=== PATIENT | female | born 1960 | race Caucasian/White ===

== ENCOUNTER 2017-09-16 08:28 | Emergency (ER) | payer SELFPAY ==
[2017-09-16 09:13] LABS: ABSOLUTE BASOPHILS # (AUTO) 0.1 10^3/uL (0.0-0.2); ABSOLUTE LYMPHOCYTES (AUTO) 1.3 10^3/uL (0.5-4.7); ABSOLUTE MONOCYTES (AUTO) 0.2 10^3/uL (0.1-1.4); ABSOLUTE NEUT (AUTO) 9.9 10^3/uL (1.7-8.2); BASOPHILS % (AUTO) 0.6 % (0-2); EOSINOPHILS % (AUTO) 0.1 % (0-6); HEMATOCRIT 42.8 % (36.0-47.0); HEMOGLOBIN 14.7 g/dL (12.0-15.5); LYMPHOCYTES % (AUTO) 11.3 % (13-45); MEAN CORPUSCULAR HEMOGLOBIN 31.7 pg (27.0-33.4); MEAN CORPUSCULAR HGB CONC 34.5 g/dL (32.0-36.0); MEAN CORPUSCULAR VOLUME 92 fl (80-97); MONOCYTES % (AUTO) 1.8 % (3-13); PLATELET COUNT 324 10^3/uL (150-450); RED BLOOD COUNT 4.65 10^6/uL (3.72-5.28); RED CELL DISTRIBUTION WIDTH 13.2 % (11.5-14.0); SEGMENTED NEUTROPHILS % (AUTO) 86.2 % (42-78); TOTAL CELLS COUNTED % (AUTO) 100 %; WHITE BLOOD COUNT 11.5 10^3/uL (4.0-10.5)
--- NOTE | 2017-09-16 09:16 | ER Document Report ---
ED GI/ - General Chief Complaint: Vomiting Stated Complaint: LOWER BACK PAIN/VOMITING Time Seen by Provider: 09/16/17 09:15 Mode of Arrival: Ambulatory Information source: Patient Notes: Patient is a 56-year-old female with a history of chronic low back pain who presents to the ER today for low back pain that seems to be worsening normal without any injury with nausea, vomiting and diarrhea that all began last night. Patient states that she "has not been able to sleep at all because of the pain. She states that the pain is worse on the right lower side. Patient denies any history of kidney stones, she does state that it does radiate around into the right upper abdomen. She denies any history of gallbladder disease or stones, does still have her gallbladder. She denies any fevers but admits to chills today. She denies any burning with urination or hematuria. TRAVEL OUTSIDE OF THE [place] IN LAST 30 DAYS: No - Related Data Allergies/Adverse Reactions: No Known Allergies Allergy (Verified 09/16/17 08:30) Past Medical History - General Information source: Patient - Social History Smoking Status: Current Every Day Smoker Family History: Malignancy - Breast cancer mother - Past Medical History Cardiac Medical History: Denies: Hx Coronary Artery Disease, Hx Heart Attack, Hx Hypertension Pulmonary Medical History: Reports: Hx Asthma Denies: Hx Bronchitis, Hx COPD, Hx Pneumonia Neurological Medical History: Denies: Hx Cerebrovascular Accident, Hx Seizures Musculoskeltal Medical History: Denies Hx Arthritis Past Surgical History: Reports: Hx Section. Denies: Hx Hysterectomy, Hx Pacemaker - Immunizations Hx Diphtheria, Pertussis, Tetanus Vaccination: Yes Review of Systems - Review of Systems Constitutional: No symptoms reported EENT: No symptoms reported Cardiovascular: No symptoms reported Respiratory: No symptoms reported Gastrointestinal: See HPI Genitourinary: See HPI Female Genitourinary: No symptoms reported Musculoskeletal: See HPI Skin: No symptoms reported Hematologic/Lymphatic: No symptoms reported Neurological/Psychological: No symptoms reported Physical Exam - Vital signs Vitals: Temp Pulse Resp BP Pulse Ox 97.8 F 67 20 152/93 H 99 09/16/17 08:35 09/16/17 08:35 09/16/17 08:35 09/16/17 08:35 09/16/17 08:35 - Notes Notes: PHYSICAL EXAMINATION: GENERAL: Obviously uncomfortable, but in no acute distress. HEAD: Atraumatic, normocephalic. EYES: Pupils equal round and reactive to light, extraocular movements intact, sclera anicteric, conjunctiva are normal. NECK: Normal range of motion, supple without lymphadenopathy LUNGS: CTAB and equal. No wheezes rales or rhonchi. HEART: Regular rate and rhythm without murmurs ABDOMEN: Soft, right upper quadrant, epigastric tenderness. No guarding, no rebound BACK: no vertebral tenderness, normal ROM GI/: Right CVA tenderness EXTREMITIES: Normal range of motion, no pitting edema. No cyanosis. NEUROLOGICAL: Cranial nerves grossly intact. Normal sensory/motor exams. PSYCH: Normal mood, normal affect. SKIN: Warm, Dry, normal turgor, no rashes or lesions noted Course - Re-evaluation Re-evalutation: 09/16/17 18:45 Patient's white blood cell count is mildly elevated at 11.5, other lab work today is unremarkable including a normal lipase and liver function, bilirubin, right upper quadrant ultrasound and CAT scan of the abdomen limited report no kidney stone or gallbladder disease. I believe this is likely viral in origin as patient started having nausea, vomiting, abdominal pain and diarrhea all at the same time today. Patient also has chronic back pain that may just be exacerbated by this. - Vital Signs Vital signs: Temp Pulse Resp BP Pulse Ox 98.5 F 81 18 116/66 95 09/16/17 12:55 09/16/17 12:55 09/16/17 12:55 09/16/17 12:55 09/16/17 12:55 - Laboratory Result Diagrams: 09/16/17 09:00 09/16/17 09:00 Laboratory results interpreted by me: 09/16/17 09/16/17 09/16/17 09:00 09:00 09:00 WBC 11.5 H Seg Neutrophils % 86.2 H Lymphocytes % 11.3 L Monocytes % 1.8 L Absolute Neutrophils 9.9 H Glucose 172 H Urine Protein 100 H Discharge - Discharge Clinical Impression: Abdominal pain Qualifiers: Abdominal location: lower abdomen, unspecified Qualified Code(s): R10.30 - Lower abdominal pain, unspecified Nausea & vomiting Qualifiers: Vomiting type: unspecified Vomiting Intractability: non-intractable Qualified Code(s): R11.2 - Nausea with vomiting, unspecified Diarrhea Qualifiers: Diarrhea type: unspecified type Qualified Code(s): R19.7 - Diarrhea, unspecified Back pain Qualifiers: Back pain location: low back pain Chronicity: acute Back pain laterality: right Sciatica presence: without sciatica Qualified Code(s): M54.5 - Low back pain Condition: Stable Disposition: HOME, SELF-CARE Instructions: Vomiting ([facility]) Additional Instructions: Drink plenty of fluids. Return immediately for any new or worsening symptoms. Follow up with primary care provider, call tomorrow to make followup appointment. Prescriptions: Ketorolac Tromethamine [Toradol 10 mg Tablet] 10 mg PO Q6HP PRN #15 tablet PRN Reason: Ondansetron [Zofran Odt 4 mg Tablet] 1 - 2 tab PO Q4H PRN #30 tab.rapdis PRN Reason: For Nausea/Vomiting
[2017-09-16] MEDS ORDERED: METOCLOPRAMIDE HCL INJ/PF 10 MG/2 ML SDV IV ONE (09:24)
[2017-09-16] MEDS ORDERED: NORMAL SALINE 1000 ML 1,000 ML IV ONE (09:24)
[2017-09-16] MEDS ORDERED: KETOROLAC TROMETHAMINE INJ/PF 30 MG/1 ML SDV IV ONE (09:24)
[2017-09-16 09:28] LABS: ALANINE AMINOTRANSFERASE 20 U/L (9-52); ALKALINE PHOSPHATASE 79 U/L (38-126); ANION GAP 12 (5-19); ASPARTATE AMINO TRANSFERASE 25 U/L (14-36); BILIRUBIN,DIRECT 0.3 mg/dL (0.0-0.4); BILIRUBIN,TOTAL 0.9 mg/dL (0.2-1.3); BLOOD UREA NITROGEN 9 mg/dL (7-20); CARBON DIOXIDE 30 mmol/L (22-30); CHLORIDE 102 mmol/L (98-107); GLUCOSE 172 mg/dL (75-110); POTASSIUM 4.6 mmol/L (3.6-5.0); SODIUM 143.6 mmol/L (137-145); TOTAL PROTEIN 8.2 g/dL (6.3-8.2)
[2017-09-16 09:52] LABS: APPEARANCE,URINE CLEAR; BILIRUBIN,URINE NEGATIVE (NEGATIVE); COLOR,URINE YELLOW; GLUCOSE, URINE NEGATIVE (NEGATIVE); KETONES,URINE NEGATIVE (NEGATIVE); LEUKOCYTE ESTERASE,URINE NEGATIVE (NEGATIVE); NITRITE,URINE NEGATIVE (NEGATIVE); PROTEIN,URINE 100 mg/dL (NEGATIVE); URINE SPECIFIC GRAVITY 1.021; UROBILINOGEN,URINE NEGATIVE mg/dL (<2.0)
--- NOTE | 2017-09-16 10:36 | RADIOLOGY REPORT (SQ) ---
EXAM DESCRIPTION: CT LTD RENAL STONE PROTOCOL ON COMPLETED DATE/TIME: 09/16/2017 9:59 am REASON FOR STUDY: right flank pain COMPARISON: 11/13/2010 TECHNIQUE: CT scan of the abdomen and pelvis performed without intravenous or oral contrast. Images reviewed with lung, soft tissue, and bone windows. Reconstructed coronal and sagittal MPR images revi ewed. All images stored on PACS. All CT scanners at this facility use dose modulation, iterative reconstruction, and/or weight based d osing when appropriate to reduce radiation dose to as low as reasonably achievable (ALARA). [facility]: Dose Right [facility]: CareDose [facility]: Dose Right [facility]: Teradose 4D [facility]: Smart [employer] RADIATION DOSE: CT Rad equipment meets quality standard of care and radiation dose reduction techniq ues were employed. CTDIvol: 4.8 mGy. DLP: 230 mGy-cm.mGy. LIMITATIONS: None. FINDINGS: LOWER CHEST: Mild emphysematous changes in the lungs. A 5-6 mm calcified granuloma at th e right lung base, stable finding. NON-CONTRASTED LIVER, SPLEEN, ADRENALS: Evaluation limited by lack of IV contrast. No identified sign ificant masses. PANCREAS: No masses. No peripancreatic inflammatory changes. GALLBLADDER: No identified stones by CT criteria. No inflammatory changes to suggest cholecystitis. RIGHT KIDNEY AND URETER: No suspicious masses. Assessment limited by lack of IV contrast. No signif icant calcifications. No hydronephrosis or hydroureter. LEFT KIDNEY AND URETER: No suspicious masses. Assessment limited by lack of IV contrast. No signifi cant calcifications. No hydronephrosis or hydroureter. AORTA AND RETROPERITONEUM: Atherosclerotic changes involving the abdominal aorta. No aneurysm. No r etroperitoneal masses or adenopathy. BOWEL AND PERITONEAL CAVITY: No obvious masses or inflammatory changes. No free fluid. APPENDIX: Normal. PELVIS, BLADDER, AND ABDOMINAL WALL:No abnormal masses. No free fluid. Bladder normal. BONES: The osseous structures are stable in appearance. Degenerative changes involving the lumbar s pine with disc disease at L1-2 and L5-S1. OTHER: No other significant finding. IMPRESSION: 1 NO SIGNIFICANT OR ACUTE PROCESS IN THE ABDOMEN OR PELVIS. 2. Additional stable findings as above. COMMENT: Quality ID # [id number]: Final reports with documentation of one or more dose reduction techniques (e.g., Automated exposure control, adjustment of the mA and/or kV according to patient size, use of iterative reconstruction technique) TECHNICAL DOCUMENTATION: JOB ID: [id number] [employer]- All Rights Reserved Reading location - IP/workstation name: [email or web address]
[2017-09-16] MEDS ORDERED: ONDANSETRON 4 MG TAB.RAPDIS PO ONE (10:56)
[2017-09-16] MEDS ORDERED: MORPHINE SULFATE 10 MG/ML INJ IV ONE ×2 (10:56→12:43)
--- NOTE | 2017-09-16 12:12 | RADIOLOGY REPORT (SQ) ---
EXAM DESCRIPTION: U/S ABDOMEN LIMITED W/O DOP COMPLETED DATE/TIME: 09/16/2017 11:45 am REASON FOR STUDY: ruq pain, rlq pain, right flank pain, n/v/d COMPARISON: None. TECHNIQUE: Dynamic and static grayscale images acquired of the abdomen and recorded on PACS. Additio nal selected color Doppler and spectral images recorded. LIMITATIONS: None. FINDINGS: PANCREAS: No masses. Visualized pancreatic duct normal caliber. LIVER: The liver measures 13.3 cm. No masses. Echotexture normal. LIVER VASCULATURE: Normal directional flow of the main portal vein and hepatic veins. GALLBLADDER: No stones. The gallbladder wall measures 1.4 mm, normal wall thickness. No pericholecys tic fluid. ULTRASOUND-DETECTED CENTENO'S SIGN: Negative. INTRAHEPATIC DUCTS AND COMMON DUCT: CBD measures 3.1 mm in diameter, normal. The intrahepatic ducts normal caliber. No filling defects. INFERIOR VENA CAVA: Normal flow. AORTA: No aneurysm. RIGHT KIDNEY: The right kidney measures 10.3 cm, normal size. Normal echogenicity. No solid or suspi cious masses. No hydronephrosis. No calcifications. PERITONEAL AND RIGHT PLEURAL SPACE: No ascites or effusions. OTHER: No other significant findings. IMPRESSION: NORMAL RIGHT UPPER QUADRANT ULTRASOUND. TECHNICAL DOCUMENTATION: JOB ID: [id number] [employer]- All Rights Reserved Reading location - IP/workstation name: [email or web address]
[2017-09-16 13:00] VITALS: BP 116/66
== END 2017-09-16 13:00 | disposition home or self-care (01) ==
LOC: ER 08:28
DX: M54.5 Low back pain (principal); R10.30 Lower abdominal pain, unspecified; R11.2 Nausea with vomiting, unspecified; R19.7 Diarrhea, unspecified; F17.200 Nicotine dependence, unspecified, uncomplicated; J45.909 Unspecified asthma, uncomplicated
CPT/HCPCS: 99284; 96361; 96374; 96375; 36415; 83690; 85025; 80053; 81001; 76705; 76380; S0119; J1885; J2765; J2270; J7030

== ENCOUNTER 2017-09-17 17:59 | Emergency (ER) | payer SELFPAY ==
[2017-09-17 18:14] VITALS: BP 151/76
[2017-09-17] MEDS ORDERED: PROMETHAZINE HCL INJ 25 MG/1 ML VIAL IM ONE (18:37)
--- NOTE | 2017-09-17 18:42 | ER Document Report ---
ED GI/ - General Chief Complaint: Vomiting Stated Complaint: VOMITING AND BACK PAIN Time Seen by Provider: 09/17/17 18:30 Notes: The patient is a 56-year-old female, past medical history chronic back pain, presents with 2 days of nausea, vomiting and diarrhea. She was seen in the ER yesterday and had a negative workup, including a normal CAT scan, right upper quadrant ultrasound and blood work. She was given Zofran, but does not feel this is helping her nausea. She is only able to drink small sips of fluids. Denies any change in pain, hematemesis, fevers TRAVEL OUTSIDE OF THE [place] IN LAST 30 DAYS: No - Related Data Allergies/Adverse Reactions: No Known Allergies Allergy (Verified 09/16/17 08:30) Past Medical History - General Information source: Patient - Social History Smoking Status: Current Every Day Smoker Chew tobacco use (# tins/day): No Frequency of alcohol use: Rare Drug Abuse: Marijuana Family History: Malignancy - Breast cancer mother Patient has suicidal ideation: No Patient has homicidal ideation: No - Past Medical History Cardiac Medical History: Denies: Hx Coronary Artery Disease, Hx Heart Attack, Hx Hypertension Pulmonary Medical History: Reports: Hx Asthma Denies: Hx Bronchitis, Hx COPD, Hx Pneumonia Neurological Medical History: Denies: Hx Cerebrovascular Accident, Hx Seizures Renal/ Medical History: Denies: Hx Peritoneal Dialysis Musculoskeltal Medical History: Denies Hx Arthritis Past Surgical History: Reports: Hx Section. Denies: Hx Hysterectomy, Hx Pacemaker - Immunizations Hx Diphtheria, Pertussis, Tetanus Vaccination: Yes Review of Systems - Review of Systems Notes: REVIEW OF SYSTEMS: CONSTITUTIONAL: -fevers, -chills EENT: -eye pain, -difficulty swallowing, -nasal congestion CARDIOVASCULAR: -chest pain, -syncope. RESPIRATORY: -cough, -SOB GASTROINTESTINAL: -abdominal pain, +nausea, +vomiting, +diarrhea GENITOURINARY: -dysuria, -hematuria MUSCULOSKELETAL: -back pain, -neck pain SKIN: -rash or skin lesions. HEMATOLOGIC: -easy bruising or bleeding. LYMPHATIC: -swollen, enlarged glands. NEUROLOGICAL: -altered mental status or loss of consciousness, -headache, - neurologic symptoms PSYCHIATRIC: -anxiety, -depression. ALL OTHER SYSTEMS REVIEWED AND NEGATIVE. Physical Exam - Vital signs Vitals: Temp Pulse Resp BP Pulse Ox 98.3 F 76 18 151/76 H 96 09/17/17 18:13 09/17/17 18:13 09/17/17 18:13 09/17/17 18:13 09/17/17 18:13 - Notes Notes: PHYSICAL EXAMINATION: GENERAL: Well-appearing, well-nourished and in no acute distress. HEAD: Atraumatic, normocephalic. EYES: Pupils equal round and reactive to light, extraocular movements intact, sclera anicteric, conjunctiva are normal. ENT: nares patent, oropharynx clear without exudates. Moist mucous membranes. NECK: Normal range of motion, supple without lymphadenopathy LUNGS: Breath sounds clear to auscultation bilaterally and equal. No wheezes rales or rhonchi. HEART: Regular rate and rhythm without murmurs ABDOMEN: Soft, nontender, normoactive bowel sounds. No guarding, no rebound. No masses appreciated. EXTREMITIES: Normal range of motion, no pitting or edema. No cyanosis. NEUROLOGICAL: Cranial nerves grossly intact. Normal speech, normal gait. Normal sensory and motor exams. PSYCH: Normal mood, normal affect. SKIN: Warm, Dry, normal turgor, no rashes or lesions noted. Course - Re-evaluation Re-evalutation: Patient does not appear to be severely dehydrated with normal vital signs and moist mucous membranes. After Phenergan, she is tolerating fluids well in the emergency room. She already had negative CAT scan and ultrasound of her right upper quadrant yesterday, as well as normal blood work. Will discharge home with Phenergan and instructions to stay hydrated, as the patient says Zofran does not work as well. - Vital Signs Vital signs: Temp Pulse Resp BP Pulse Ox 98.3 F 76 18 151/76 H 96 09/17/17 18:13 09/17/17 18:13 09/17/17 18:13 09/17/17 18:13 09/17/17 18:13 - Laboratory Laboratory results interpreted by me: 09/17/17 18:40 Urine Protein 30 H Urine Ketones 20 H Urine Blood MODERATE H Ur Leukocyte Esterase SMALL H Discharge - Discharge Clinical Impression: Nausea & vomiting Qualifiers: Vomiting type: unspecified Vomiting Intractability: unspecified Qualified Code( s): R11.2 - Nausea with vomiting, unspecified Diarrhea Qualifiers: Diarrhea type: unspecified type Qualified Code(s): R19.7 - Diarrhea, unspecified Condition: Stable Disposition: HOME, SELF-CARE Additional Instructions: VOMITING: Vomiting (or nausea without vomiting) can be caused by many other different problems. It can mean that something's wrong with the stomach, such as ulcers or inflammation or the intestinal tract, such as appendicitis. But it can also be a symptom of a problem that has nothing to do with the stomach or intestines. Vomiting is common with severe headaches, earaches, tonsillitis, and kidney infections, etc. We see it with pneumonia or heart attacks. Drugs can cause nausea and vomiting. Many abdominal problems cause vomiting; for example, gallstones, kidney stones, pancreatitis, and intestinal obstruction ( blocked bowels). In most cases, curing the vomiting depends on fixing the problem that caused it. For temporary relief, we may use an anti-nausea medicine. For home use, we can prescribe suppositories, chewable pills, pills that dissolve in the mouth, or liquid anti-nausea drugs. If the vomiting seems to be caused by a problem in the stomach, acid-suppressing drugs may be prescribed as well. It's important to avoid dehydration. Sip small amounts of clear liquids ( soft drinks, tea, broth, etc) . Try to take fluids frequently even if you are vomiting to prevent dehydration. Take increasing amounts of fluid and when liquids are being consumed successfully, advance to small amounts of bland food (toast, soups, mashed potatoes, etc.) until you are able to resume a regular diet. Avoid aspirin, tobacco, and alcohol. If the vomiting worsens, if the problem that's making you vomit worsens, or if there's evidence of bleeding in the stomach (such as black, tarry stool, or bloody or black vomit), you should return immediately. Also, return if abdominal pain worsens or becomes localized to one area or you develop high fever. Call your doctor if you aren't improved in 24 hours. DIARRHEA, NON-SPECIFIC: Diarrhea means frequent, watery stools. There are many causes. Any problem that keeps the intestinal tract from absorbing water from the stool can lead to diarrhea. A sudden new diarrhea problem is usually caused by a virus, food sensitivity, toxic bacteria, or drugs. In this case, we expect the problem to go away soon. Testing is done only if you seem seriously ill from the diarrhea. If you have chronic diarrhea, or diarrhea that keeps coming back, we need to find out why. Chronic diarrhea can be due to inflammation of the bowels such as Crohn's disease or ulcerative colitis, food sensitivity such as intolerance to lactose or wheat protein, irritable bowel syndrome, and other problems. If your diarrhea is a significant problem but it's not clear why you have it, we' ll refer you to a specialist for further testing. During an episode of diarrhea, drink small amounts (two to six ounces) of clear liquids (soft drinks, sport drinks, herb teas, broth, etc). Take fluids frequently to prevent dehydration. It's usually not a problem to take mild anti- diarrhea medication such as Kaopectate or Pepto-Bismol. As the diarrhea eases, advance to small amounts of bland food (mashed potato, toast) for 24 hours. Call the physician if blood appears in your vomit or stool, if vomiting lasts longer than 24 hours, if the abdominal pain worsens or becomes localized to one area, if you develop high fever, or if you become lightheaded and weak. VIRAL SYNDROME: The physician has diagnosed a viral infection. Viruses not only cause "colds," but can cause many different symptoms including generalized aching, fever, headache, cough, diarrhea, nausea, vomiting, and fatigue. The treatment, for the most part, is simply relief of symptoms. This means that antibiotics are usually not given. Rest, fluids, pain medications and, occasionally, medication for the specific symptoms that are most bothersome will be prescribed. Use good handwashing to avoid passing the virus to others. Shared toys should be cleaned with disinfectant. Clean the toilets, sinks, and counter surfaces in bathrooms. Launder clothing in hot water. Contact the physician if you develop any new or unusual symptoms such as severe headache, stiff neck, high fever, chest pain, productive cough, or shortness of breath. You should be rechecked if you don't see marked improvement within seven to 10 days. ANTINAUSEA MEDICATION: You have been given a medication to suppress nausea and vomiting. This type of medication can be given as a shot, pill, or suppository. It will usually last for many hours. Pills and shots usually last six to eight hours. For the typical illness, only one or two doses of the medication may be necessary. Mild lightheadedness may occur. This type of medicine can cause drowsiness. Do not drive or operate dangerous machinery while under its influence. Do not mix with alcohol. See your doctor at once if you have muscle spasms or tightness, or uncontrollable motions (particularly of the neck, mouth, or jaw). Persistent vomiting or severe lightheadedness should also be evaluated by the physician. FOLLOW-UP CARE: If you have been referred to a physician for follow-up care, call the physician s office for an appointment as you were instructed or within the next two days. If you experience worsening or a significant change in your symptoms, notify the physician immediately or return to the Emergency Department at any time for re-evaluation. Prescriptions: Promethazine HCl [Phenergan 25 mg Tablet] 1 - 2 tab PO Q6H PRN #15 tablet PRN Reason: Forms: Elevated Blood Pressure Referrals: BRITTNEY AGUAYO MD [ACTIVE STAFF] - Follow up as needed
[2017-09-17 19:02] LABS: APPEARANCE,URINE SLIGHTLY-CLOUDY; BILIRUBIN,URINE NEGATIVE (NEGATIVE); COLOR,URINE YELLOW; GLUCOSE, URINE NEGATIVE (NEGATIVE); KETONES,URINE 20 mg/dL (NEGATIVE); LEUKOCYTE ESTERASE,URINE SMALL (NEGATIVE); NITRITE,URINE NEGATIVE (NEGATIVE); PROTEIN,URINE 30 mg/dL (NEGATIVE); URINE SPECIFIC GRAVITY 1.024; UROBILINOGEN,URINE NEGATIVE mg/dL (<2.0)
== END 2017-09-17 19:34 | disposition home or self-care (01) ==
LOC: ER 17:59
DX: R11.2 Nausea with vomiting, unspecified (principal); R19.7 Diarrhea, unspecified; F17.200 Nicotine dependence, unspecified, uncomplicated; J45.909 Unspecified asthma, uncomplicated
CPT/HCPCS: 99284; 96372; 81001; J2550

== ENCOUNTER 2019-08-11 11:28 | Emergency (ER) | payer SELFPAY ==
--- NOTE | 2019-08-11 11:43 | ER Document Report ---
ED Medical Screen (RME) - General Chief Complaint: Breathing Difficulty Stated Complaint: BREATHING DIFFICULTY Time Seen by Provider: 08/11/19 11:36 Mode of Arrival: Wheelchair Information source: Patient Notes: HPI; 58-year-old female past medical history significant for COPD presented to the emergency room complaining of shortness of breath for the past 3 to 4 days. Has been using her inhaler with some relief ran out of her inhaler yesterday. Also complained of midsternal chest pain that has been intermittent over the past 3 days worse today. No other medications for symptoms. Initial EKG was not done as patient initial complaint was shortness of breath not chest pain. Denies any recent travel. No COVID-19 exposure. PE: Alert and oriented x3, moderate distress noted. Lungs: Clear to auscultation without rales rhonchi or wheezes. Heart: Regular rate rhythm without murmurs rubs or gallops. Cardiac work-up initiated. I have greeted and performed a rapid initial assessment of this patient. A comprehensive ED assessment and evaluation of the patient, analysis of test results and completion of the medical decision making process will be conducted by additional ED providers. I have specifically instructed the patient or family members with the patient to immediately return to any nursing staff should anything change in the patient's condition or with their chief complaint. TRAVEL OUTSIDE OF THE [place] IN LAST 30 DAYS: No - Related Data Allergies/Adverse Reactions: No Known Allergies Allergy (Verified 09/16/17 08:30) Past Medical History - Past Medical History Cardiac Medical History: Denies: Hx Coronary Artery Disease, Hx Heart Attack, Hx Hypertension Pulmonary Medical History: Reports: Hx Asthma Denies: Hx Bronchitis, Hx COPD, Hx Pneumonia Neurological Medical History: Denies: Hx Cerebrovascular Accident, Hx Seizures Renal/ Medical History: Denies: Hx Peritoneal Dialysis Musculoskeltal Medical History: Denies Hx Arthritis Past Surgical History: Reports: Hx Section. Denies: Hx Hysterectomy, Hx Pacemaker - Immunizations Hx Diphtheria, Pertussis, Tetanus Vaccination: Yes Physical Exam - Vital signs Vitals: Temp Pulse Resp BP Pulse Ox 98.7 F 92 24 H 158/66 H 98 08/11/19 11:33 08/11/19 11:33 08/11/19 11:33 08/11/19 11:33 08/11/19 11:33 Course - Vital Signs Vital signs: Temp Pulse Resp BP Pulse Ox 98.7 F 92 24 H 158/66 H 98 08/11/19 11:33 08/11/19 11:33 08/11/19 11:33 08/11/19 11:33 08/11/19 11:33
[2019-08-11 12:07] LABS: ABSOLUTE EOSINOPHILS # (AUTO) 0.2 10^3/uL (0.0-0.6); ABSOLUTE LYMPHOCYTES (AUTO) 1.7 10^3/uL (0.5-4.7); ABSOLUTE MONOCYTES (AUTO) 0.4 10^3/uL (0.1-1.4); ABSOLUTE NEUT (AUTO) 3.9 10^3/uL (1.7-8.2); BASOPHILS % (AUTO) 0.8 % (0-2); EOSINOPHILS % (AUTO) 2.7 % (0-6); HEMATOCRIT 42.5 % (36.0-47.0); HEMOGLOBIN 14.7 g/dL (12.0-15.5); LYMPHOCYTES % (AUTO) 27.3 % (13-45); MEAN CORPUSCULAR HEMOGLOBIN 31.9 pg (27.0-33.4); MEAN CORPUSCULAR HGB CONC 34.4 g/dL (32.0-36.0); MEAN CORPUSCULAR VOLUME 93 fl (80-97); MONOCYTES % (AUTO) 5.9 % (3-13); PLATELET COUNT 272 10^3/uL (150-450); RED BLOOD COUNT 4.59 10^6/uL (3.72-5.28); RED CELL DISTRIBUTION WIDTH 11.9 % (11.5-14.0); SEGMENTED NEUTROPHILS % (AUTO) 63.3 % (42-78); TOTAL CELLS COUNTED % (AUTO) 100 %; WHITE BLOOD COUNT 6.2 10^3/uL (4.0-10.5)
[2019-08-11 12:26] LABS: ALBUMIN 4.7 g/dL (3.5-5.0); ALKALINE PHOSPHATASE 63 U/L (38-126); ANION GAP 7 (5-19); ASPARTATE AMINO TRANSFERASE 25 U/L (14-36); CALCIUM 10.1 mg/dL (8.4-10.2); CARBON DIOXIDE 29 mmol/L (22-30); CHLORIDE 103 mmol/L (98-107); CREATINE KINASE 78 U/L (30-135); POTASSIUM 4.4 mmol/L (3.6-5.0); TOTAL PROTEIN 7.7 g/dL (6.3-8.2)
[2019-08-11 12:38] LABS: BLOOD UREA NITROGEN 12 mg/dL (7-20); CREATINE KINASE MB 1.41 ng/mL (<4.55); GLUCOSE 103 mg/dL (75-110)
[2019-08-11 12:41] LABS: TROPONIN I < 0.012 ng/mL
[2019-08-11 12:51] LABS: BILIRUBIN,TOTAL 0.7 mg/dL (0.2-1.3)
--- NOTE | 2019-08-11 13:07 | RADIOLOGY REPORT (SQ) ---
EXAM DESCRIPTION: CHEST SINGLE VIEW IMAGES COMPLETED DATE/TIME: 08/11/2019 12:53 pm REASON FOR STUDY: chest pain COMPARISON: 11/06/2015. EXAM PARAMETERS: NUMBER OF VIEWS: One view. TECHNIQUE: Single frontal radiographic view of the chest acquired. RADIATION DOSE: NA LIMITATIONS: None. FINDINGS: LUNGS AND PLEURA: 2.5 cm left perihilar mass. The lungs are otherwise clear. No lobar in filtrates. No pleural effusion or pneumothorax. MEDIASTINUM AND HILAR STRUCTURES: No masses. Contour normal. HEART AND VASCULAR STRUCTURES: Heart normal in size. Normal vasculature. BONES: No acute findings. HARDWARE: None in the chest. OTHER: No other significant finding. IMPRESSION: LEFT PERIHILAR LUNG MASS. NO OTHER SIGNIFICANT FINDINGS. TECHNICAL DOCUMENTATION: JOB ID: [id number] [employer]- All Rights Reserved Reading location - IP/workstation name: [email or web address]
[2019-08-11] MEDS ORDERED: IPRATROPIUM BROMIDE 0.02% NEB 0.5 MG/2.5 ML AMPUL NEB ONE (13:08)
[2019-08-11] MEDS ORDERED: PREDNISONE 20 MG TABLET PO ONE (13:08)
[2019-08-11] MEDS ORDERED: ALBUTEROL SULFATE 0.083% NEB 2.5 MG/3 ML AMPUL NEB ONE (13:08)
--- NOTE | 2019-08-11 13:16 | ER Document Report ---
ED General - General Chief Complaint: Shortness Of Breath Stated Complaint: BREATHING DIFFICULTY Time Seen by Provider: 08/11/19 11:36 Mode of Arrival: Wheelchair Information source: Patient TRAVEL OUTSIDE OF THE [place] IN LAST 30 DAYS: No - HPI Notes: Patient presents with shortness of breath. She states is been going on for approximately 2 days. She states she has had an increased cough and feels like this is an exacerbation of her COPD. She states recently she was being worked up for a possible lung mass and was having biopsies and CT scans. She states she is post to have a repeat biopsy but she has not proceeded with this procedure yet. She denies any pain. Her shortness of breath was worse with exertion and better with rest. There is obviously no radiation of the symptoms. The symptoms have been relatively constant. She denies any fevers chills sweats. No rashes. - Related Data Allergies/Adverse Reactions: No Known Allergies Allergy (Verified 09/16/17 08:30) Past Medical History - General Information source: Patient - Social History Smoking Status: Current Every Day Smoker Frequency of alcohol use: Occasional Drug Abuse: None Family History: Malignancy - Breast cancer mother Patient has homicidal ideation: No - Past Medical History Cardiac Medical History: Denies: Hx Coronary Artery Disease, Hx Heart Attack, Hx Hypertension Pulmonary Medical History: Reports: Hx Asthma, Hx COPD Denies: Hx Bronchitis, Hx Pneumonia Neurological Medical History: Denies: Hx Cerebrovascular Accident, Hx Seizures Renal/ Medical History: Denies: Hx Peritoneal Dialysis Musculoskeletal Medical History: Denies Hx Arthritis Past Surgical History: Reports: Hx Section. Denies: Hx Hysterectomy, Hx Pacemaker - Immunizations Hx Diphtheria, Pertussis, Tetanus Vaccination: Yes Review of Systems - Review of Systems Constitutional: Malaise. denies: Chills, Fever Cardiovascular: denies: Chest pain, Palpitations Respiratory: Cough, Short of breath -: Yes All other systems reviewed and negative Physical Exam - Vital signs Vitals: Temp Pulse Resp BP Pulse Ox 98.7 F 92 24 H 158/66 H 98 08/11/19 11:33 08/11/19 11:33 08/11/19 11:33 08/11/19 11:33 08/11/19 11:33 Interpretation: Normal - General General appearance: Appears well, Alert - HEENT Head: Normocephalic, Atraumatic Eyes: Normal Pupils: PERRL - Respiratory Respiratory status: No respiratory distress Chest status: Nontender Breath sounds: Decreased air movement, Rhonchi Chest palpation: Normal - Cardiovascular Rhythm: Regular Heart sounds: Normal auscultation Murmur: No - Abdominal Inspection: Normal Distension: No distension Bowel sounds: Normal Tenderness: Nontender Organomegaly: No organomegaly - Back Back: Normal, Nontender - Extremities General upper extremity: Normal inspection, Nontender, Normal color, Normal ROM, Normal temperature General lower extremity: Normal inspection, Nontender, Normal color, Normal ROM, Normal temperature, Normal weight bearing. No: Dana's sign - Neurological Neuro grossly intact: Yes Cognition: Normal Orientation: AAOx4 Dionicio Coma Scale Eye Opening: Spontaneous [place] Coma Scale Verbal: Oriented [place] Coma Scale Motor: Obeys Commands Dionicio Coma Scale Total: 15 Speech: Normal Motor strength normal: LUE, RUE, LLE, RLE Sensory: Normal - Psychological Associated symptoms: Normal affect, Normal mood - Skin Skin Temperature: Warm Skin Moisture: Dry Skin Color: Normal Course - Re-evaluation Re-evalutation: 08/11/19 13:11 Patient presents with shortness of breath. On exam she has unlabored respirations and appears to be relaxing comfortably in the bed. She has only minimal rhonchi. She is not tachycardic or tachypneic. Her vital signs are otherwise stable. She has no fever. Her oxygen saturation is stable. She has no elevated white blood cell count. Her chest x-ray shows no infectious process. It does show a left perihilar mass which she is currently under treatment for. She does state that she is out of her home medications for COPD which I will refill. - Vital Signs Vital signs: Temp Pulse Resp BP Pulse Ox 98.7 F 92 25 H 114/82 99 08/11/19 11:37 08/11/19 11:33 08/11/19 12:08 08/11/19 12:08 08/11/19 12:30 - Laboratory Result Diagrams: 08/11/19 11:48 08/11/19 11:48 - Diagnostic Test Radiology reviewed: Image reviewed, Reports reviewed - EKG Interpretation by Tn EKG shows normal: Sinus rhythm Rate: Normal - 78 Rhythm: NSR Rescue/QRS: No: Right axis deviation, Left axis deviation Discharge - Discharge Clinical Impression: Acute exacerbation of chronic obstructive pulmonary disease (COPD) Condition: Stable Disposition: HOME, SELF-CARE Instructions: Chronic Obstructive Lung Disease ([facility]) Additional Instructions: Please follow-up for your repeat biopsy as instructed. You still have the mass on your x-ray. Prescriptions: Ipratropium/Albuterol Sulfate [Combivent Respimat 4 gm Mdi] 1 puff IH Q4 #1 aer.[email or web address] Prednisone [Deltasone 20 mg Tablet] 60 mg PO DAILY 5 Days #15 tablet Ipratropium/Albuterol Sulfate [Duoneb 3 ml Ampul] 3 ml NEB BID PRN 30 Days #100 vial.neb PRN Reason: Forms: Return to Work Referrals: [facility] [place] [Provider Group] - Follow up in 1 week
[2019-08-11 14:13] VITALS: BP 105/92
--- NOTE | 2019-08-11 19:37 | EKG REPORT ---
SEVERITY:- OTHERWISE NORMAL ECG - SINUS RHYTHM MINIMAL ST DEPRESSION, DIFFUSE LEADS : Confirmed by: Azra Okeefe 11-Aug-2019 19:36:34
== END 2019-08-11 14:14 | disposition home or self-care (01) ==
LOC: ER 11:28
DX: J44.1 Chronic obstructive pulmonary disease with (acute) exacerbation (principal); R91.8 Other nonspecific abnormal finding of lung field; R06.02 Shortness of breath; R05 Cough; R53.81 Other malaise; F17.200 Nicotine dependence, unspecified, uncomplicated
CPT/HCPCS: 93005; 94640; 99285; 36415; 82553; 82550; 85025; 80053; 84484; 71045; 93010; J7512; J3490

== ENCOUNTER 2019-08-24 09:31 | Emergency (ER) | payer SELFPAY ==
[2019-08-24 09:36] VITALS: BP 144/93
[2019-08-24] MEDS ORDERED: KETOROLAC TROMETHAMINE 60 MG/2 ML SDV IM ONE (09:55)
--- NOTE | 2019-08-24 09:56 | ER Document Report ---
ED Extremity Problem, Upper - General Chief Complaint: Shoulder Pain Stated Complaint: ARM PAIN Time Seen by Provider: 08/24/19 09:49 Notes: CHIEF COMPLAINT: Right shoulder and arm pain with movement for 2 days HPI: 58-year-old female who is right-hand dominant presenting to the emergency department complaining of pain in the right shoulder and upper arm with movement over the last 2 days no specific trauma. Denies chest pain shortness of breath. Pain eases when she does not move the arm. States she could not pick the arm up at the shoulder secondary to severe pain across the anterior shoulder. No weakness in the arm or fingers. States she can move the hand wrist and elbow. ROS: See HPI - all other systems were reviewed and are otherwise negative Constitutional: no fever Eyes: no drainage, no blurred vision ENT: no runny nose, no sore throat Cardiovascular: no chest pain Resp: no SOB, no cough GI: no vomiting, no diarrhea, no abdominal pain : no dysuria Integumentary: no rash Allergy: no hives Musculoskeletal: + extremity pain or swelling Neurological: no numbness/tingling, no weakness MEDICATIONS: I agree with the patient medications as charted by the RN. ALLERGIES: I agree with the allergies as charted by the RN. PAST MEDICAL HISTORY/PAST SURGICAL HISTORY: Reviewed and agree as charted by RN. SOCIAL HISTORY: Reviewed and agree as charted by RN. FAMILY HISTORY: No significant familial comorbid conditions directly related to patient complaint EXAM: Reviewed vital signs as charted by RN. CONSTITUTIONAL: Alert and oriented and responds appropriately to questions. Well-appearing; well-nourished HEAD: Normocephalic; atraumatic EYES: PERRL; Conjunctivae clear, sclerae non-icteric ENT: normal nose; no rhinorrhea; moist mucous membranes; pharynx without lesions noted, no uvula edema or deviation, no tonsillar hypertrophy, phonation normal NECK: Supple without meningismus; non-tender; no cervical lymphadenopathy, no masses CARD: RRR; no murmurs, no clicks, no rubs, no gallops; symmetric distal pulses RESP: Normal chest excursion without splinting or tachypnea; breath sounds clear and equal bilaterally; trace expiratory wheezing noted wheezes, no rhonchi, no rales, pulse oximetry 96% on room air not hypoxic ABD/GI: Normal bowel sounds; non-distended; soft, non-tender, no rebound, no guarding; no palpable organomegaly or masses. BACK: The back appears normal and is non-tender to palpation, there is no CVA tenderness EXT: There is tenderness across the anterior shoulder girdle on the right to palpation. Patient is limiting abduction and abduction of the right arm at the shoulder secondary to complaints of pain. There is no discomfort on palpation of the right elbow right wrist. Patient is able to range the right arm at the elbow and wrist without difficulty. Necktie Maker are equal strength 5/5 upper extremities bilateral. SKIN: Normal color for age and race; warm; dry; good turgor; no acute lesions noted NEURO: Moves all extremities equally; Motor and sensory function intact PSYCH: The patient's mood and manner are appropriate. Grooming and personal hygiene are appropriate. MDM: 58-year-old female with pain across the anterior deltoid region of the shoulder to palpation and movement suspect a rotator cuff tendinitis. Her pain is specific to movement low suspicion for ACS. Will obtain x-ray to evaluate bone structure but likely place patient on anti-inflammatories ice and orthopedic follow-up TRAVEL OUTSIDE OF THE [place] IN LAST 30 DAYS: No - Related Data Allergies/Adverse Reactions: No Known Allergies Allergy (Verified 09/16/17 08:30) Past Medical History - Social History Smoking Status: Current Every Day Smoker Frequency of alcohol use: Occasional Drug Abuse: None Family History: Malignancy - Breast cancer mother Patient has homicidal ideation: No - Past Medical History Cardiac Medical History: Denies: Hx Coronary Artery Disease, Hx Heart Attack, Hx Hypertension Pulmonary Medical History: Reports: Hx Asthma, Hx COPD Denies: Hx Bronchitis, Hx Pneumonia Neurological Medical History: Denies: Hx Cerebrovascular Accident, Hx Seizures Renal/ Medical History: Denies: Hx Peritoneal Dialysis Musculoskeletal Medical History: Denies Hx Arthritis Past Surgical History: Reports: Hx Section. Denies: Hx Hysterectomy, Hx Pacemaker - Immunizations Hx Diphtheria, Pertussis, Tetanus Vaccination: Yes Physical Exam - Vital signs Vitals: Temp 98.3 F 08/24/19 09:31 Course - Re-evaluation Re-evalutation: 08/24/19 10:16 X-ray on my review does not reveal evidence of dislocation or fracture. Will discharge home to follow-up with orthopedics - Vital Signs Vital signs: Temp Pulse Resp BP Pulse Ox 98.3 F 94 21 H 144/93 H 97 08/24/19 09:34 08/24/19 09:34 08/24/19 09:34 08/24/19 09:34 08/24/19 09:34 Discharge - Discharge Clinical Impression: Tendinitis of right rotator cuff Condition: Stable Disposition: HOME, SELF-CARE Instructions: Rotator Cuff Injury ([facility]) Additional Instructions: Take the Voltaren consistently for pain. Ice to the shoulder for 5 to 10 minutes at a time 3 times daily for the next 3 to [address] ice directly on the skin. Follow-up closely with both your primary care provider and with orthopedics for further evaluation and management. Your x-ray does not show evidence of a bony injury today this is likely an inflammation of the tendons in your shoulder. If you have worsening pain or develop chest pain or shortness of breath return for reevaluation Prescriptions: Diclofenac Sodium [Voltaren 50 Mg Tablet.] 50 mg PO BID #20 tablet. Referrals: YAHAIRA RASMEY DO [ACTIVE STAFF] - Follow up as needed
--- NOTE | 2019-08-24 11:19 | RADIOLOGY REPORT (SQ) ---
EXAM DESCRIPTION: SHOULDER RIGHT 2 OR MORE VIEWS IMAGES COMPLETED DATE/TIME: 08/24/2019 10:19 am REASON FOR STUDY: pain COMPARISON: None. NUMBER OF VIEWS: Three views. TECHNIQUE: Internal rotation, external rotation, and Y view images acquired of the right shoulder. LIMITATIONS: None. FINDINGS: MINERALIZATION: Normal. BONES: No acute fracture. No worrisome bone lesions. JOINTS: Mild acromioclavicular arthrosis. No dislocation. VISUALIZED LUNGS AND RIBS: No pneumothorax. No rib fracture. SOFT TISSUES: No radiopaque foreign body. OTHER: No other significant finding. IMPRESSION: 1. No acute osseous findings. 2. Mild acromioclavicular arthrosis. TECHNICAL DOCUMENTATION: JOB ID: [id number] 2010 [employer]- All Rights Reserved Reading location - IP/workstation name: [email or web address]
== END 2019-08-24 10:25 | disposition home or self-care (01) ==
LOC: ER 09:31
DX: M75.101 Unspecified rotator cuff tear or rupture of right shoulder, not specified as traumatic (principal); M25.511 Pain in right shoulder; M79.601 Pain in right arm; M79.89 Other specified soft tissue disorders; J44.9 Chronic obstructive pulmonary disease, unspecified; F17.200 Nicotine dependence, unspecified, uncomplicated
CPT/HCPCS: 99283; 96372; 73030; J1885

== ENCOUNTER 2019-09-04 10:33 | Emergency (ER) | payer SELFPAY ==
[2019-09-04 10:55] VITALS: BP 106/61
== END 2019-09-04 14:01 | disposition left against medical advice (07) ==
LOC: ER 10:33
DX: Z53.21 Procedure and treatment not carried out due to patient leaving prior to being seen by health care provider (principal)

== ENCOUNTER 2019-09-16 10:12 | Inpatient (IN) | payer SELFPAY ==
--- NOTE | 2019-09-16 11:01 | RADIOLOGY REPORT (SQ) ---
EXAM DESCRIPTION: CHEST SINGLE VIEW IMAGES COMPLETED DATE/TIME: 09/16/2019 10:50 am REASON FOR STUDY: SOB COMPARISON: 08/11/2019 EXAM PARAMETERS: NUMBER OF VIEWS: One view. TECHNIQUE: Single frontal radiographic view of the chest acquired. RADIATION DOSE: NA LIMITATIONS: None. FINDINGS: LUNGS AND PLEURA: Persistent left perihilar masslike opacity with increased left mid lung airspace disease from prior. No pleural effusion. No pneumothorax. Emphysematous change bilaterall y. MEDIASTINUM AND HILAR STRUCTURES: Persistent left perihilar mass. HEART AND VASCULAR STRUCTURES: Heart normal in size. Normal vasculature. BONES: No acute findings. HARDWARE: None in the chest. OTHER: No other significant finding. IMPRESSION: Persistent left perihilar mass like opacity with increased left mid lung airspace diseas e, likely postobstructive atelectasis or pneumonia. CT warranted for further characterization if not previously performed. TECHNICAL DOCUMENTATION: JOB ID: [id number] 2010 [employer]- All Rights Reserved Reading location - IP/workstation name: [email or web address]
[2019-09-16] MEDS ORDERED: IPRATROPIUM/ALBUTEROL 0.5-2.5 MG/3 ML AMPUL NEB ONE (11:09)
[2019-09-16] MEDS ORDERED: OXYCODONE-ACETAMINOPHEN 5-325 MG TABLET PO ONE (11:09)
[2019-09-16 11:19] LABS: HEMATOCRIT 33.6 % (36.0-47.0); HEMOGLOBIN 11.9 g/dL (12.0-15.5); MEAN CORPUSCULAR HEMOGLOBIN 32.2 pg (27.0-33.4); MEAN CORPUSCULAR HGB CONC 35.4 g/dL (32.0-36.0); MEAN CORPUSCULAR VOLUME 91 fl (80-97); PLATELET COUNT 572 10^3/uL (150-450); RED CELL DISTRIBUTION WIDTH 12.8 % (11.5-14.0); WHITE BLOOD COUNT 19.2 10^3/uL (4.0-10.5)
[2019-09-16 11:44] LABS: ALBUMIN 3.4 g/dL (3.5-5.0); ALKALINE PHOSPHATASE 160 U/L (38-126); ANION GAP 9 (5-19); ASPARTATE AMINO TRANSFERASE 36 U/L (14-36); BILIRUBIN,DIRECT 0.1 mg/dL (0.0-0.4); BILIRUBIN,TOTAL 0.5 mg/dL (0.2-1.3); BLOOD UREA NITROGEN 9 mg/dL (7-20); CALCIUM 9.2 mg/dL (8.4-10.2); CARBON DIOXIDE 29 mmol/L (22-30); CHLORIDE 91 mmol/L (98-107); CREATINE KINASE 31 U/L (30-135); GLUCOSE 175 mg/dL (75-110); POTASSIUM 4.9 mmol/L (3.6-5.0); TOTAL PROTEIN 6.7 g/dL (6.3-8.2)
[2019-09-16 11:54] LABS: BAND NEUTROPHILS % (MANUAL) 2 % (3-5); BASOPHILS % (MANUAL) 0 % (0-2); EOSINOPHILS % (MANUAL) 0 % (0-6); LYMPHOCYTES % (MANUAL) 5 % (13-45); MONOCYTES % (MANUAL) 5 % (3-13); SEGMENTED NEUTROPHILS % (MAN) 88 % (42-78); TOTAL CELLS COUNTED 100
[2019-09-16 11:55] LABS: RBC MORPHOLOGY COMMENT NORMO-CYTIC/CHROMIC
--- NOTE | 2019-09-16 11:56 | ER Document Report ---
Entered by MIKEY RAM SCRIBE 09/16/19 1025 Acting as scribe for:ACOSTA POSEY MD ED Respiratory Problem - General Chief Complaint: Cough Stated Complaint: COUGH Time Seen by Provider: 09/16/19 10:20 Information source: Patient Notes: This 58 year old female patient presents to the emergency room complaining of left-sided chest pain. Her history is significant for a mass being found in her left hilar chest in [place] back in April 2019, she reports this mass was biopsied and the biopsy was negative. She was seen here on 08/11/2019 complaining of COPD exacerbation, was treated for this and recommended to follow-up for the mass. She never did follow-up. She came to the emergency room here on 09/04/2019 complaining of left-sided chest pain, after a 6-hour wait in the [facility], she left and went down to [facility]. She states she was admitted from 09/03 through 09/08/2019. At that time she had a CT showing the known mass, and a pulmonary embolus. She was discharged on Xarelto. She was also discharged on oxygen 2 L nasal cannula after she was walked in the hallways and her room air pulse ox dropped to 83%. She was also discharged with Percocet 5 mg tablets that she reports taking about once daily, and took her last tablet this morning. She uses Symbicort twice daily, Atrovent nebs twice daily, and albuterol nebs every 4 hours as needed. She is also using Lidoderm patch. She reports she saw Dr. Rowe on 09/10/2019, and he wanted to get a CT-guided biopsy done, but she is currently uninsured and waiting for her Medicaid approval to come through. She frequently refers to the "[employer]". She reports that she quit smoking on the day she was admitted to [facility] on 09/04/2019, except for 2 cigarettes she smoked on her way home from the hospital on her discharge day. After getting the history and doing the physical exam, I suspect this visit is more related to pain management and not to any particularly worsening in her symptoms. She will be worked up for her chest pain, and check a d-dimer to have a baseline on Xarelto, as she will most likely continue to come to the emergency room with issues related to her lung cancer and pulmonary embolus. TRAVEL OUTSIDE OF THE [place] IN LAST 30 DAYS: No - Related Data Allergies/Adverse Reactions: No Known Allergies Allergy (Verified 09/16/17 08:30) Past Medical History - General Information source: Patient, [facility] Records, Outside Facility Records - Social History Smoking Status: Former Smoker - quit September 2019 Cigarette use (# per day): No Frequency of alcohol use: None Drug Abuse: None Family History: Reviewed & Not Pertinent, Malignancy - Breast cancer mother Pulmonary Medical History: Reports: Hx Asthma, Hx COPD Past Surgical History: Reports: Hx Section - Immunizations Hx Diphtheria, Pertussis, Tetanus Vaccination: Yes Review of Systems - Review of Systems Constitutional: No symptoms reported EENT: No symptoms reported Cardiovascular: See HPI, Chest pain - "left lung pain" Respiratory: No symptoms reported Gastrointestinal: No symptoms reported Genitourinary: No symptoms reported Female Genitourinary: No symptoms reported Musculoskeletal: No symptoms reported Skin: No symptoms reported Hematologic/Lymphatic: No symptoms reported Neurological/Psychological: No symptoms reported -: Yes All other systems reviewed and negative Physical Exam - Vital signs Vitals: Temp Pulse Resp BP Pulse Ox 98.7 F 113 H 25 H 121/73 98 09/16/19 10:24 09/16/19 10:24 09/16/19 10:24 09/16/19 10:24 09/16/19 10:24 - Notes Notes: Physical Exam: General: Alert, appears much older than stated age. HEENT: Normocephalic. Atraumatic. PERRL. Extraocular movements intact. Oropharynx clear. Neck: Supple. Non-tender. Respiratory: On 2L oxygen via nasal cannula. Mildly tachypneic. Wheezing and rhonchi with forced cough bilaterally. Cardiovascular: Mildly tachycardic, regular rhythm. Abdominal: Normal Inspection. Non-tender. No distension. Normal Bowel Sounds. Back: No gross abnormalities. Extremities: Moves all four extremities. Upper extremities: Normal inspection. Normal ROM. Lower extremities: Normal inspection. No edema. Normal ROM. Neurological: Normal cognition. AAOx4. Normal speech. Psychological: Normal affect. Normal Mood. Skin: Warm. Dry. Normal color. Course - Vital Signs Vital signs: Temp Pulse Resp BP Pulse Ox 98.7 F 113 H 25 H 121/73 98 09/16/19 10:58 09/16/19 10:24 09/16/19 10:24 09/16/19 10:24 09/16/19 10:24 - Laboratory Result Diagrams: 09/16/19 10:47 09/16/19 10:47 Laboratory results interpreted by me: 09/16/19 09/16/19 09/16/19 10:47 10:47 10:47 WBC 19.2 H RBC 3.70 L Hgb 11.9 L Hct 33.6 L Plt Count 572 H Seg Neuts % (Manual) 88 H Band Neutrophils % 2 L Lymphocytes % (Manual) 5 L Abs Neuts (Manual) 17.3 H D-Dimer 2.08 H Sodium 129.3 L Chloride 91 L Creatinine 0.37 L Glucose 175 H Alkaline Phosphatase 160 H Albumin 3.4 L - Diagnostic Test Radiology reviewed: Image reviewed, Reports reviewed - Chest x-ray shows persistent left hilar mass like opacity with increased left midlung airspace disease compared to 08/11/2019. This is most likely postobstructive atelectasis or pneumonia. - EKG Interpretation by Me EKG shows normal: Sinus rhythm, [place], Intervals, QRS Complexes, ST-T Waves Rate: Tachycardia - 103 P Waves: LAE - Consults Dr. Macias Time consulted: 13:28 Consulted provider: will come to ER Discharge - Discharge Clinical Impression: Postobstructive pneumonia, Mass of hilum Leukocytosis Qualifiers: Leukocytosis type: bandemia Qualified Code(s): D72.825 - Bandemia COPD (chronic obstructive pulmonary disease) with emphysema Qualifiers: Emphysema type: unspecified Qualified Code(s): J43.9 - Emphysema, unspecified Condition: Stable Disposition: ADMITTED INPATIENT Admitting Provider: Gilberto (Hospitalist) Unit Admitted: Medical Floor I personally performed the services described in the documentation, reviewed and edited the documentation which was dictated to the scribe in my presence, and it accurately records my words and actions.
[2019-09-16 11:57] LABS: PLATELET COMMENT INCREASED
[2019-09-16] MEDS ORDERED: LEVOFLOXACIN 500 MG/D5W RTU 500 MG/100 ML RTUPB IV ONE (12:30)
--- NOTE | 2019-09-16 14:49 | PDOC H&P ---
History of Present Illness Admission Date/PCP: 09/16/19 14:34 Patient complains of: Productive cough. Recent pulmonary embolus. Left lung mass History of Present Illness: LUCIANA RAMIREZ is a 58 year old female discharged from [facility] [place] 8 days ago. At that time she had a diagnosis of new pulmonary embolus. She has been undergoing ongoing work-up for a new left lung mass. She is seeing Dr. Rowe and has a primary care provider out of the [facility]. Yesterday she coughed up a large amount of brown mucus. Unsure if there was old blood or just infection. Her white count is elevated. X-ray suggests a postobstructive pneumonia. Since she was just hospitalized last week and was also be considered a hospital-acquired pneumonia. She was recently started on Xarelto for her pulmonary embolus. She is scheduled for CT-guided biopsy of the left lung mass however with an active infection this will not be accomplished anytime soon and she will need to be off the blood thinners for 4 to 5 days prior to an invasive procedure. She reports that her appetite has been down. She will be admitted for IV antibiotics with IV fluids. She has been losing weight and so we will add Ensure to her meals. She does have hyperglycemia without a history of diabetes. We will check a hemoglobin A1c. Past Medical History Cardiac Medical History: Denies: Coronary Artery Disease, Myocardial Infarction, Hypertension Pulmonary Medical History: Reports: Asthma, Chronic Obstructive Pulmonary Disease (COPD), Other - Lung mass, pulmonary embolus Denies: Bronchitis, Pneumonia Neurological Medical History: Denies: Seizures Endocrine Medical History: Denies: Diabetes Mellitus Type 2 Renal/ Medical History: Denies: Chronic Kidney Disease Malignancy Medical History: Reports: Other - Lung mass suspected neoplasm Musculoskeltal Medical History: Denies: Arthritis Psychiatric Medical History: Reports: Alcohol Dependency, Tobacco Dependency Hematology: Denies: Anemia Past Surgical History Past Surgical History: Reports: Section Denies: Hysterectomy, Pacemaker Social History Lives with: Spouse/Significant other Smoking Status: Former Smoker - quit September 2019 Electronic Cigarette use?: No Frequency of Alcohol Use: None - History of heavy alcohol use Hx Recreational Drug Use: No Hx Prescription Drug Abuse: No - Advance Directive Resuscitation Status: Full Code Family History Family History: Malignancy - Breast cancer mother Parental Family History Reviewed: Yes Children Family History Reviewed: Yes Sibling(s) Family History Reviewed.: Yes Medication/Allergy Home Medications: Albuterol Sulfate [Ventolin 0.083% Neb 2.5 mg/3 ml Ampul] 1 vial NEB Q4HP PRN 09/16/19 Budesonide/Formoterol Fumarate [Symbicort HFA 160-4.5 mcg Inhaler 6 gm] 2 puff IH Q12 09/16/19 Fluoxetine HCl 20 mg PO QHS 09/16/19 Ipratropium [place] [Atrovent 0.02% Neb 0.5 mg/2.5 ml Ampul] 0.5 mg NEB BID 09/16/19 Lidocaine [Lidoderm 5% (700 mg) Transdermal Patch] 1 patch TP DAILY 09/16/19 Oxycodone HCl/Acetaminophen [Percocet 5-325 mg Tablet] 1 tab PO Q6HP PRN 09/16/19 Rivaroxaban [Xarelto 10 mg Tablet] 20 mg PO WSUPPER MDD START 09-28-19 09/16/19 Rivaroxaban [Xarelto 15 mg Tablet] 15 mg PO BID MDD LAST DOSE TO BE TAKEN 09-27-19 09/16/19 Allergies/Adverse Reactions: No Known Allergies Allergy (Verified 09/16/17 08:30) Review of Systems All systems: reviewed and no additional remarkable complaints except as stated Respiratory: PRESENT: cough, dyspnea, sputum Gastrointestinal: PRESENT: diarrhea - 2 days ago. Self-limited. Physical Exam Vital Signs: Temp Pulse Resp BP Pulse Ox 98.7 F 113 H 25 H 121/73 98 09/16/19 10:58 09/16/19 10:24 09/16/19 10:24 09/16/19 10:24 09/16/19 10:24 Intake & Output 09/15/19 09/16/19 09/17/19 06:59 06:59 06:59 Intake Total 100 Balance 100 Weight 43.998 kg General appearance: PRESENT: no acute distress, cooperative, thin Head exam: PRESENT: atraumatic, normocephalic Eye exam: PRESENT: conjunctiva pink. ABSENT: scleral icterus Ear exam: PRESENT: normal external ear exam. ABSENT: bleeding, drainage Mouth exam: PRESENT: dry mucosa, tongue midline Teeth exam: ABSENT: poor dentation Neck exam: PRESENT: full ROM. ABSENT: carotid bruit, JVD, lymphadenopathy Respiratory exam: PRESENT: rhonchi - Faint rhonchi on the left. Breath sounds are less audible on the left as well., symmetrical, unlabored. ABSENT: accessory muscle use, tachypnea, wheezes Cardiovascular exam: PRESENT: RRR, +S1, +S2. ABSENT: diastolic murmur, irregular rhythm, systolic murmur GI/Abdominal exam: PRESENT: normal bowel sounds, soft. ABSENT: distended, guarding, tenderness Rectal exam: PRESENT: deferred Gentrourinary exam: ABSENT: indwelling catheter Extremities exam: ABSENT: calf tenderness, joint swelling, pedal edema Musculoskeletal exam: PRESENT: ambulatory, normal inspection. ABSENT: deformity Neurological exam: PRESENT: alert, awake, oriented to person, oriented to place, oriented to time, oriented to situation, CN II-XII grossly intact. ABSENT: altered, motor sensory deficit Psychiatric exam: PRESENT: flat affect. ABSENT: agitated, anxious Focused psych exam: ABSENT: delusional, paranoid, restlessness Skin exam: PRESENT: dry, normal color, warm. ABSENT: rash Results Laboratory Results: 09/16/19 10:47 09/16/19 10:47 09/16/19 09/16/19 10:47 10:47 WBC 19.2 H RBC 3.70 L Hgb 11.9 L Hct 33.6 L MCV 91 MCH 32.2 MCHC 35.4 RDW 12.8 Plt Count 572 H Seg Neutrophils % Not Reportable Sodium 129.3 L Potassium 4.9 Chloride 91 L Carbon Dioxide 29 Anion Gap 9 BUN 9 Creatinine 0.37 L Est GFR ( Amer) > 60 Glucose 175 H Calcium 9.2 Total Bilirubin 0.5 AST 36 Alkaline Phosphatase 160 H Total Protein 6.7 Albumin 3.4 L 09/16/19 09/16/19 10:47 10:47 Creatine Kinase 31 Troponin I < 0.012 Impressions: Chest X-Ray 09/16/19 00:00 IMPRESSION: Persistent left perihilar mass like opacity with increased left mid lung airspace disease, likely postobstructive atelectasis or pneumonia. CT warranted for further characterization if not previously performed. Assessment and Plan - Diagnosis (1) Postobstructive pneumonia Is this a current diagnosis for this admission?: Yes Plan: 09/16/2019 The patient has been seen by pulmonology and is being worked up for a left hilar mass. This is likely a postobstructive pneumonia. Her white count is 19,000. She was started on levofloxacin. If the infection does not seem to be responding to levofloxacin I will expand coverage with likely vancomycin and cefepime as she was recently hospitalized for 5 days in [place]. The patient is currently on room air. Will monitor for increased oxygen requirement supply if needed. Guaifenesin has also been added. (2) Mass of hilum Is this a current diagnosis for this admission?: Yes Plan: 09/16/2019 I believe the patient had a bronchoscopy and the biopsy was negative for maligna ncy however a CT-guided percutaneous biopsy is planned. Certainly this will not occur with active infection and the patient will have to be off of anticoagulation therapy for 4 to 5 days and so this will need to happen as an outpatient. (3) Leukocytosis Qualifiers: Leukocytosis type: bandemia Qualified Code(s): D72.825 - Bandemia Is this a current diagnosis for this admission?: Yes Plan: 09/16/2019 White blood cell count is 19,000. This is secondary to pneumonia. Antibiotics initiated. Will monitor closely. (4) COPD (chronic obstructive pulmonary disease) with emphysema Qualifiers: Emphysema type: unspecified Qualified Code(s): J43.9 - Emphysema, unspecified Is this a current diagnosis for this admission?: Yes Plan: 09/16/2019 The patient has on inhaler therapy at home. I have ordered scheduled duo nebs and as needed albuterol. As we do not carry the Symbicort will consider adding Brio Ellipta on a daily basis. (5) Pulmonary embolus, left Is this a current diagnosis for this admission?: Yes Plan: 09/16/2019 History of pulmonary embolus diagnosed in [facility] [place] last week. Continue Xarelto. (6) Chronic anticoagulation Is this a current diagnosis for this admission?: Yes Plan: 09/16/2019 On Xarelto for recently diagnosed pulmonary embolus - Time Time Spent with patient: 35 or more minutes Smoking Cessation Education: 3 to 10 minutes Medications reviewed and adjusted accordingly: Yes Anticipated discharge: Home - Inpatient Certification Based on my medical assessment, after consideration of the patient's comorbidities, presenting symptoms, or acuity I expect that the services needed warrant INPATIENT care.: Yes I certify that my determination is in accordance with my understanding of Medicare's requirements for reasonable and necessary INPATIENT services [42 CFR 412.3e].: Yes Medical Necessity: Need Close Monitoring Due to Risk of Patient Decompensation, Need For IV Fluids, Need for Pain Control, Need for IV Antibiotics Post Hospital Care: D/C Shop Repairer Documentation
[2019-09-16] MEDS ORDERED: PROMETHAZINE HCL INJ 25 MG/1 ML VIAL IV PRN (14:55)
[2019-09-16] MEDS ORDERED: ACETAMINOPHEN 325 MG TABLET PO PRN (14:55)
[2019-09-16] MEDS ORDERED: ALBUTEROL SULFATE 0.083% NEB 2.5 MG/3 ML AMPUL NEB PRN (14:55)
[2019-09-16] MEDS ORDERED: MAGNESIUM HYDROXIDE SUSP 30 ML UDCUP PO PRN (14:55)
[2019-09-16] MEDS ORDERED: NORMAL SALINE 1000 ML 1,000 ML IV PRN (14:55)
[2019-09-16] MEDS ORDERED: MAG HYDROX/AL HYDROX/SIMETH SUSP 30 ML UDCUP PO PRN (14:55)
[2019-09-16] MEDS: IPRATROPIUM/ALBUTEROL 0.5-2.5 MG/3 ML AMPUL NEB SCH (16:14)
--- NOTE | 2019-09-16 16:21 | EKG REPORT ---
SEVERITY:- ABNORMAL ECG - SINUS TACHYCARDIA PROBABLE LEFT ATRIAL ABNORMALITY PROBABLE LEFT VENTRICULAR HYPERTROPHY : Confirmed by: Catracho Colbert MD 16-Sep-2019 16:20:10
[2019-09-16] MEDS: DOCUSATE SODIUM 100 MG CAPSULE PO SCH (17:07)
[2019-09-16] MEDS: OXYCODONE-ACETAMINOPHEN 5-325 MG TABLET PO PRN (19:19)
[2019-09-16] MEDS ORDERED: VANCOMYCIN HCL 0 MG in DEXTROSE 5%-WATER 250 ML IV NR (20:15)
[2019-09-16] MEDS: GUAIFENESIN 600 MG TABLET.SA PO SCH (21:19)
[2019-09-16] MEDS: CEFEPIME 1 GM/D5W RTU 1 GM/50 ML RTUPB IV SCH (21:19)
[2019-09-16] MEDS: FLUOXETINE HCL 20 MG CAPSULE PO SCH (21:19)
[2019-09-16] MEDS: VANCOMYCIN HCL 500 MG in DEXTROSE 5%-WATER 100 ML IV SCH (21:20)
[2019-09-17] MEDS: OXYCODONE-ACETAMINOPHEN 5-325 MG TABLET PO PRN ×4 (00:09→22:03)
[2019-09-17] MEDS: IPRATROPIUM/ALBUTEROL 0.5-2.5 MG/3 ML AMPUL NEB SCH ×3 (00:10→15:49)
[2019-09-17] MEDS: VANCOMYCIN HCL 500 MG in DEXTROSE 5%-WATER 100 ML IV SCH ×3 (05:21→22:11)
[2019-09-17] MEDS: NORMAL SALINE 1000 ML 1,000 ML IV PRN ×2 (05:21→22:06)
[2019-09-17 06:31] LABS: ABSOLUTE BASOPHILS # (AUTO) 0.1 10^3/uL (0.0-0.2); ABSOLUTE EOSINOPHILS # (AUTO) 0.2 10^3/uL (0.0-0.6); ABSOLUTE LYMPHOCYTES (AUTO) 2.1 10^3/uL (0.5-4.7); ABSOLUTE MONOCYTES (AUTO) 0.9 10^3/uL (0.1-1.4); BASOPHILS % (AUTO) 1.1 % (0-2); EOSINOPHILS % (AUTO) 1.3 % (0-6); HEMATOCRIT 34.3 % (36.0-47.0); HEMOGLOBIN 11.6 g/dL (12.0-15.5); LYMPHOCYTES % (AUTO) 16.9 % (13-45); MEAN CORPUSCULAR HEMOGLOBIN 31.1 pg (27.0-33.4); MEAN CORPUSCULAR VOLUME 91 fl (80-97); PLATELET COUNT 652 10^3/uL (150-450); RED BLOOD COUNT 3.75 10^6/uL (3.72-5.28); RED CELL DISTRIBUTION WIDTH 12.7 % (11.5-14.0); SEGMENTED NEUTROPHILS % (AUTO) 73.7 % (42-78); TOTAL CELLS COUNTED % (AUTO) 100 %; WHITE BLOOD COUNT 12.2 10^3/uL (4.0-10.5)
[2019-09-17 06:49] LABS: ANION GAP 8 (5-19); BLOOD UREA NITROGEN 8 mg/dL (7-20); CALCIUM 8.8 mg/dL (8.4-10.2); CARBON DIOXIDE 30 mmol/L (22-30); CHLORIDE 93 mmol/L (98-107); POTASSIUM 5.1 mmol/L (3.6-5.0)
[2019-09-17 06:50] LABS: GLUCOSE 99 mg/dL (75-110)
[2019-09-17] MEDS ORDERED: LEVOFLOXACIN 500 MG/D5W RTU 500 MG/100 ML RTUPB IV SCH (10:00)
[2019-09-17] MEDS: CEFEPIME 1 GM/D5W RTU 1 GM/50 ML RTUPB IV SCH ×2 (10:40→22:02)
[2019-09-17] MEDS: GUAIFENESIN 600 MG TABLET.SA PO SCH ×2 (10:41→22:03)
[2019-09-17] MEDS: RIVAROXABAN 15 MG TABLET PO SCH ×2 (10:41→18:34)
[2019-09-17] MEDS: LIDOCAINE 5% (700 MG) TRANSDERMAL ADH..PATCH TP SCH (10:41)
[2019-09-17] MEDS: DOCUSATE SODIUM 100 MG CAPSULE PO SCH ×2 (10:41→18:35)
--- NOTE | 2019-09-17 13:29 | PDOC PROGRESS REPORT ---
Subjective Progress Note for:: 09/17/19 Subjective:: Still gets discomfort in her back on the left side periodically. Potassium is just above the normal limit today. Her appetite has been good. She still coughs up thick mucus intermittently. Reason For Visit: POSTOBSTRUCTIVE PNEUMONIA,LEFT LUNG MASS,RECENT Physical Exam Vital Signs: Temp Pulse Resp BP Pulse Ox 97.7 F 91 18 103/57 L 95 09/17/19 07:51 09/17/19 08:34 09/17/19 08:34 09/17/19 07:51 09/17/19 08:34 Intake & Output 09/16/19 09/17/19 09/18/19 06:59 06:59 06:59 Intake Total 1074 Balance 1074 Weight 46.7 kg General appearance: PRESENT: no acute distress, cooperative, well-developed Eye exam: PRESENT: conjunctiva pink. ABSENT: scleral icterus Ear exam: PRESENT: normal external ear exam. ABSENT: bleeding, drainage Respiratory exam: PRESENT: decreased breath sounds - On the left, symmetrical, unlabored, wheezes - Faint wheeze left base., other - Breath sounds are tight on the left. Noticeably less air movement than left upper and right lung.. ABSENT: rales, rhonchi Cardiovascular exam: PRESENT: RRR, +S1, +S2. ABSENT: diastolic murmur, irregular rhythm, systolic murmur GI/Abdominal exam: PRESENT: normal bowel sounds, soft. ABSENT: distended, guarding, tenderness Rectal exam: PRESENT: deferred Gentrourinary exam: ABSENT: indwelling catheter Extremities exam: ABSENT: pedal edema Musculoskeletal exam: PRESENT: ambulatory, normal inspection Neurological exam: PRESENT: alert, awake, oriented to person, oriented to place, oriented to time, oriented to situation, CN II-XII grossly intact. ABSENT: altered Psychiatric exam: PRESENT: appropriate affect. ABSENT: agitated, anxious Focused psych exam: ABSENT: delusional, paranoid, restlessness Skin exam: PRESENT: dry, normal color, warm. ABSENT: rash Results Laboratory Results: 09/17/19 06:00 09/17/19 06:00 09/17/19 09/17/19 06:00 06:00 WBC 12.2 H RBC 3.75 Hgb 11.6 L Hct 34.3 L MCV 91 MCH 31.1 MCHC 34.0 RDW 12.7 Plt Count 652 H Seg Neutrophils % 73.7 Sodium 130.7 L Potassium 5.1 H Chloride 93 L Carbon Dioxide 30 Anion Gap 8 BUN 8 Creatinine 0.38 L Est GFR ( Amer) > 60 Glucose 99 Calcium 8.8 Magnesium 2.0 09/16/19 09/16/19 10:47 10:47 Creatine Kinase 31 Troponin I < 0.012 Impressions: Chest X-Ray 09/16/19 00:00 IMPRESSION: Persistent left perihilar mass like opacity with increased left mid lung airspace disease, likely postobstructive atelectasis or pneumonia. CT warranted for further characterization if not previously performed. Assessment and Plan - Diagnosis (1) Pulmonary abscess Qualifiers: Pulmonary abscess pneumonia presence: with pneumonia Laterality: left Lung location: lower lobe of lung Qualified Code(s): J85.1 - Abscess of lung with pneumonia Is this a current diagnosis for this admission?: Yes Plan: 09/17/2019-because of the patient's worsening left-sided discomfort and changes breath sounds I obtained a CT scan of the chest. The patient has a 4 cm cavitary lesion with air-fluid level. There is also dense consolidation. She h as multiple abnormal lymph nodes. Her white blood cell count did improve on vancomycin and cefepime. I will continue this current regimen. I will ask her mill supervisor to review the case consult. She now has Dilaudid available for pain. We may need to refer her to a thoracic surgeon. (2) Postobstructive pneumonia Is this a current diagnosis for this admission?: Yes Plan: 09/16/2019 The patient has been seen by pulmonology and is being worked up for a left hilar mass. This is likely a postobstructive pneumonia. Her white count is 19,000. She was started on levofloxacin. If the infection does not seem to be responding to levofloxacin I will expand coverage with likely vancomycin and cefepime as she was recently hospitalized for 5 days in [place]. The patient is currently on room air. Will monitor for increased oxygen requirement supply if needed. Guaifenesin has also been added. 09/17/2019 Significant lymphadenopathy as noted above. White blood cell count improved on Cefepime and vancomycin. We will continue to monitor closely. PPD has been ordered. AFB smears have been ordered as well as a standard sputum Gram stain and culture. (3) Mass of hilum Is this a current diagnosis for this admission?: Yes Plan: 09/16/2019 I believe the patient had a bronchoscopy and the biopsy was negative for malignancy however a CT-guided percutaneous biopsy is planned. Certainly this will not occur with active infection and the patient will have to be off of anticoagulation therapy for 4 to 5 days and so this will need to happen as an outpatient. 09/17/2019 More significant adenopathy than previously expected. Complicated with what appears to be postobstructive pneumonia and cavitary lesion. Continue current antibiotics at this time. (4) Leukocytosis Qualifiers: Leukocytosis type: bandemia Qualified Code(s): D72.825 - Bandemia Is this a current diagnosis for this admission?: Yes Plan: 09/16/2019 White blood cell count is 19,000. This is secondary to pneumonia. Antibiotics initiated. Will monitor closely. 09/17/2019 Down to 12,000. Continue vancomycin and cefepime (5) COPD (chronic obstructive pulmonary disease) with emphysema Qualifiers: Emphysema type: unspecified Qualified Code(s): J43.9 - Emphysema, unspecified Is this a current diagnosis for this admission?: Yes Plan: 09/16/2019 The patient has on inhaler therapy at home. I have ordered scheduled duo nebs and as needed albuterol. As we do not carry the Symbicort will consider adding Brio Ellipta on a daily basis. 09/17/2019 Continue nebulizer treatments at this time (6) Pulmonary embolus, left Is this a current diagnosis for this admission?: Yes Plan: 09/16/2019 History of pulmonary embolus diagnosed in [facility] last week. Continue Xarelto. 09/17/2019 Continue Xarelto. Hypercoagulable state does raise the question of malignancy. (7) Chronic anticoagulation Is this a current diagnosis for this admission?: Yes Plan: 09/16/2019 On Xarelto for recently diagnosed pulmonary embolus 09/17/2019 No change (8) Cigarette nicotine dependence Qualifiers: Substance use status: uncomplicated Qualified Code(s): F17.210 - Nicotine dependence, cigarettes, uncomplicated Is this a current diagnosis for this admission?: Yes Plan: 09/17/2019 Nicotine patch - Time Time Spent with patient: 15-24 minutes Medications reviewed and adjusted accordingly: Yes
[2019-09-17] MEDS ORDERED: RIVAROXABAN 10 MG TABLET PO SCH (17:00)
[2019-09-17] MEDS: HYDROMORPHONE HCL INJ/PF 2 MG/ML AMPULE IV PRN (18:35)
--- NOTE | 2019-09-17 18:50 | RADIOLOGY REPORT (SQ) ---
EXAM DESCRIPTION: CT CHEST WITH IMAGES COMPLETED DATE/TIME: 09/17/2019 6:18 pm REASON FOR STUDY: inc dyspnea, inc pain, possible hemoptysis COMPARISON: AP chest 09/16/2019 TECHNIQUE: CT scan of the chest performed using helical scanning technique with dynamic intravenous contrast injection. Images reviewed with lung, soft tissue and bone windows. Reconstructed coronal and sagittal MPR and MIP images reviewed. All images stored on PACS. All CT scanners at this facility use dose modulation, iterative reconstruction, and/or weight based d osing when appropriate to reduce radiation dose to as low as reasonably achievable (ALARA). [facility]: Dose Right [facility]: CareDose [facility]: Dose Right [facility]: Teradose 4D [facility]: [employer] CONTRAST TYPE AND DOSE: 80 mL of IV Omnipaque 350- low osmolar. RENAL FUNCTION: Creatinine 0.38 RADIATION DOSE: CT Rad equipment meets quality standard of care and radiation dose reduction techniq ues were employed. CTDIvol: 4.8 mGy. DLP: 195 mGy-cm. . LIMITATIONS: None. FINDINGS: LUNGS AND PLEURA: Lungs are hyperinflated and hyperlucent from obstructive disease. Dense consolidation is present in the superior segment left lower lobe with cavitation and air-fluid level. Fluid-filled cavity 4 x 2 cm on axial image 35. This could be due to necrotizing pneumonia. SUKI or tuberculosis could mimic this appearance. Cavitary neoplasm could cause this appearance No pleural effusion. No pneumothorax. HILAR AND MEDIASTINAL STRUCTURES: 1.5 x 1.2 cm prevascular lymph node axial image 16, 1.3 x 1.1 cm pr evascular lymph node axial image 17 with mild mass effect on the left brachiocephalic vein. Conglomerate mass of adenopathy 4.2 x 3.5 cm in the AP window 2.7 x 2 cm left hilar lymph node axial image 31 3.3 x 2.5 cm left hilar lymph node axial image 34 HEART AND VASCULAR STRUCTURES: No aneurysm or dissection. No central pulmonary emboli. No pericardi al effusion. HARDWARE: None in the chest. UPPER ABDOMEN: No significant findings. Limited exam. THYROID AND OTHER SOFT TISSUES: No masses. No adenopathy. BONES: No significant finding. OTHER: Findings discussed with Dr. Macias IMPRESSION: Cavitary infiltrate in the left superior segment lower lobe with bulky mediastinal adeno dmitry. Differential is malignancy versus necrotizing pneumonia versus tuberculosis TECHNICAL DOCUMENTATION: JOB ID: [id number] Quality ID # [id number]: Final reports with documentation of one or more dose reduction techniques (e.g., Au tomated exposure control, adjustment of the mA and/or kV according to patient size, use of iterative reconstruction technique) 2010 [employer]- All Rights Reserved Reading location - IP/workstation name: [id number]
[2019-09-17] MEDS ORDERED: TUBERCULIN,PURIF.PROT.DERIV. 5 TU/0.1 ML TEST 1 ML VIAL ID ONE (22:00)
[2019-09-17] MEDS: FLUOXETINE HCL 20 MG CAPSULE PO SCH (22:03)
[2019-09-18] MEDS: IPRATROPIUM/ALBUTEROL 0.5-2.5 MG/3 ML AMPUL NEB SCH ×3 (01:51→16:10)
[2019-09-18] MEDS: VANCOMYCIN HCL 500 MG in DEXTROSE 5%-WATER 100 ML IV SCH (06:05)
[2019-09-18 06:30] LABS: ABSOLUTE BASOPHILS # (AUTO) 0.1 10^3/uL (0.0-0.2); ABSOLUTE EOSINOPHILS # (AUTO) 0.2 10^3/uL (0.0-0.6); ABSOLUTE LYMPHOCYTES (AUTO) 1.2 10^3/uL (0.5-4.7); ABSOLUTE MONOCYTES (AUTO) 0.7 10^3/uL (0.1-1.4); ABSOLUTE NEUT (AUTO) 6.6 10^3/uL (1.7-8.2); BASOPHILS % (AUTO) 0.9 % (0-2); EOSINOPHILS % (AUTO) 1.9 % (0-6); HEMATOCRIT 31.1 % (36.0-47.0); HEMOGLOBIN 10.8 g/dL (12.0-15.5); LYMPHOCYTES % (AUTO) 13.8 % (13-45); MEAN CORPUSCULAR HEMOGLOBIN 31.4 pg (27.0-33.4); MEAN CORPUSCULAR HGB CONC 34.5 g/dL (32.0-36.0); MEAN CORPUSCULAR VOLUME 91 fl (80-97); MONOCYTES % (AUTO) 7.9 % (3-13); PLATELET COUNT 626 10^3/uL (150-450); RED BLOOD COUNT 3.42 10^6/uL (3.72-5.28); RED CELL DISTRIBUTION WIDTH 12.7 % (11.5-14.0); SEGMENTED NEUTROPHILS % (AUTO) 75.5 % (42-78); TOTAL CELLS COUNTED % (AUTO) 100 %; WHITE BLOOD COUNT 8.8 10^3/uL (4.0-10.5)
[2019-09-18 06:48] LABS: ALBUMIN 2.8 g/dL (3.5-5.0); ALKALINE PHOSPHATASE 136 U/L (38-126); ANION GAP 5 (5-19); ASPARTATE AMINO TRANSFERASE 25 U/L (14-36); BILIRUBIN,TOTAL 0.3 mg/dL (0.2-1.3); BLOOD UREA NITROGEN 7 mg/dL (7-20); CALCIUM 8.7 mg/dL (8.4-10.2); CARBON DIOXIDE 32 mmol/L (22-30); CHLORIDE 97 mmol/L (98-107); GLUCOSE 84 mg/dL (75-110); POTASSIUM 4.8 mmol/L (3.6-5.0); TOTAL PROTEIN 5.8 g/dL (6.3-8.2)
[2019-09-18 06:52] LABS: VANCOMYCIN,TROUGH < 5.0 ug/mL (5.0-20.0)
[2019-09-18] MEDS: GUAIFENESIN 600 MG TABLET.SA PO SCH ×2 (11:20→22:16)
[2019-09-18] MEDS: DOCUSATE SODIUM 100 MG CAPSULE PO SCH ×2 (11:20→20:11)
[2019-09-18] MEDS: CEFEPIME 1 GM/D5W RTU 1 GM/50 ML RTUPB IV SCH ×2 (11:20→22:15)
[2019-09-18] MEDS: OXYCODONE-ACETAMINOPHEN 5-325 MG TABLET PO PRN ×2 (14:21→20:11)
[2019-09-18] MEDS: NORMAL SALINE 1000 ML 1,000 ML IV PRN ×2 (14:25→21:10)
[2019-09-18] MEDS: LIDOCAINE 5% (700 MG) TRANSDERMAL ADH..PATCH TP SCH (14:30)
[2019-09-18] MEDS: RIVAROXABAN 15 MG TABLET PO SCH ×2 (14:42→20:11)
[2019-09-18] MEDS: VANCOMYCIN HCL 1,250 MG in DEXTROSE 5%-WATER 250 ML IV SCH ×2 (15:11→22:16)
--- NOTE | 2019-09-18 19:03 | PDOC PROGRESS REPORT ---
Subjective Progress Note for:: 09/18/19 Subjective:: Patient denies any fever or chills today. Still having cough. Denies nausea or vomiting. Reason For Visit: POSTOBSTRUCTIVE PNEUMONIA,LEFT LUNG MASS,RECENT Physical Exam Vital Signs: Temp Pulse Resp BP Pulse Ox 98.2 F 91 16 105/67 97 09/18/19 12:20 09/18/19 16:12 09/18/19 16:12 09/18/19 12:20 09/18/19 16:12 Intake & Output 09/17/19 09/18/19 09/19/19 06:59 06:59 06:59 Intake Total 1074 3280 Balance 1074 3280 Weight 46.7 kg 51.4 kg General appearance: PRESENT: no acute distress, cooperative Neck exam: ABSENT: JVD Respiratory exam: PRESENT: crackles, unlabored, wheezes. ABSENT: tachypnea Cardiovascular exam: PRESENT: RRR, +S1, +S2. ABSENT: tachycardia GI/Abdominal exam: PRESENT: soft. ABSENT: rebound, rigid, tenderness Neurological exam: PRESENT: alert, awake, oriented to person, oriented to place, oriented to time Results Laboratory Results: 09/18/19 05:45 09/18/19 05:45 09/18/19 09/18/19 05:45 05:45 WBC 8.8 RBC 3.42 L Hgb 10.8 L Hct 31.1 L MCV 91 MCH 31.4 MCHC 34.5 RDW 12.7 Plt Count 626 H Seg Neutrophils % 75.5 Sodium 133.6 L Potassium 4.8 Chloride 97 L Carbon Dioxide 32 H Anion Gap 5 BUN 7 Creatinine 0.39 L Est GFR ( Amer) > 60 Glucose 84 Calcium 8.7 Magnesium 2.1 Total Bilirubin 0.3 AST 25 Alkaline Phosphatase 136 H Total Protein 5.8 L Albumin 2.8 L 09/18/19 09:00 Sputum AFB Susceptibility Slow Grower - Final Not Reportable 09/18/19 09:00 Sputum AFB Susceptibility Slow Grower - Final Not Reportable 09/18/19 09:00 Sputum AFB Susceptibility Slow Grower - Final Not Reportable 09/18/19 09:00 Sputum Microbiology Comment - Final Not Reportable 09/18/19 09:00 Sputum Nocardia Susceptibility - Final Not Reportable 09/18/19 09:00 Sputum Nocardia Susceptibility - Final ADOBE MAKER 09/18/19 09:00 Sputum Nocardia Susceptibility - Final Not Reportable 09/18/19 09:00 Sputum Nocardia Susceptibility - Final Not Reportable 09/18/19 09:00 Sputum Nocardia Susceptibility - Final Not Reportable 09/18/19 09:00 Sputum Nocardia Susceptibility - Final Not Reportable 09/18/19 09:00 Sputum Nocardia Susceptibility - Final Not Reportable 09/18/19 09:00 Sputum Nocardia Susceptibility - Final Not Reportable 09/18/19 09:00 Sputum Nocardia Susceptibility - Final Not Reportable 09/18/19 09:00 Sputum Nocardia Susceptibility - Final Not Reportable 09/18/19 09:00 Sputum Microbiology Comment - Final Not Reportable 09/16/19 09/16/19 10:47 10:47 Creatine Kinase 31 Troponin I < 0.012 Impressions: Chest X-Ray 09/16/19 00:00 IMPRESSION: Persistent left perihilar mass like opacity with increased left mid lung airspace disease, likely postobstructive atelectasis or pneumonia. CT warranted for further characterization if not previously performed. Chest CT 09/17/19 00:00 IMPRESSION: Cavitary infiltrate in the left superior segment lower lobe with bulky mediastinal adenopathy. Differential is malignancy versus necrotizing pneumonia versus tuberculosis Assessment and Plan - Diagnosis (1) Pulmonary abscess Qualifiers: Pulmonary abscess pneumonia presence: with pneumonia Laterality: left Lung location: lower lobe of lung Qualified Code(s): J85.1 - Abscess of lung with pneumonia Is this a current diagnosis for this admission?: Yes Plan: . (2) Postobstructive pneumonia Is this a current diagnosis for this admission?: Yes (3) Mass of hilum Is this a current diagnosis for this admission?: Yes (4) COPD (chronic obstructive pulmonary disease) with emphysema Qualifiers: Emphysema type: unspecified Qualified Code(s): J43.9 - Emphysema, unspecified Is this a current diagnosis for this admission?: Yes (5) Cigarette nicotine dependence Qualifiers: Substance use status: uncomplicated Qualified Code(s): F17.210 - Nicotine dependence, cigarettes, uncomplicated Is this a current diagnosis for this admission?: Yes (6) Leukocytosis Qualifiers: Leukocytosis type: bandemia Qualified Code(s): D72.825 - Bandemia Is this a current diagnosis for this admission?: Yes (7) Pulmonary embolus, left Is this a current diagnosis for this admission?: Yes - Plan Summary Summary: We will continue with vancomycin and cefepime. Patient's pneumonia seems to be showing improvement as leukocytosis is resolving. We will continue to monitor CBC and metabolic panel Pain control as needed Regarding patient's cavitary lung lesion, this is likely pulmonary abscess which is likely complication from a postobstructive pneumonia. However we will continue to ensure that tuberculosis is ruled out. Unfortunately sputum sample was insufficient yesterday to 1 AFB smear but we will run AFB smear and MTB PCR with sputum sample today. Maintain on airborne precautions in the meantime. It seems from patient's discussion with me that her mirror painter Dr. Rowe is planning for a CT-guided biopsy of her hilar mass as outpatient. I will put on Lovenox therapeutic dosing and hold Xarelto just in case any procedures and needed inpatient. We will discuss with Dr. Rowe regarding patient's plan. - Time Time Spent with patient: 15-24 minutes
[2019-09-18] MEDS: FLUOXETINE HCL 20 MG CAPSULE PO SCH (22:16)
[2019-09-18] MEDS: ENOXAPARIN SODIUM INJ 60 MG/0.6 ML DISP.SYRIN SUBCUT SCH (22:16)
[2019-09-18] MEDS: HYDROMORPHONE HCL INJ/PF 2 MG/ML AMPULE IV PRN (22:38)
[2019-09-19] MEDS: OXYCODONE-ACETAMINOPHEN 5-325 MG TABLET PO PRN ×4 (00:15→14:37)
[2019-09-19] MEDS: IPRATROPIUM/ALBUTEROL 0.5-2.5 MG/3 ML AMPUL NEB SCH ×3 (00:29→16:27)
[2019-09-19] MEDS ORDERED: DIPHENHYDRAMINE HCL 25 MG CAPSULE ONE (01:36)
[2019-09-19] MEDS: NORMAL SALINE 1000 ML 1,000 ML IV PRN ×2 (04:00→10:15)
[2019-09-19] MEDS: VANCOMYCIN HCL 1,250 MG in DEXTROSE 5%-WATER 250 ML IV SCH ×3 (05:08→21:17)
[2019-09-19] MEDS: HYDROMORPHONE HCL INJ/PF 2 MG/ML AMPULE IV PRN (05:30)
[2019-09-19 06:15] LABS: HEMATOCRIT 32.7 % (36.0-47.0); HEMOGLOBIN 11.2 g/dL (12.0-15.5); MEAN CORPUSCULAR HEMOGLOBIN 31.3 pg (27.0-33.4); MEAN CORPUSCULAR HGB CONC 34.2 g/dL (32.0-36.0); MEAN CORPUSCULAR VOLUME 92 fl (80-97); PLATELET COUNT 733 10^3/uL (150-450); RED BLOOD COUNT 3.57 10^6/uL (3.72-5.28); RED CELL DISTRIBUTION WIDTH 12.6 % (11.5-14.0); WHITE BLOOD COUNT 10.6 10^3/uL (4.0-10.5)
[2019-09-19 06:20] LABS: ANION GAP 6 (5-19); BLOOD UREA NITROGEN 8 mg/dL (7-20); CALCIUM 8.6 mg/dL (8.4-10.2); CARBON DIOXIDE 29 mmol/L (22-30); CHLORIDE 99 mmol/L (98-107); GLUCOSE 105 mg/dL (75-110); POTASSIUM 4.6 mmol/L (3.6-5.0)
[2019-09-19 06:45] LABS: ABSOLUTE LYMPHOCYTES# (MANUAL) 2.8 10^3/uL (0.5-4.7); BASOPHILS % (MANUAL) 1 % (0-2); EOSINOPHILS % (MANUAL) 2 % (0-6); LYMPHOCYTES % (MANUAL) 26 % (13-45); MONOCYTES % (MANUAL) 9 % (3-13); SEGMENTED NEUTROPHILS % (MAN) 62 % (42-78); TOTAL CELLS COUNTED 100
[2019-09-19 06:46] LABS: PLATELET CLUMPS PRESENT; PLATELET COMMENT INCREASED; RBC MORPHOLOGY COMMENT NORMO-CYTIC/CHROMIC
[2019-09-19 07:59] LABS: APPEARANCE,URINE CLEAR; BILIRUBIN,URINE NEGATIVE (NEGATIVE); COLOR,URINE YELLOW; GLUCOSE, URINE NEGATIVE (NEGATIVE); KETONES,URINE NEGATIVE (NEGATIVE); LEUKOCYTE ESTERASE,URINE NEGATIVE (NEGATIVE); NITRITE,URINE NEGATIVE (NEGATIVE); PROTEIN,URINE NEGATIVE (NEGATIVE); UROBILINOGEN,URINE NEGATIVE mg/dL (<2.0)
[2019-09-19] MEDS: PIPERACILLIN SODIUM/TAZOBACTAM 3.375 GM in NORMAL SALINE 100 ML IV SCH ×2 (10:18→18:27)
[2019-09-19] MEDS: DOCUSATE SODIUM 100 MG CAPSULE PO SCH ×2 (10:21→18:27)
[2019-09-19] MEDS: GUAIFENESIN 600 MG TABLET.SA PO SCH ×2 (10:21→21:13)
[2019-09-19] MEDS: ENOXAPARIN SODIUM INJ 60 MG/0.6 ML DISP.SYRIN SUBCUT SCH ×2 (10:23→21:13)
[2019-09-19] MEDS: LIDOCAINE 5% (700 MG) TRANSDERMAL ADH..PATCH TP SCH (10:24)
[2019-09-19] MEDS ORDERED: PIPERACILLIN/TAZOBACTAM 3.375 GM VIAL IV SCH (12:00)
--- NOTE | 2019-09-19 13:17 | PDOC PROGRESS REPORT ---
Subjective Progress Note for:: 09/19/19 Subjective:: Discussed plan of care with patient. Patient denies any shortness of breath at the time. Still having a lot of cough with greenish to brownish sputum production. Denies any hemoptysis. Also complains of pain around the site of the abscess. Reason For Visit: POSTOBSTRUCTIVE PNEUMONIA,LEFT LUNG MASS,RECENT Physical Exam Vital Signs: Temp Pulse Resp BP Pulse Ox 97.9 F 84 16 122/75 98 09/19/19 00:20 09/19/19 08:49 09/19/19 08:49 09/19/19 00:20 09/19/19 08:49 Intake & Output 09/18/19 09/19/19 09/20/19 06:59 06:59 06:59 Intake Total 3280 3812 2017 Balance 3280 3812 2017 Weight 51.4 kg 48.6 kg General appearance: PRESENT: no acute distress, cooperative Neck exam: ABSENT: JVD Respiratory exam: PRESENT: clear to auscultation linh, unlabored. ABSENT: t achypnea, wheezes Cardiovascular exam: PRESENT: RRR, +S1, +S2. ABSENT: tachycardia GI/Abdominal exam: PRESENT: soft. ABSENT: rebound, rigid, tenderness Neurological exam: PRESENT: alert, awake, oriented to person, oriented to place, oriented to time Results Laboratory Results: 09/19/19 05:47 09/19/19 05:47 09/19/19 09/19/19 09/19/19 05:47 05:47 07:10 WBC 10.6 H RBC 3.57 L Hgb 11.2 L Hct 32.7 L MCV 92 MCH 31.3 MCHC 34.2 RDW 12.6 Plt Count 733 H Seg Neutrophils % Not Reportable Sodium 133.7 L Potassium 4.6 Chloride 99 Carbon Dioxide 29 Anion Gap 6 BUN 8 Creatinine 0.41 L Est GFR ( Amer) > 60 Glucose 105 Calcium 8.6 Urine Color YELLOW Urine Appearance CLEAR Urine pH 5.0 Ur Specific [place] 1.010 Urine Protein NEGATIVE Urine Glucose (UA) NEGATIVE Urine Ketones NEGATIVE Urine Blood NEGATIVE Urine Nitrite NEGATIVE Ur Leukocyte Esterase NEGATIVE Urine WBC (Auto) 1 09/18/19 09:00 Sputum AFB Susceptibility Slow Grower - Final Not Reportable 09/18/19 09:00 Sputum AFB Susceptibility Slow Grower - Final Not Reportable 09/18/19 09:00 Sputum AFB Susceptibility Slow Grower - Final Not Reportable 09/18/19 09:00 Sputum Microbiology Comment - Final Not Reportable 09/18/19 09:00 Sputum Nocardia Susceptibility - Final Not Reportable 09/18/19 09:00 Sputum Nocardia Susceptibility - Final ROTARY SHEAR CUTTER 09/18/19 09:00 Sputum Nocardia Susceptibility - Final Not Reportable 09/18/19 09:00 Sputum Nocardia Susceptibility - Final Not Reportable 09/18/19 09:00 Sputum Nocardia Susceptibility - Final Not Reportable 09/18/19 09:00 Sputum Nocardia Susceptibility - Final Not Reportable 09/18/19 09:00 Sputum Nocardia Susceptibility - Final Not Reportable 09/18/19 09:00 Sputum Nocardia Susceptibility - Final Not Reportable 09/18/19 09:00 Sputum Nocardia Susceptibility - Final Not Reportable 09/18/19 09:00 Sputum Nocardia Susceptibility - Final Not Reportable 09/18/19 09:00 Sputum Microbiology Comment - Final Not Reportable 09/16/19 09/16/19 10:47 10:47 Creatine Kinase 31 Troponin I < 0.012 Impressions: Chest X-Ray 09/16/19 00:00 IMPRESSION: Persistent left perihilar mass like opacity with increased left mid lung airspace disease, likely postobstructive atelectasis or pneumonia. CT warranted for further characterization if not previously performed. Chest CT 09/17/19 00:00 IMPRESSION: Cavitary infiltrate in the left superior segment lower lobe with bulky mediastinal adenopathy. Differential is malignancy versus necrotizing pneumonia versus tuberculosis Assessment and Plan - Diagnosis (1) Pulmonary abscess Qualifiers: Pulmonary abscess pneumonia presence: with pneumonia Laterality: left Lung location: lower lobe of lung Qualified Code(s): J85.1 - Abscess of lung with pneumonia Is this a current diagnosis for this admission?: Yes Plan: This is secondary to patient's postobstructive pneumonia. Cavitary lesion with air-fluid levels seen on CT scan. We will continue treatment with vancomycin. Change cefepime to Zosyn for anaerobic coverage. Will need a few days of IV antibiotics through the weekend for treatment of the abscess before switching to oral therapy. She will likely need several weeks of oral antibiotic therapy. Check MRSA swab Sputum cultures pending. AFB smears and MTB PCR also pending. PPD will be read tonight. Maintain on airborne precautions until TB is ruled out. Pain control as needed. (2) Postobstructive pneumonia Is this a current diagnosis for this admission?: Yes Plan: Secondary to obstruction from left hilar mass. Antibiotics as mentioned above. Currently on vancomycin and Zosyn. (3) Mass of hilum Is this a current diagnosis for this admission?: Yes Plan: Patient primarily sees Dr. Rowe. She had a bronchoscopy with biopsy done outpatient for her left hilar mass but the results was negative for any malignancy. I strongly suspect patient has underlying malignancy and bronchoscopy was negative due to poor sampling. Patient informs me that Dr. Rowe has set her up with CT-guided transthoracic biopsy to help improve sampling. However she states that she is waiting for her insurance coverage to kick in and that she has already applied for Medicaid. Currently not having any hemoptysis. I will speak to Dr. Rowe on Saturday to discuss plans for biopsy. (4) COPD (chronic obstructive pulmonary disease) with emphysema Qualifiers: Emphysema type: unspecified Qualified Code(s): J43.9 - Emphysema, unspecified Is this a current diagnosis for this admission?: Yes Plan: Continue nebulizer treatments. Not acutely exacerbated at this time. (5) Cigarette nicotine dependence Qualifiers: Substance use status: uncomplicated Qualified Code(s): F17.210 - Nicotine dependence, cigarettes, uncomplicated Is this a current diagnosis for this admission?: Yes Plan: Nicotine patch (6) Leukocytosis Qualifiers: Leukocytosis type: bandemia Qualified Code(s): D72.825 - Bandemia Is this a current diagnosis for this admission?: Yes (7) Pulmonary embolus, left Is this a current diagnosis for this admission?: Yes Plan: Was started on Xarelto in outpatient setting for treatment of left PE. I will place patient on therapeutic Lovenox while in the hospital just in case any kind of procedure is needed soon. - Time Time Spent with patient: 15-24 minutes
[2019-09-19] MEDS ORDERED: OXYCODONE-ACETAMINOPHEN 5-325 MG TABLET PO PRN (14:00)
[2019-09-19 14:23] LABS: VANCOMYCIN,TROUGH 13.7 ug/mL (5.0-20.0)
[2019-09-19] MEDS: FLUOXETINE HCL 20 MG CAPSULE PO SCH (21:13)
[2019-09-20] MEDS: IPRATROPIUM/ALBUTEROL 0.5-2.5 MG/3 ML AMPUL NEB SCH ×3 (00:07→16:30)
[2019-09-20] MEDS: PIPERACILLIN SODIUM/TAZOBACTAM 3.375 GM in NORMAL SALINE 100 ML IV SCH ×5 (01:21→23:28)
[2019-09-20] MEDS: OXYCODONE-ACETAMINOPHEN 5-325 MG TABLET PO PRN ×5 (01:22→22:38)
[2019-09-20 06:46] LABS: ABSOLUTE BASOPHILS # (AUTO) 0.1 10^3/uL (0.0-0.2); ABSOLUTE EOSINOPHILS # (AUTO) 0.3 10^3/uL (0.0-0.6); ABSOLUTE LYMPHOCYTES (AUTO) 1.5 10^3/uL (0.5-4.7); ABSOLUTE MONOCYTES (AUTO) 0.6 10^3/uL (0.1-1.4); ABSOLUTE NEUT (AUTO) 5.4 10^3/uL (1.7-8.2); BASOPHILS % (AUTO) 1.2 % (0-2); EOSINOPHILS % (AUTO) 4.2 % (0-6); HEMATOCRIT 32.1 % (36.0-47.0); LYMPHOCYTES % (AUTO) 18.5 % (13-45); MEAN CORPUSCULAR HEMOGLOBIN 31.4 pg (27.0-33.4); MEAN CORPUSCULAR HGB CONC 34.3 g/dL (32.0-36.0); MEAN CORPUSCULAR VOLUME 92 fl (80-97); MONOCYTES % (AUTO) 7.7 % (3-13); PLATELET COUNT 719 10^3/uL (150-450); RED CELL DISTRIBUTION WIDTH 12.5 % (11.5-14.0); SEGMENTED NEUTROPHILS % (AUTO) 68.4 % (42-78); TOTAL CELLS COUNTED % (AUTO) 100 %; WHITE BLOOD COUNT 7.9 10^3/uL (4.0-10.5)
[2019-09-20] MEDS: VANCOMYCIN HCL 1,250 MG in DEXTROSE 5%-WATER 250 ML IV SCH ×3 (06:57→21:06)
--- NOTE | 2019-09-20 09:58 | PDOC PROGRESS REPORT ---
Subjective Progress Note for:: 09/20/19 Subjective:: Patient feels well today. Denies shortness of breath. Having pain around her ribs mostly when she coughs. Mostly in the left lower rib area. Question if she could get a blister. Explained treatment plan to her. Still having cough with yellowish sputum production. Reason For Visit: POSTOBSTRUCTIVE PNEUMONIA,LEFT LUNG MASS,RECENT Physical Exam Vital Signs: Temp Pulse Resp BP Pulse Ox 97.7 F 84 20 125/81 93 09/20/19 07:57 09/20/19 07:57 09/20/19 07:57 09/20/19 07:57 09/20/19 07:57 Intake & Output 09/19/19 09/20/19 09/21/19 06:59 06:59 06:59 Intake Total 3812 4918 Output Total 0 Balance 3812 4918 Weight 48.6 kg 49.1 kg General appearance: PRESENT: no acute distress, cooperative Neck exam: ABSENT: JVD Respiratory exam: PRESENT: crackles - Left lower lung, symmetrical, unlabored. ABSENT: tachypnea GI/Abdominal exam: PRESENT: soft. ABSENT: rebound, rigid, tenderness Neurological exam: PRESENT: alert, awake, oriented to person, oriented to place, oriented to time Psychiatric exam: ABSENT: agitated, anxious Results Laboratory Results: 09/20/19 06:17 09/19/19 05:47 09/20/19 06:17 WBC 7.9 RBC 3.50 L Hgb 11.0 L Hct 32.1 L MCV 92 MCH 31.4 MCHC 34.3 RDW 12.5 Plt Count 719 H Seg Neutrophils % 68.4 09/17/19 19:46 Sputum Gram Stain - Final 09/17/19 19:46 Sputum Sputum Culture - Final Serratia Marcescens Greatly Reduced Normal Marcia 09/18/19 09:00 Sputum AFB Smear Concentration - Final 09/18/19 09:00 Sputum Acid Fast Bacilli Smear - Final 09/18/19 09:00 Sputum AFB Specimen Processing - Final 09/16/19 09/16/19 10:47 10:47 Creatine Kinase 31 Troponin I < 0.012 Impressions: Chest X-Ray 09/16/19 00:00 IMPRESSION: Persistent left perihilar mass like opacity with increased left mid lung airspace disease, likely postobstructive atelectasis or pneumonia. CT warranted for further characterization if not previously performed. Chest CT 09/17/19 00:00 IMPRESSION: Cavitary infiltrate in the left superior segment lower lobe with bulky mediastinal adenopathy. Differential is malignancy versus necrotizing pneumonia versus tuberculosis Assessment and Plan - Diagnosis (1) Pulmonary abscess Qualifiers: Pulmonary abscess pneumonia presence: with pneumonia Laterality: left L deepika location: lower lobe of lung Qualified Code(s): J85.1 - Abscess of lung with pneumonia Is this a current diagnosis for this admission?: Yes Plan: This is secondary to patient's postobstructive pneumonia. Cavitary lesion with air-fluid levels seen on CT scan. We will continue treatment with vancomycin and Zosyn. Will need a few days of IV antibiotics through the weekend for treatment of the abscess before switching to oral therapy. She will likely need several weeks of oral antibiotic therapy. Check MRSA swab Sputum cultures revealed Serratia resistant to Augmentin. AFB smears negative x1 and MTB PCR also pending. PPD is negative. Maintain on airborne precautions until neg MTB PCR or AFB negx3. Pain control as needed. Will de-escalate pain regimen. Discontinue Dilaudid. (2) Postobstructive pneumonia Is this a current diagnosis for this admission?: Yes Plan: Secondary to obstruction from left hilar mass. Antibiotics as mentioned above. Currently on vancomycin and Zosyn. (3) Mass of hilum Is this a current diagnosis for this admission?: Yes Plan: Patient primarily sees Dr. Rowe. She had a bronchoscopy with biopsy done outpatient for her left hilar mass but the results was negative for any malignancy. I strongly suspect patient has underlying malignancy and bronchoscopy was negative due to poor sampling. Patient informs me that Dr. Rowe has set her up with CT-guided transthoracic biopsy to help improve sampling. However she states that she is waiting for her insurance coverage to kick in and that she has already applied for Medicaid. Currently not having any hemoptysis. I will speak to Dr. Rowe on Saturday to discuss plans for biopsy. (4) COPD (chronic obstructive pulmonary disease) with emphysema Qualifiers: Emphysema type: unspecified Qualified Code(s): J43.9 - Emphysema, unspecified Is this a current diagnosis for this admission?: Yes Plan: Continue nebulizer treatments. Not acutely exacerbated at this time. (5) Cigarette nicotine dependence Qualifiers: Substance use status: uncomplicated Qualified Code(s): F17.210 - Nicotine dependence, cigarettes, uncomplicated Is this a current diagnosis for this admission?: Yes Plan: Nicotine patch (6) Leukocytosis Qualifiers: Leukocytosis type: bandemia Qualified Code(s): D72.825 - Bandemia Is this a current diagnosis for this admission?: Yes Plan: Resolving with treatment. (7) Pulmonary embolus, left Is this a current diagnosis for this admission?: Yes Plan: Was started on Xarelto in outpatient setting for treatment of left PE. I will place patient on therapeutic Lovenox while in the hospital just in case any kind of procedure is needed soon. - Time Time Spent with patient: 15-24 minutes
[2019-09-20] MEDS: ENOXAPARIN SODIUM INJ 60 MG/0.6 ML DISP.SYRIN SUBCUT SCH ×2 (10:21→21:07)
[2019-09-20] MEDS: GUAIFENESIN 600 MG TABLET.SA PO SCH ×2 (10:21→21:07)
[2019-09-20] MEDS: DOCUSATE SODIUM 100 MG CAPSULE PO SCH ×2 (10:22→17:07)
[2019-09-20] MEDS: LIDOCAINE 5% (700 MG) TRANSDERMAL ADH..PATCH TP SCH (10:23)
[2019-09-20] MEDS ORDERED: KETOROLAC TROMETHAMINE INJ/PF 30 MG/1 ML SDV IV PRN (15:58)
[2019-09-20] MEDS: FLUOXETINE HCL 20 MG CAPSULE PO SCH (21:07)
[2019-09-20] MEDS: DIPHENHYDRAMINE HCL 25 MG CAPSULE PO PRN (22:02)
[2019-09-21] MEDS: IPRATROPIUM/ALBUTEROL 0.5-2.5 MG/3 ML AMPUL NEB SCH ×2 (00:05→08:45)
[2019-09-21] MEDS: PIPERACILLIN SODIUM/TAZOBACTAM 3.375 GM in NORMAL SALINE 100 ML IV SCH (05:08)
[2019-09-21] MEDS: DIPHENHYDRAMINE HCL 25 MG CAPSULE PO PRN (05:08)
[2019-09-21] MEDS: OXYCODONE-ACETAMINOPHEN 5-325 MG TABLET PO PRN (05:08)
[2019-09-21] MEDS: VANCOMYCIN HCL 1,250 MG in DEXTROSE 5%-WATER 250 ML IV SCH (05:38)
[2019-09-21 08:56] LABS: HEMATOCRIT 35.2 % (36.0-47.0); HEMOGLOBIN 11.9 g/dL (12.0-15.5); MEAN CORPUSCULAR HEMOGLOBIN 31.2 pg (27.0-33.4); MEAN CORPUSCULAR HGB CONC 33.8 g/dL (32.0-36.0); MEAN CORPUSCULAR VOLUME 92 fl (80-97); PLATELET COUNT 840 10^3/uL (150-450); RED BLOOD COUNT 3.82 10^6/uL (3.72-5.28); RED CELL DISTRIBUTION WIDTH 12.7 % (11.5-14.0); WHITE BLOOD COUNT 9.2 10^3/uL (4.0-10.5)
[2019-09-21] MEDS: DOCUSATE SODIUM 100 MG CAPSULE PO SCH (10:10)
[2019-09-21] MEDS: GUAIFENESIN 600 MG TABLET.SA PO SCH (10:10)
[2019-09-21] MEDS: ENOXAPARIN SODIUM INJ 60 MG/0.6 ML DISP.SYRIN SUBCUT SCH (10:10)
[2019-09-21] MEDS: LIDOCAINE 5% (700 MG) TRANSDERMAL ADH..PATCH TP SCH (10:11)
--- NOTE | 2019-09-21 11:18 | PDOC DISCHARGE SUMMARY ---
Impression - Admit/DC Date/PCP Admission Date/Primary Care Provider: 09/16/19 14:34 Discharge Date: 09/21/19 - Discharge Diagnosis (1) Pulmonary abscess Is this a current diagnosis for this admission?: Yes (2) Postobstructive pneumonia Is this a current diagnosis for this admission?: Yes (3) Mass of hilum Is this a current diagnosis for this admission?: Yes (4) COPD (chronic obstructive pulmonary disease) with emphysema Is this a current diagnosis for this admission?: Yes (5) Cigarette nicotine dependence Is this a current diagnosis for this admission?: Yes (6) Leukocytosis Is this a current diagnosis for this admission?: Yes (7) Pulmonary embolus, left Is this a current diagnosis for this admission?: Yes - Additional Information Resuscitation Status: Full Code Discharge Diet: Regular Discharge Activity: Activity As Tolerated Referrals: [facility] [Provider Group] STEVAN ROWE MD [ACTIVE STAFF] - Prescriptions: Sulfamethoxazole/Trimethoprim [Bactrim Ds Tablet] 1 each PO Q12 28 Days #56 tablet Metronidazole [Flagyl 500 mg Tablet] 500 mg PO TID 21 Days #63 tablet Lidocaine [Lidoderm 5% (700 mg) Transdermal Patch] 1 patch TP DAILY #14 Guaifenesin [Mucinex Sr 600 mg Tablet.sa] 600 mg PO Q12 14 Days #28 tablet.sa Tramadol HCl [Ultram 50 mg Tablet] 50 mg PO Q8HP PRN #25 tablet PRN Reason: Home Medications: Albuterol Sulfate [Ventolin 0.083% Neb 2.5 mg/3 mL Ampul] 1 vial NEB Q4HP PRN 09/16/19 Budesonide/Formoterol Fumarate [Symbicort HFA 160-4.5 mcg Inhaler 6 gm] 2 puff IH Q12 09/16/19 Fluoxetine HCl 20 mg PO QHS 09/16/19 Ipratropium [place] [Atrovent 0.02% Neb 0.5 mg/2.5 ml Ampul] 0.5 mg NEB BID 09/16/19 Oxycodone HCl/Acetaminophen [Percocet 5-325 mg Tablet] 1 tab PO Q6HP PRN 09/16/19 Rivaroxaban [Xarelto 10 mg Tablet] 20 mg PO WSUPPER MDD START 09-28-19 09/16/19 Rivaroxaban [Xarelto 15 mg Tablet] 15 mg PO BID MDD LAST DOSE TO BE TAKEN 09-27-19 09/16/19 Acetaminophen [Tylenol 325 mg Tablet] 650 mg PO Q4HP PRN tablet 09/21/19 Guaifenesin [Mucinex Sr 600 mg Tablet.sa] 600 mg PO Q12 14 Days #28 tablet.sa 09/21/19 Lidocaine [Lidoderm 5% (700 mg) Transdermal Patch] 1 patch TP DAILY #14 09/21/19 Metronidazole [Flagyl 500 mg Tablet] 500 mg PO TID 21 Days #63 tablet 09/21/19 Sulfamethoxazole/Trimethoprim [Bactrim Ds Tablet] 1 each PO Q12 28 Days #56 tablet 09/21/19 Tramadol HCl [Ultram 50 mg Tablet] 50 mg PO Q8HP PRN #25 tablet 09/21/19 History of Present Illiness History of Present Illness: According to admitting provider: LUCIANA RAMIREZ is a 58 year old female discharged from [facility] 8 days ago. At that time she had a diagnosis of new pulmonary embolus. She has been undergoing ongoing work-up for a new left lung mass. She is seeing Dr. Rowe and has a primary care provider out of the [facility]. Yesterday she coughed up a large amount of brown mucus. Unsure if there was old blood or just infection. Her white count is elevated. X-ray suggests a postobstructive pneumonia. Since she was just hospitalized last week and was also be considered a hospital-acquired pneumonia. She was recently started on Xarelto for her pulmonary embolus. She is scheduled for CT-guided biopsy of the left lung mass however with an active infection this will not be accomplished anytime soon and she will need to be off the blood thinners for 4 to 5 days prior to an invasive procedure. She reports that her appetite has been down. She will be admitted for IV antibiotics with IV fluids. She has been losing weight and so we will add Ensure to her meals. She does have hyperglycemia without a history of diabetes. We will check a hemoglobin A1c. Hospital Course Hospital Course: (1) Pulmonary abscess Qualifiers: Pulmonary abscess pneumonia presence: with pneumonia Laterality: left Lung location: lower lobe of lung Qualified Code(s): J85.1 - Abscess of lung with pneumonia Is this a current diagnosis for this admission?: Yes Plan: This is secondary to patient's postobstructive pneumonia. Cavitary lesion with air-fluid levels seen on CT scan. Initially treated with vancomycin and cefepime and later cefepime was changed to Zosyn. Received 5.5 days of IV antibiotics. AFB smears negative x1, PPD is negative, discussed with lab today who informed me that MTB PCR is also negative. MRSA swab still pending at this time. Sputum cultures revealed Serratia resistant to Augmentin. We will discharge with tramadol and lidocaine patches to help with pain control. Would avoid NSAIDs given she is on Xarelto. Discussed with Dr. Rowe today and he recommends sending patient written antibiotic regimen that also includes anaerobic coverage and to give at least 3 weeks worth of antibiotics and he will follow-up with her in the office for reassessment. After reviewing susceptibilities report of Serratia and literature review, I will discharge patient with Bactrim and for coverage, I will prescribe Flagyl. (2) Postobstructive pneumonia Is this a current diagnosis for this admission?: Yes Plan: Secondary to obstruction from left hilar mass. Antibiotics as mentioned above. (3) Mass of hilum Is this a current diagnosis for this admission?: Yes Plan: Patient primarily sees Dr. Rowe. She had a bronchoscopy with biopsy done outpatient in [place] for her left hilar mass but the results was negative for any malignancy. I strongly suspect patient has underlying malignancy and bronchoscopy was negative due to poor sampling. Patient informs me that Dr. Rowe has set her up with CT-guided transthoracic biopsy. However she states that she is waiting for her insurance coverage to kick in and that she has already applied for Medicaid. I have discussed with interventional radiology who I reviewed patient's CAT scan imaging and recommends that patient is more appropriate for a bronchoscopy with endobronchial ultrasound-guided biopsy given the very central location of the mass and they recommend repeating bronchoscopy as the mass at this time seems quite substantial to gain adequate sampling. Currently not having any hemoptysis. (4) COPD (chronic obstructive pulmonary disease) with emphysema Qualifiers: Emphysema type: unspecified Qualified Code(s): J43.9 - Emphysema, unspecified Is this a current diagnosis for this admission?: Yes Plan: Continue breathing treatments at home. Not acutely exacerbated at this time. Has home oxygen. (5) Cigarette nicotine dependence Qualifiers: Substance use status: uncomplicated Qualified Code(s): F17.210 - Nicotine dependence, cigarettes, uncomplicated Is this a current diagnosis for this admission?: Yes Plan: Nicotine patch (6) Leukocytosis Qualifiers: Leukocytosis type: bandemia Qualified Code(s): D72.825 - Bandemia Is this a current diagnosis for this admission?: Yes Plan: Resolved with treatment. (7) Pulmonary embolus, left Is this a current diagnosis for this admission?: Yes Plan: Resume Xarelto on discharge Physical Exam Vital Signs: Temp Pulse Resp BP Pulse Ox 98.1 F 78 16 131/86 H 96 09/21/19 03:58 09/21/19 08:50 09/21/19 08:50 09/21/19 03:58 09/21/19 08:50 Intake & Output 09/20/19 09/21/19 09/22/19 06:59 06:59 06:59 Intake Total 4918 2970 Output Total 0 Balance 4918 2970 Weight 49.1 kg 46.9 kg General appearance: PRESENT: no acute distress, cooperative Neck exam: ABSENT: JVD Respiratory exam: PRESENT: symmetrical, unlabored. ABSENT: accessory muscle use, retraction, tachypnea Cardiovascular exam: PRESENT: +S1, +S2 Musculoskeletal exam: PRESENT: ambulatory Neurological exam: PRESENT: alert, awake, oriented to person, oriented to place, oriented to time, oriented to situation Results Laboratory Results: WBC 9.2 10^3/uL (4.0-10.5) 09/21/19 07:51 RBC 3.82 10^6/uL (3.72-5.28) 09/21/19 07:51 Hgb 11.9 g/dL (12.0-15.5) L 09/21/19 07:51 Hct 35.2 % (36.0-47.0) L 09/21/19 07:51 MCV 92 fl (80-97) 09/21/19 07:51 MCH 31.2 pg (27.0-33.4) 09/21/19 07:51 MCHC 33.8 g/dL (32.0-36.0) 09/21/19 07:51 RDW 12.7 % (11.5-14.0) 09/21/19 07:51 Plt Count 840 10^3/uL (150-450) H 09/21/19 07:51 Lymph % (Auto) 18.5 % (13-45) 09/20/19 06:17 [place] % (Auto) 7.7 % (3-13) 09/20/19 06:17 Eos % (Auto) 4.2 % (0-6) 09/20/19 06:17 Baso % (Auto) 1.2 % (0-2) 09/20/19 06:17 Absolute Neuts (auto) 5.4 10^3/uL (1.7-8.2) 09/20/19 06:17 Absolute Lymphs (auto) 1.5 10^3/uL (0.5-4.7) 09/20/19 06:17 Absolute Monos (auto) 0.6 10^3/uL (0.1-1.4) 09/20/19 06:17 Absolute Eos (auto) 0.3 10^3/uL (0.0-0.6) 09/20/19 06:17 Absolute Basos (auto) 0.1 10^3/uL (0.0-0.2) 09/20/19 06:17 Total Counted 100 09/19/19 05:47 Seg Neutrophils % 68.4 % (42-78) 09/20/19 06:17 Seg Neuts % (Manual) 62 % (42-78) 09/19/19 05:47 Band Neutrophils % 2 % (3-5) L 09/16/19 10:47 Lymphocytes % (Manual) 26 % (13-45) 09/19/19 05:47 Monocytes % (Manual) 9 % (3-13) 09/19/19 05:47 Eosinophils % (Manual) 2 % (0-6) 09/19/19 05:47 Basophils % (Manual) 1 % (0-2) 09/19/19 05:47 Abs Neuts (Manual) 6.6 10^3/uL (1.7-8.2) 09/19/19 05:47 Abs Lymphs (Manual) 2.8 10^3/uL (0.5-4.7) 09/19/19 05:47 Abs Monocytes (Manual) 1.0 10^3/uL (0.1-1.4) 09/19/19 05:47 Absolute Eos (Manual) 0.2 10^3/uL (0.0-0.6) 09/19/19 05:47 Abs Basophils (Manual) 0.1 10^3/uL (0.0-0.2) 09/19/19 05:47 Clumped Platelets PRESENT 09/19/19 05:47 Platelet Comment INCREASED 09/19/19 05:47 RBC Morph Comment NORMO-CYTIC/CHROMIC 09/19/19 05:47 D-Dimer 2.08 ug/mL (0.00-0.50) H 09/16/19 10:47 Sodium 133.7 mmol/L (137-145) L 09/19/19 05:47 Potassium 4.6 mmol/L (3.6-5.0) 09/19/19 05:47 Chloride 99 mmol/L (98-107) 09/19/19 05:47 Carbon Dioxide 29 mmol/L (22-30) 09/19/19 05:47 Anion Gap 6 (5-19) 09/19/19 05:47 BUN 8 mg/dL (7-20) 09/19/19 05:47 Creatinine 0.41 mg/dL (0.52-1.25) L 09/19/19 05:47 Est GFR ( Amer) > 60 (>60) 09/19/19 05:47 Est GFR (MDRD) Non-Af > 60 (>60) 09/19/19 05:47 Glucose 105 mg/dL (75-110) 09/19/19 05:47 Hemoglobin A1c % 5.4 % (4.7-6.0) 09/17/19 06:00 Calcium 8.6 mg/dL (8.4-10.2) 09/19/19 05:47 Magnesium 2.1 mg/dL (1.6-2.3) 09/18/19 05:45 Total Bilirubin 0.3 mg/dL (0.2-1.3) 09/18/19 05:45 Direct Bilirubin 0.0 mg/dL (0.0-0.4) 09/18/19 05:45 Neonat Total Bilirubin Not Reportable 09/18/19 05:45 Neonat Direct Bilirubin Not Reportable 09/18/19 05:45 Neonat Indirect Bili Not Reportable 09/18/19 05:45 AST 25 U/L (14-36) 09/18/19 05:45 ALT 25 U/L (<35) 09/18/19 05:45 Alkaline Phosphatase 136 U/L (38-126) H 09/18/19 05:45 Creatine Kinase 31 U/L (30-135) 09/16/19 10:47 Troponin I < 0.012 ng/mL 09/16/19 10:47 Total Protein 5.8 g/dL (6.3-8.2) L 09/18/19 05:45 Albumin 2.8 g/dL (3.5-5.0) L 09/18/19 05:45 Urine Color YELLOW 09/19/19 07:10 Urine Appearance CLEAR 09/19/19 07:10 Urine pH 5.0 (5.0-9.0) 09/19/19 07:10 Ur Specific [place] 1.010 09/19/19 07:10 Urine Protein NEGATIVE mg/dL (NEGATIVE) 09/19/19 07:10 Urine Glucose (UA) NEGATIVE mg/dL (NEGATIVE) 09/19/19 07:10 Urine Ketones NEGATIVE mg/dL (NEGATIVE) 09/19/19 07:10 Urine Blood NEGATIVE (NEGATIVE) 09/19/19 07:10 Urine Nitrite NEGATIVE (NEGATIVE) 09/19/19 07:10 Urine Bilirubin NEGATIVE (NEGATIVE) 09/19/19 07:10 Urine Urobilinogen NEGATIVE mg/dL (<2.0) 09/19/19 07:10 Ur Leukocyte Esterase NEGATIVE (NEGATIVE) 09/19/19 07:10 Urine WBC (Auto) 1 /HPF 09/19/19 07:10 Squamous Epi Cells Auto 1 /HPF 09/19/19 07:10 Urine Mucus (Auto) RARE /LPF 09/19/19 07:10 Urine Ascorbic Acid NEGATIVE (NEGATIVE) 09/19/19 07:10 Time Trough Drawn 1339 09/19/19 13:39 Vancomycin Trough 13.7 ug/mL (5.0-20.0) 09/19/19 13:39 AFB Smear NO ACID FAST BACILLI (NO AFB SEEN) 09/19/19 07:27 09/16/19 10:47 Troponin I < 0.012 Impressions: Chest X-Ray 09/16/19 00:00 IMPRESSION: Persistent left perihilar mass like opacity with increased left mid lung airspace disease, likely postobstructive atelectasis or pneumonia. CT warranted for further characterization if not previously performed. Chest CT 09/17/19 00:00 IMPRESSION: Cavitary infiltrate in the left superior segment lower lobe with bulky mediastinal adenopathy. Differential is malignancy versus necrotizing pneumonia versus tuberculosis Plan Time Spent: Greater than 30 Minutes Stroke Is this a Stroke Patient?: No Acute Heart Failure - Is this a Heart Failure Patient?: No
[2019-09-21 12:07] VITALS: BP 125/81
== END 2019-09-21 12:50 | disposition home or self-care (01) | DRG 177 ==
LOC: ER 10:12 → EH 14:34 → 4S 16:54 → 3S 09-18 00:39
PROVIDERS: ADMIT Hospitalist; ATTEND Internal Medicine
DX: J85.1 Abscess of lung with pneumonia (principal); I26.99 Other pulmonary embolism without acute cor pulmonale; J43.9 Emphysema, unspecified; R73.9 Hyperglycemia, unspecified; R91.8 Other nonspecific abnormal finding of lung field; F10.20 Alcohol dependence, uncomplicated; F17.210 Nicotine dependence, cigarettes, uncomplicated; Z87.51 Personal history of pre-term labor; D72.825 Bandemia; Z79.01 Long term (current) use of anticoagulants; Z59.7 Insufficient social insurance and welfare support
CPT/HCPCS: 36415; 71045; 71260; 80048; 80053; 80202; 81001; 82550; 83036; 83735; 84484; 85025; 85027; 85379; 87015; 87040; 87070; 87077; 87116; 87186; 87205; 87206; 87556; 93005; 93010; 94640; 96365; 99285; J0692; J1170; J1650; J1885; J1956; J2543; J3370; J3490; J7030; J7050; J7060

== ENCOUNTER 2019-11-08 13:19 | Inpatient (IN) | payer SELFPAY ==
--- NOTE | 2019-11-08 13:54 | ER Document Report ---
ED Medical Screen (RME) - General Chief Complaint: Chest Pain Stated Complaint: CHEST/BACK PAIN Time Seen by Provider: 11/08/19 13:43 Mode of Arrival: Wheelchair Information source: Patient Notes: 58-year-old female presented to ED for complaint of severe left chest pain that radiates to her flank and back. She states she was seen at this hospital from September for about 6 right days for a mass to the left lung with blood clots in the left lung. She states that since 9:00 this morning her pain has become very severe. She states she is still smoking 4 to 5 cigarettes a day drinks socially no illicit drugs except for CBD oil she has previous . Also anxiety and depression. Patient is alert oriented respirations labored due to the pain. I have moved her to room 10 after I talked with charge nurse concerning her condition. I have greeted and performed a rapid initial assessment of this patient. A comprehensive ED assessment and evaluation of the patient, analysis of test results and completion of medical decision making process will be conducted by an additional ED providers. TRAVEL OUTSIDE OF THE [place] IN LAST 30 DAYS: No - Related Data Allergies/Adverse Reactions: No Known Allergies Allergy (Verified 09/16/17 08:30) Past Medical History - Past Medical History Cardiac Medical History: Denies: Hx Coronary Artery Disease, Hx Heart Attack, Hx Hypertension Pulmonary Medical History: Reports: Hx Asthma, Hx COPD Denies: Hx Bronchitis, Hx Pneumonia Neurological Medical History: Denies: Hx Cerebrovascular Accident, Hx Seizures Endocrine Medical History: Denies: Hx Diabetes Mellitus Type 2 Renal/ Medical History: Denies: Hx Peritoneal Dialysis Musculoskeltal Medical History: Denies Hx Arthritis Psychiatric Medical History: Reports: Hx Depression Past Surgical History: Reports: Hx Section. Denies: Hx Hysterectomy, Hx Pacemaker - Immunizations Hx Diphtheria, Pertussis, Tetanus Vaccination: Yes Physical Exam - Vital signs Vitals: Temp Pulse Resp BP Pulse Ox 98.4 F 100 22 H 122/68 100 11/08/19 13:11/08/19 13:11/08/19 13:11/08/19 13:11/08/19 13:29 Course - Vital Signs Vital signs: Temp Pulse Resp BP Pulse Ox 98.4 F 100 22 H 122/68 100 11/08/19 13:11/08/19 13:29 11/08/19 13:29 11/08/19 13:29 11/08/19 13:29
[2019-11-08 14:36] LABS: INTERNATIONAL RATION (INR) 1.14; PROTHROMBIN TIME 14.8 SEC (11.4-15.4)
--- NOTE | 2019-11-08 14:36 | RADIOLOGY REPORT (SQ) ---
EXAM DESCRIPTION: CHEST 2 VIEWS IMAGES COMPLETED DATE/TIME: 11/08/2019 2:08 pm REASON FOR STUDY: left chest pain increasing lung mass and pe september COMPARISON: Chest radiograph 09/16/2019 ; CT chest 09/17/2019 TECHNIQUE: Frontal and lateral radiographic views of the chest acquired. NUMBER OF VIEWS: Two view. LIMITATIONS: None. FINDINGS: LUNGS AND PLEURA: Left perihilar mass is again noted and grossly unchanged given differenc es in technique. There is new increased reticulation in the right mid lung and subtle opacification at the left costophrenic angle. MEDIASTINUM AND HILAR STRUCTURES: No masses or contour abnormalities. HEART AND VASCULAR STRUCTURES: Heart normal size. No evidence for failure. BONES: No acute findings. HARDWARE: None in the chest. OTHER: No other significant finding. IMPRESSION: Persistent left perihilar mass with new increased opacification in the right mid lung an d left costophrenic angle. These findings could represent worsening infection/consolidation or under lying malignancy. TECHNICAL DOCUMENTATION: JOB ID: [id number] 2010 [employer]- All Rights Reserved Reading location - IP/workstation name: [email or web address]
[2019-11-08 14:37] LABS: PARTIAL THROMBOPLASTIN TIME 36.1 SEC (23.5-35.8)
[2019-11-08] MEDS ORDERED: LEVALBUTEROL HCL NEB 1.25 MG/3 ML AMPUL NEB ONE ×3 (14:46→20:18)
[2019-11-08] MEDS ORDERED: METHYLPREDNISOLONE INJ 125 MG/2 ML SDV IV ONE (14:48)
--- NOTE | 2019-11-08 14:51 | ER Document Report ---
ED Cardiac - General Chief Complaint: Chest Pain Stated Complaint: CHEST/BACK PAIN Time Seen by Provider: 11/08/19 13:43 Mode of Arrival: Wheelchair Notes: Patient is 58-year-old female who presents the emergency department with the chief complaint of shortness of breath and chest pain that starts in the middle of her chest and radiates to her back. Patient has a history of COPD, lung mass, and pulmonary emboli. Patient is currently on Xarelto for her pulmonary emboli. Patient states that she still an everyday smoker. Patient states that she has had her lung mass, and had a biopsy by Dr. Rowe, but there was no cancer at that time. Patient states that she was recommended to go back for another biopsy, but did not. Patient shortness of breath started this morning around 9:00. States that it got progressively worse. TRAVEL OUTSIDE OF THE [place] IN LAST 30 DAYS: No - Related Data Allergies/Adverse Reactions: No Known Allergies Allergy (Verified 09/16/17 08:30) Past Medical History - General Information source: Patient - Social History Smoking Status: Current Every Day Smoker Family History: Malignancy - Breast cancer mother - Past Medical History Cardiac Medical History: Denies: Hx Coronary Artery Disease, Hx Heart Attack, Hx Hypertension Pulmonary Medical History: Reports: Hx Asthma, Hx COPD Denies: Hx Bronchitis, Hx Pneumonia Neurological Medical History: Denies: Hx Cerebrovascular Accident, Hx Seizures Endocrine Medical History: Denies: Hx Diabetes Mellitus Type 2 Renal/ Medical History: Denies: Hx Peritoneal Dialysis Musculoskeletal Medical History: Denies Hx Arthritis Psychiatric Medical History: Reports: Hx Depression Past Surgical History: Reports: Hx Section. Denies: Hx Hysterectomy, Hx Pacemaker - Immunizations Hx Diphtheria, Pertussis, Tetanus Vaccination: Yes Review of Systems - Review of Systems Notes: REVIEW OF SYSTEMS: CONSTITUTIONAL : Denies recent illness. Denies recent unintentional weight loss. Denies fever, chills, or sweats. EENT: Denies eye, ear, throat, or mouth pain, discharge, or symptoms. Denies nasal or sinus congestion. CARDIOVASCULAR: See HPI. RESPIRATORY: See HPI. GASTROINTESTINAL: Denies nausea, vomiting, and diarrhea. Denies abdominal pain. Denies constipation. GENITOURINARY: Denies difficulty urinating, burning, blood in urine, urgency or frequency. MUSCULOSKELETAL: See HPI. Denies joint pain or swelling. SKIN: Denies rash, itchiness, or lesions HEMATOLOGIC : Denies easy bruising or bleeding. LYMPHATIC: Denies swollen, painful, enlarged glands. NEUROLOGICAL: Denies no numbness or tingling denies weakness. Denies headache. Denies altered mental status. Denies alteration in speech. PSYCHIATRIC: Denies stress, anxiety, alteration in sleep patterns, or depression. All other systems reviewed and negative. Physical Exam - Vital signs Vitals: Temp Pulse Resp BP Pulse Ox 98.4 F 100 22 H 122/68 100 11/08/19 13:29 11/08/19 13:29 11/08/19 13:29 11/08/19 13:29 11/08/19 13:29 - Notes Notes: PHYSICAL EXAMINATION: GENERAL: Appears well, healthy, well-nourished, no acute distress. HEAD: Normocephalic, atraumatic. EYES: PERRL, conjunctiva normal, all extraocular movements intact, sclera nonicteric ENT: Moist mucous membranes. NECK: Supple, no noticeable swelling, redness, rash. Normal range of motion. LUNGS: Diminished breath sounds throughout all lung crisostomo. CARDIOVASCULAR: S1-S2, regular rate, regular rhythm. Radial pulses 2+, normal. ABDOMEN: Normoactive bowel sounds. Soft, nontender, no guarding, no rebound tenderness, and no masses palpated. EXTREMITIES: Normal strength and range of motion, no pitting or edema. No cyanosis. NEUROLOGICAL: Moves all extremities upon command. Strength 5/5 in all extremities. PSYCH: Normal mood, normal affect. SKIN: Warm, dry. No rash, lesions, ulcerations noted. Normal skin turgor. Course - Re-evaluation Re-evalutation: 11/08/19 20:08 Hematology shows a white blood cell count hematology shows a leukocytosis of 15,000. There is also a left shift. Chest x-ray shows pneumonia, along with possible pneumonia on the CT scan. Chemistries are unremarkable. Troponin is negative. I suspect the patient is having a COPD exacerbation with associated pneumonia. There was a delay due to labs not being collected in the computer. At this time, the patient is requiring oxygen. I clarified with the patient and she only has oxygen as needed at home, but the patient was taken off oxygen and her oxygen saturation dropped to 82% on room air. Will call hospitalist for admission. 11/08/19 20:[address] Garay, the hospitalist. Patient will be admitted to the telemetry floor. I went to speak with the patient and let her know that she was going to be admitted. Patient became more tachypneic. Call Dr. Velarde at bedside. We will give the patient Decadron, morphine, and Ativan. RT at [facility] with BiPAP if she needs it. - Vital Signs Vital signs: Temp Pulse Resp BP Pulse Ox 98.4 F 100 12 122/68 96 11/08/19 13:29 11/08/19 13:29 11/08/19 16:06 11/08/19 13:29 11/08/19 15:00 - Laboratory Result Diagrams: 11/08/19 14:15 11/08/19 14:15 Laboratory results interpreted by me: 11/08/19 11/08/19 11/08/19 14:15 14:15 20:25 WBC 15.0 H Lymph % (Auto) 7.6 L Absolute Neuts (auto) 13.0 H Seg Neutrophils % 86.7 H APTT 36.1 H ABG pO2 68.8 L ABG HCO3 24.1 H ABG Total CO2 25.4 H ABG O2 Saturation 93.2 L Discharge - Discharge Clinical Impression: COPD (chronic obstructive pulmonary disease) with emphysema Qualifiers: Emphysema type: unspecified Qualified Code(s): J43.9 - Emphysema, unspecified Leukocytosis Qualifiers: Leukocytosis type: unspecified Qualified Code(s): D72.829 - Elevated white blood cell count, unspecified Condition: Stable Disposition: ADMITTED INPATIENT Admitting Provider: Jarrod (Hospitalist) Unit Admitted: Telemetry
[2019-11-08] MEDS: MAGNESIUM SULFATE/D5W 1 GM/100 ML RTUPB IV SCH ×2 (15:01→15:35)
[2019-11-08] MEDS ORDERED: MORPHINE SULFATE 10 MG/ML INJ IV ONE ×3 (15:40→20:19)
[2019-11-08 17:53] LABS: ABSOLUTE BASOPHILS # (AUTO) 0.1 10^3/uL (0.0-0.2); ABSOLUTE LYMPHOCYTES (AUTO) 1.1 10^3/uL (0.5-4.7); ABSOLUTE MONOCYTES (AUTO) 0.7 10^3/uL (0.1-1.4); BASOPHILS % (AUTO) 0.7 % (0-2); HEMATOCRIT 37.9 % (36.0-47.0); HEMOGLOBIN 12.7 g/dL (12.0-15.5); LYMPHOCYTES % (AUTO) 7.6 % (13-45); MEAN CORPUSCULAR HEMOGLOBIN 31.4 pg (27.0-33.4); MEAN CORPUSCULAR HGB CONC 33.5 g/dL (32.0-36.0); MEAN CORPUSCULAR VOLUME 94 fl (80-97); PLATELET COUNT 365 10^3/uL (150-450); RED BLOOD COUNT 4.04 10^6/uL (3.72-5.28); RED CELL DISTRIBUTION WIDTH 13.7 % (11.5-14.0); SEGMENTED NEUTROPHILS % (AUTO) 86.7 % (42-78); TOTAL CELLS COUNTED % (AUTO) 100 %
[2019-11-08] MEDS ORDERED: CEFTRIAXONE INJ 1000 MG VIAL IV ONE (17:56)
[2019-11-08 18:01] LABS: ALBUMIN 4.6 g/dL (3.5-5.0); ALKALINE PHOSPHATASE 69 U/L (38-126); ANION GAP 11 (5-19); ASPARTATE AMINO TRANSFERASE 33 U/L (14-36); BILIRUBIN,DIRECT 0.3 mg/dL (0.0-0.4); BILIRUBIN,TOTAL 0.8 mg/dL (0.2-1.3); BLOOD UREA NITROGEN 9 mg/dL (7-20); CALCIUM 9.9 mg/dL (8.4-10.2); CARBON DIOXIDE 27 mmol/L (22-30); CHLORIDE 100 mmol/L (98-107); GLUCOSE 99 mg/dL (75-110); TOTAL PROTEIN 7.8 g/dL (6.3-8.2)
[2019-11-08] MEDS ORDERED: NORMAL SALINE 1000 ML 1,000 ML IV ONE (19:03)
[2019-11-08] MEDS ORDERED: HYDROMORPHONE HCL INJ/PF 2 MG/ML AMPULE IV ONE (19:04)
--- NOTE | 2019-11-08 19:10 | RADIOLOGY REPORT (SQ) ---
EXAM DESCRIPTION: CTA CHEST IMAGES COMPLETED DATE/TIME: 11/08/2019 6:41 pm REASON FOR STUDY: shortness of breath COMPARISON: CT chest 09/17/2019 TECHNIQUE: CT scan of the chest performed using helical scanning technique with dynamic intravenous contrast injection. Images reviewed with lung, soft tissue and bone windows. Reconstructed coronal and sagittal MPR images reviewed. Additional 3 dimensional post-processing performed to develop Maximal Intensity Projection images (NV P). All images stored on PACS. All CT scanners at this facility use dose modulation, iterative reconstruction, and/or weight based d osing when appropriate to reduce radiation dose to as low as reasonably achievable (ALARA). [facility]: Dose Right [facility]: CareDose [facility]: Dose Right [facility]: Teradose 4D [facility]: AdCamp CONTRAST TYPE AND DOSE: contrast/concentration: Isovue 350.00 mmol/ml; Total Contrast Delivered: 48. 0 ml; Total Saline Delivered: 71.0 ml Limited contrast bolus for the pulmonary arteries. RENAL FUNCTION: Creatinine 0.6 RADIATION DOSE: CT Rad equipment meets quality standard of care and radiation dose reduction techniq ues were employed. CTDIvol: 13.2 - 14.3 mGy. DLP: 501 mGy-cm. . LIMITATIONS: None. FINDINGS: LUNGS AND PLEURA: Obstructive lung disease. Cavitary infiltrate in the left lower lobe is less prominent than on 09/17/2019. Cavity now 1.7 by 1 c m (was 4 x 2 cm) Minimal airspace disease in the left posterior costophrenic sulcus atelectasis versus pneumonia. No pleural effusions. No pneumothorax. AORTA AND GREAT VESSELS: No aneurysm. Contrast bolus not optimized for the aorta. HEART: New small pericardial effusion. No significant coronary artery calcifications. PULMONARY ARTERIES: No emboli visualized in the main pulmonary arteries or the lobar branches. HILAR AND MEDIASTINAL STRUCTURES: Increasing mediastinal and left hilar adenopathy as follows: Prevascular adenopathy 2.6 x 2.2 cm (was 1.5 x 1.2 cm) AP window adenopathy 5.7 x 4.7 cm (was 4.2 x 3.5 cm). Left hilar adenopathy now 6 x 6 cm (was 2 x 2.6 cm and 2.5 x 3 cm). HARDWARE: None in the chest. UPPER ABDOMEN: No significant findings. Limited exam. THYROID AND OTHER SOFT TISSUES: No masses. No adenopathy. BONES: No acute or significant finding. 3D MIPS: Confirm above findings. OTHER: No other significant finding. IMPRESSION: No gross CT angio evidence of acute pulmonary emboli. No thoracic aortic dissection Progression of mediastinal and left hilar adenopathy since 09/17/2019 New trace pericardial effusion New airspace disease left posterior costophrenic sulcus COMMENT: Quality ID # [id number]: Final reports with documentation of one or more dose reduction techniques (e.g., Automated exposure control, adjustment of the mA and/or kV according to patient size, use of iterative reconstruction technique) TECHNICAL DOCUMENTATION: JOB ID: [id number] 2010 [employer]- All Rights Reserved Reading location - IP/workstation name: [id number]
[2019-11-08] MEDS ORDERED: HYDROCODONE/ACETAMINOPHEN 5-325 MG TABLET PO ONE (19:59)
[2019-11-08] MEDS ORDERED: LORAZEPAM INJ 2 MG/1 ML VIAL IV ONE (20:19)
[2019-11-08] MEDS ORDERED: DEXAMETHASONE SOD PHOS INJ 10 MG/1 ML VIAL IV ONE (20:20)
[2019-11-08 20:35] LABS: ARTERIAL BLOOD BASE EXCESS -1.4 mmol/L; ARTERIAL BLOOD HCO3 24.1 mmol/L (20-24); ARTERIAL BLOOD O2 SATURATION 93.2 % (94-98); ARTERIAL BLOOD PCO2 43.3 mmHg (35-45); ARTERIAL BLOOD PH 7.36 (7.35-7.45); ARTERIAL BLOOD PO2 68.8 mmHg (80-100); ARTERIAL BLOOD TOTAL CO2 25.4 mmol/L (21-25)
[2019-11-08 20:47] LABS: ARTERIAL BLOOD FIO2 3 L
--- NOTE | 2019-11-08 20:53 | EKG REPORT ---
SEVERITY:- ABNORMAL ECG - SINUS RHYTHM LEFT ATRIAL ABNORMALITY : Confirmed by: Kareen Winter MD 08-Nov-2019 20:52:36
[2019-11-08] MEDS ORDERED: ONDANSETRON HCL INJ/PF 4 MG/2 ML SDV IV PRN (21:42)
[2019-11-08] MEDS ORDERED: ACETAMINOPHEN 325 MG TABLET PO PRN (21:42)
[2019-11-08] MEDS ORDERED: MAGNESIUM HYDROXIDE SUSP 30 ML UDCUP PO PRN (21:42)
[2019-11-08] MEDS ORDERED: PROMETHAZINE HCL INJ 25 MG/1 ML VIAL IV PRN (21:42)
[2019-11-08] MEDS ORDERED: OXYCODONE-ACETAMINOPHEN 5-325 MG TABLET PO PRN (21:42)
[2019-11-08] MEDS ORDERED: IPRATROPIUM/ALBUTEROL 0.5-2.5 MG/3 ML AMPUL NEB PRN (21:42)
[2019-11-08] MEDS ORDERED: METOPROLOL TARTRATE PF/INJ 5 MG/5 ML SDV IV PRN (21:49)
[2019-11-08] MEDS ORDERED: HYDRALAZINE HCL INJ/PF 20 MG/1 ML SDV IV PRN (21:49)
[2019-11-08] MEDS ORDERED: LORAZEPAM INJ 2 MG/1 ML VIAL IV PRN (21:50)
[2019-11-08] MEDS: CEFEPIME 1 GM/D5W RTU 1 GM/50 ML RTUPB IV SCH (22:12)
[2019-11-08] MEDS: FAMOTIDINE 20 MG TABLET PO SCH (22:12)
[2019-11-08] MEDS ORDERED: NICOTINE 14 MG/24 HR PATCH.TD24 TD ONE (22:15)
[2019-11-08] MEDS ORDERED: LIDOCAINE 5% (700 MG) TRANSDERMAL ADH..PATCH TP ONE (22:15)
--- NOTE | 2019-11-08 22:37 | PDOC H&P ---
History of Present Illness Admission Date/PCP: 11/08/19 20:41 ARMAND GOMEZ MD History of Present Illness: LUCIANA RAMIREZ is a 58 year old female past medical history of heavy tobacco abuse, COPD, postobstructive pneumonia, PE on chronic anticoagulation, left lung mass status post biopsy in [place] which turned out to be benign. Patient was recently admitted at [facility] for evaluation of shortness of breath, hemoptysis, lung mass, postobstructive pneumonia, and was discharged on metronidazole and Bactrim and was advised to follow-up with her electro mechanical solar technician Dr. Rowe. As per patient her electro mechanical solar technician is trying to get her to have a CT-guided left lung biopsy however due to insurance problems and has not been done yet. Patient is presenting to ED complaining of worsening shortness of breath and left-sided chest pain that radiates to her left back and flank. Chest pain is sharp, radiating to left flank and back, worse with breathing and movement, better with rest, patient denies any orthopnea, paroxysmal nocturnal dyspnea, hemoptysis, hematemesis, fever, chills, nausea, vomiting, diarrhea, constipation or any urinary symptoms. In ED she was noted to be tachypneic, tachycardic, ABG showed mild hypoxia and repeat CTA was negative for any PE however showed persistent hilar lym phadenopathy, left lower lobe infectious process possibly postobstructive pneumonia. Past Medical History Cardiac Medical History: Denies: Coronary Artery Disease, Myocardial Infarction, Hypertension Pulmonary Medical History: Reports: Asthma, Chronic Obstructive Pulmonary Disease (COPD) Denies: Bronchitis, Pneumonia Neurological Medical History: Denies: Seizures Endocrine Medical History: Denies: Diabetes Mellitus Type 2 Musculoskeltal Medical History: Denies: Arthritis Psychiatric Medical History: Reports: Depression Hematology: Denies: Anemia Past Surgical History Past Surgical History: Reports: Section Denies: Hysterectomy, Pacemaker Social History Smoking Status: Current Every Day Smoker Frequency of Alcohol Use: None - History of heavy alcohol use Hx Recreational Drug Use: No Hx Prescription Drug Abuse: No Family History Family History: Malignancy - Breast cancer mother Parental Family History Reviewed: Yes Children Family History Reviewed: Yes Sibling(s) Family History Reviewed.: Yes Medication/Allergy Home Medications: Albuterol Sulfate [Ventolin 0.083% Neb 2.5 mg/3 mL Ampul] 1 vial NEB Q4HP PRN 09/16/19 Budesonide/Formoterol Fumarate [Symbicort HFA 160-4.5 mcg Inhaler 6 gm] 2 puff IH Q12 09/16/19 Fluoxetine HCl 20 mg PO QHS 09/16/19 Ipratropium [place] [Atrovent 0.02% Neb 0.5 mg/2.5 ml Ampul] 0.5 mg NEB BID 09/16/19 Oxycodone HCl/Acetaminophen [Percocet 5-325 mg Tablet] 1 tab PO Q6HP PRN 09/16/19 Rivaroxaban [Xarelto 10 mg Tablet] 20 mg PO WSUPPER MDD START 09-28-19 09/16/19 Rivaroxaban [Xarelto 15 mg Tablet] 15 mg PO BID MDD LAST DOSE TO BE TAKEN 09-27-19 09/16/19 Acetaminophen [Tylenol 325 mg Tablet] 650 mg PO Q4HP PRN tablet 09/21/19 Guaifenesin [Mucinex Sr 600 mg Tablet.sa] 600 mg PO Q12 14 Days #28 tablet.sa 09/21/19 Lidocaine [Lidoderm 5% (700 mg) Transdermal Patch] 1 patch TP DAILY #14 09/21/19 Metronidazole [Flagyl 500 mg Tablet] 500 mg PO TID 21 Days #63 tablet 09/21/19 Sulfamethoxazole/Trimethoprim [Bactrim Ds Tablet] 1 each PO Q12 28 Days #56 tablet 09/21/19 Tramadol HCl [Ultram 50 mg Tablet] 50 mg PO Q8HP PRN #25 tablet 09/21/19 Allergies/Adverse Reactions: No Known Allergies Allergy (Verified 09/16/17 08:30) Review of Systems Review of Systems: as per hpi Physical Exam Vital Signs: Temp Pulse Resp BP Pulse Ox 98.4 F 100 12 122/68 96 11/08/19 13:29 11/08/19 13:29 11/08/19 16:06 11/08/19 13:29 11/08/19 15:00 Intake & Output 11/07/19 11/08/19 11/09/19 06:59 06:59 06:59 Intake Total 1200 Balance 1200 Weight 45.359 kg General appearance: PRESENT: no acute distress, mild distress, thin, well- developed, well-nourished Head exam: PRESENT: atraumatic, normocephalic Respiratory exam: PRESENT: accessory muscle use, clear to auscultation linh, tachypnea, other - Left anterior posterior chest tenderness.. ABSENT: rales, rhonchi, wheezes Cardiovascular exam: PRESENT: RRR, tachycardia. ABSENT: diastolic murmur, rubs, systolic murmur GI/Abdominal exam: PRESENT: normal bowel sounds, soft. ABSENT: distended, guarding, mass, organolmegaly, rebound, tenderness Neurological exam: PRESENT: alert, awake, oriented to person, oriented to place, oriented to time, oriented to situation, CN II-XII grossly intact. ABSENT: motor sensory deficit Skin exam: PRESENT: dry, intact, warm. ABSENT: cyanosis, rash Results Laboratory Results: 11/08/19 14:15 11/08/19 14:15 11/08/19 11/08/19 11/08/19 14:15 14:15 20:25 WBC 15.0 H RBC 4.04 Hgb 12.7 Hct 37.9 MCV 94 MCH 31.4 MCHC 33.5 RDW 13.7 Plt Count 365 Seg Neutrophils % 86.7 H Carbonic Acid 1.30 HCO3/H2CO3 Ratio 18:1 ABG pH 7.36 ABG pCO2 43.3 ABG pO2 68.8 L ABG HCO3 24.1 H ABG O2 Saturation 93.2 L ABG Base Excess -1.4 FiO2 3 L Sodium 138.3 Potassium 5.0 Chloride 100 Carbon Dioxide 27 Anion Gap 11 BUN 9 Creatinine 0.55 Est GFR ( Amer) > 60 Glucose 99 Calcium 9.9 Total Bilirubin 0.8 AST 33 Alkaline Phosphatase 69 Total Protein 7.8 Albumin 4.6 11/08/19 11/08/19 14:15 14:15 Creatine Kinase 78 Troponin I < 0.012 Impressions: Chest X-Ray 11/08/19 13:51 IMPRESSION: Persistent left perihilar mass with new increased opacification in the right mid lung and left costophrenic angle. These findings could represent worsening infection/consolidation or underlying malignancy. Chest/Abdomen CTA 11/08/19 15:22 IMPRESSION: No gross CT angio evidence of acute pulmonary emboli. No thoracic aortic dissection Progression of mediastinal and left hilar adenopathy since 09/17/2019 New trace pericardial effusion New airspace disease left posterior costophrenic sulcus Assessment and Plan - Diagnosis (1) Acute respiratory failure with hypoxemia Is this a current diagnosis for this admission?: Yes Plan: Multifactorial, due to severe COPD with acute exacerbation, possibly underlying malignancy with left lung mass and postobstructive pneumonia. Admit to telemetry, empiric broad-spectrum IV antibiotics, duo nebs, PRN BiPAP, supplemental oxygen, incentive spirometry, flutter valve, LABA, LABA, ICS. (2) Postobstructive pneumonia Is this a current diagnosis for this admission?: Yes Plan: Most likely due to lung mass possibly malignancy given history of severe tobacco abuse. Recently admitted to [facility], received empiric IV antibiotics and discharged on metronidazole and Bactrim. Sputum culture grew Serratia marcescens and work-up for Mycobacterium tuberculosis negative in previous admission. Admit to floor, empiric IV antibiotics. Patient has been followed by Dr. Rowe electro mechanical solar technician and is in the process of getting CT-guided biopsy however as per patient she has been having difficulty due to financial reasons. We will consult oncology and hopefully they can expedite CT-guided lung biopsy on this admission. (3) Mass of hilum Is this a current diagnosis for this admission?: Yes Plan: Persistent hilar mass with postobstructive pneumonia. Most likely malignant given history of heavy tobacco abuse. Lung biopsy in [place] beginning of this year turned out to be negative. Needs repeat of biopsy. Patient has been followed by Dr. Rowe electro mechanical solar technician and is in the process of getting CT-guided biopsy however as per patient she has been having difficulty due to financial reasons. We will consult oncology and hopefully they can expedite CT-guided lung biopsy on this admission. Currently on oral anticoagulation for history of PE will switch to weight-based low molecular weight heparin in anticipation for possible biopsy. (4) COPD (chronic obstructive pulmonary disease) with emphysema Qualifiers: Emphysema type: panlobular Qualified Code(s): J43.1 - Panlobular emphysema Is this a current diagnosis for this admission?: Yes Plan: History of severe oxygen dependent COPD history of severe tobacco abuse. Plan as per #1. (5) Pulmonary embolus, left Is this a current diagnosis for this admission?: Yes Plan: History of PE on chronic anticoagulation. Likely due to underlying malignancy. Repeat CTA negative for PE however given possibility of malignancy will continue anticoagulation. We will switch to weight-based low molecular weight heparin in anticipation for possible biopsy, can be switched back to home meds upon discharge. (6) Tobacco abuse Is this a current diagnosis for this admission?: Yes Plan: History of severe tobacco abuse. Extensively counseled on quitting. NicoDerm patch will be provided. (7) Cachexia Is this a current diagnosis for this admission?: Yes Plan: BMI 17.7. Likely due to underlying lung malignancy severe COPD. Extensive work-up for Mycobacterium tuberculosis in previous admission was negative. Encourage p.o. intake. We will start on appetite stimulant. We will consult registered dietitian. (8) Chest pain Qualifiers: Chest pain type: chest pain on breathing Qualified Code(s): R07.1 - Chest pain on breathing; R07.81 - Pleurodynia Is this a current diagnosis for this admission?: Yes Plan: Pleuritic, likely cardiac. Tenderness to palpation on the left posterior chest. Most likely due to pleurisy/postobstructive pneumonia. EKG no acute changes. Troponins negative. Plan as above. - Time Time Spent with patient: 35 or more minutes Smoking Cessation Education: 3 to 10 minutes Medications reviewed and adjusted accordingly: Yes Anticipated Discharge Disposition: Home with Home Health Anticipated Discharge Timeframe: within 72 hours
[2019-11-08] MEDS ORDERED: METHYLPREDNISOLONE INJ 40 MG/1 ML SDV IV SCH (22:45)
[2019-11-08] MEDS ORDERED: METHYLPREDNISOLONE INJ 40 MG/1 ML SDV IV ONE (23:00)
[2019-11-09] MEDS: MORPHINE SULFATE 10 MG/ML INJ IV PRN ×3 (04:20→21:39)
[2019-11-09] MEDS: METHYLPREDNISOLONE INJ 40 MG/1 ML SDV IV SCH ×3 (05:09→21:39)
[2019-11-09 06:13] LABS: PROTHROMBIN TIME 14.4 SEC (11.4-15.4)
[2019-11-09 06:14] LABS: PARTIAL THROMBOPLASTIN TIME 37.1 SEC (23.5-35.8)
[2019-11-09 06:29] LABS: HEMATOCRIT 34.6 % (36.0-47.0); HEMOGLOBIN 11.8 g/dL (12.0-15.5); MEAN CORPUSCULAR HEMOGLOBIN 31.1 pg (27.0-33.4); MEAN CORPUSCULAR VOLUME 91 fl (80-97); PLATELET COUNT 299 10^3/uL (150-450); RED BLOOD COUNT 3.79 10^6/uL (3.72-5.28); RED CELL DISTRIBUTION WIDTH 13.4 % (11.5-14.0); WHITE BLOOD COUNT 22.1 10^3/uL (4.0-10.5)
[2019-11-09 06:35] LABS: ALBUMIN 4.3 g/dL (3.5-5.0); ALKALINE PHOSPHATASE 69 U/L (38-126); ANION GAP 11 (5-19); ASPARTATE AMINO TRANSFERASE 23 U/L (14-36); BILIRUBIN,DIRECT 0.3 mg/dL (0.0-0.4); BILIRUBIN,TOTAL 0.8 mg/dL (0.2-1.3); BLOOD UREA NITROGEN 7 mg/dL (7-20); CALCIUM 9.3 mg/dL (8.4-10.2); CARBON DIOXIDE 24 mmol/L (22-30); CHLORIDE 100 mmol/L (98-107); GLUCOSE 145 mg/dL (75-110); PHOSPHORUS 3.8 mg/dL (2.5-4.5); POTASSIUM 4.4 mmol/L (3.6-5.0); TOTAL PROTEIN 7.5 g/dL (6.3-8.2)
[2019-11-09 07:49] LABS: ABSOLUTE LYMPHOCYTES# (MANUAL) 1.5 10^3/uL (0.5-4.7); ABSOLUTE MONOCYTES # (MANUAL) 0.7 10^3/uL (0.1-1.4); BASOPHILS % (MANUAL) 0 % (0-2); EOSINOPHILS % (MANUAL) 0 % (0-6); LYMPHOCYTES % (MANUAL) 7 % (13-45); MONOCYTES % (MANUAL) 3 % (3-13); SEGMENTED NEUTROPHILS % (MAN) 90 % (42-78); TOTAL CELLS COUNTED 100
[2019-11-09 07:51] LABS: RBC MORPHOLOGY COMMENT NORMO-CYTIC/CHROMIC
[2019-11-09 07:52] LABS: PLATELET COMMENT ADEQUATE
[2019-11-09] MEDS: FAMOTIDINE 20 MG TABLET PO SCH ×2 (09:34→21:39)
[2019-11-09] MEDS: DOCUSATE SODIUM 100 MG CAPSULE PO SCH ×2 (09:34→09:36)
[2019-11-09] MEDS: MEGESTROL ACETATE 20 MG TABLET PO SCH (09:34)
[2019-11-09] MEDS: FLUOXETINE HCL 20 MG CAPSULE PO SCH (09:34)
[2019-11-09] MEDS: CEFEPIME 1 GM/D5W RTU 1 GM/50 ML RTUPB IV SCH ×2 (09:35→21:39)
[2019-11-09] MEDS: FLUTICASONE/UMECLIDIN/VILANTER 100-62.5-25 MCG/DOSE IH SCH (09:35)
[2019-11-09] MEDS: NICOTINE 14 MG/24 HR PATCH.TD24 TD SCH (09:36)
--- NOTE | 2019-11-09 09:45 | PDOC CONSULTATION ---
Consultation Consult Date: 11/09/19 Provider Consulted: JAQUI HARRIS Consult reason:: Hematology/Oncology consultation was requested for patient with worsening lung mass highly suspicious for cancer. History of Present Illness Admission Date/PCP: 11/08/19 20:41 ARMAND GOMEZ MD History of Present Illness: LUCIANA RAMIREZ is a 58 year old female who states that she was admitted to the hospital in June of this year with dyspnea and found to have a lung mass. This was biopsied, and was negative. However, another biopsy was recommended. She has been followed by Dr. Rowe who was trying to arrange for evaluation at [facility] for bronchscopy. However, she states that insurance issues have delayed this process and she is very worried that the delay will mean that it is too late and it is cancer that cannot be treated. 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 She was also admitted to this institution in September, but states that Dr. Rowe was never told she was here, so again, no biopsy was performed. She states that she has had worsening dyspnea, especially in the mornings. She has home oxygen and has been trying to cut back on her smoking. She was also diagnosed with a PE and was started on Xarelto. She states that she has been taking this at home. She did have a sharp chest pain yesterday, but otherwise, is only complaining of dyspnea. Past Medical History Cardiac Medical History: Denies: Coronary Artery Disease, Myocardial Infarction, Hypertension Pulmonary Medical History: Reports: Asthma, Chronic Obstructive Pulmonary Disease (COPD) Denies: Bronchitis, Pneumonia Neurological Medical History: Denies: Seizures Endocrine Medical History: Denies: Diabetes Mellitus Type 2 Musculoskeltal Medical History: Denies: Arthritis Psychiatric Medical History: Reports: Depression Hematology: Denies: Anemia Past Surgical History Past Surgical History: Reports: Section Denies: Hysterectomy, Pacemaker Social History Smoking Status: Current Every Day Smoker Cigarettes Packs Per Day: 0.5 Electronic Cigarette use?: No Number of Years Smokin Last Time Smoked: 11/08/2019 Frequency of Alcohol Use: None Hx Recreational Drug Use: No Drugs: None Hx Prescription Drug Abuse: No Past Social History Note: Lives with boyfirend. Has 3 children. Family History Family History: Malignancy - Breast cancer mother Parental Family History Reviewed: Yes - Mother breast cancer. Maternal aunt with breast cancer. Children Family History Reviewed: Yes Sibling(s) Family History Reviewed.: Yes - Maternal uncle with stomach cancer. Medication/Allergy Home Medications: Albuterol Sulfate [Ventolin 0.083% Neb 2.5 mg/3 mL Ampul] 1 vial NEB Q4HP PRN 09/16/19 Budesonide/Formoterol Fumarate [Symbicort HFA 160-4.5 mcg Inhaler 6 gm] 2 puff IH Q12 09/16/19 Fluoxetine HCl 20 mg PO QHS 09/16/19 Ipratropium [place] [Atrovent 0.02% Neb 0.5 mg/2.5 ml Ampul] 0.5 mg NEB BID 09/16/19 Oxycodone HCl/Acetaminophen [Percocet 5-325 mg Tablet] 1 tab PO Q6HP PRN 09/16/19 Rivaroxaban [Xarelto 10 mg Tablet] 20 mg PO WSUPPER MDD START 09-28-19 09/16/19 Rivaroxaban [Xarelto 15 mg Tablet] 15 mg PO BID MDD LAST DOSE TO BE TAKEN 09-27-19 09/16/19 Acetaminophen [Tylenol 325 mg Tablet] 650 mg PO Q4HP PRN tablet 09/21/19 Guaifenesin [Mucinex Sr 600 mg Tablet.sa] 600 mg PO Q12 14 Days #28 tablet.sa 09/21/19 Lidocaine [Lidoderm 5% (700 mg) Transdermal Patch] 1 patch TP DAILY #14 09/21/19 Metronidazole [Flagyl 500 mg Tablet] 500 mg PO TID 21 Days #63 tablet 09/21/19 Sulfamethoxazole/Trimethoprim [Bactrim Ds Tablet] 1 each PO Q12 28 Days #56 tablet 09/21/19 Tramadol HCl [Ultram 50 mg Tablet] 50 mg PO Q8HP PRN #25 tablet 09/21/19 Allergies/Adverse Reactions: No Known Allergies Allergy (Verified 09/16/17 08:30) Review of Systems Constitutional: ABSENT: fever(s), headache(s) Eyes: ABSENT: visual disturbances Ears: ABSENT: hearing changes Nose, Mouth, and Throat: ABSENT: sore throat Cardiovascular: PRESENT: chest pain Respiratory: PRESENT: dyspnea Gastrointestinal: ABSENT: constipation, nausea Genitourinary: ABSENT: dysuria Musculoskeletal: ABSENT: back pain Integumentary: ABSENT: rash Neurological: ABSENT: frequent falls, weakness Psychiatric: PRESENT: depression Hematologic/Lymphatic: ABSENT: easy bleeding Physical Exam Vital Signs: Temp Pulse Resp BP Pulse Ox 97.9 F 102 H 18 124/84 99 11/09/19 07:58 11/09/19 07:58 11/09/19 07:58 11/09/19 07:58 11/09/19 07:58 Intake & Output 11/08/19 11/09/19 11/10/19 06:59 06:59 06:59 Intake Total 1250 480 Output Total 0 Balance 1250 480 Weight 48.8 kg 48.8 kg General appearance: PRESENT: other - moderate respiratory distress. Difficulty speaking. Head exam: PRESENT: normocephalic Eye exam: PRESENT: EOMI Mouth exam: PRESENT: dry mucosa Neck exam: ABSENT: lymphadenopathy, tenderness Respiratory exam: PRESENT: accessory muscle use, clear to auscultation linh Cardiovascular exam: PRESENT: RRR GI/Abdominal exam: PRESENT: soft. ABSENT: tenderness Extremities exam: ABSENT: pedal edema Musculoskeletal exam: PRESENT: normal inspection Neurological exam: PRESENT: alert, awake Psychiatric exam: PRESENT: anxious Focused psych exam: PRESENT: other - fixated on insurance problems. Skin exam: PRESENT: normal color Results Laboratory Results: 11/09/19 05:30 11/09/19 05:30 11/08/19 11/08/19 11/08/19 14:15 14:15 20:25 WBC 15.0 H RBC 4.04 Hgb 12.7 Hct 37.9 MCV 94 MCH 31.4 MCHC 33.5 RDW 13.7 Plt Count 365 Seg Neutrophils % 86.7 H Carbonic Acid 1.30 HCO3/H2CO3 Ratio 18:1 ABG pH 7.36 ABG pCO2 43.3 ABG pO2 68.8 L ABG HCO3 24.1 H ABG O2 Saturation 93.2 L ABG Base Excess -1.4 FiO2 3 L Sodium 138.3 Potassium 5.0 Chloride 100 Carbon Dioxide 27 Anion Gap 11 BUN 9 Creatinine 0.55 Est GFR ( Amer) > 60 Glucose 99 Calcium 9.9 Phosphorus Magnesium Total Bilirubin 0.8 AST 33 Alkaline Phosphatase 69 Total Protein 7.8 Albumin 4.6 11/09/19 11/09/19 05:30 05:30 WBC 22.1 H RBC 3.79 Hgb 11.8 L Hct 34.6 L MCV 91 MCH 31.1 MCHC 34.0 RDW 13.4 Plt Count 299 Seg Neutrophils % Not Reportable Carbonic Acid HCO3/H2CO3 Ratio ABG pH ABG pCO2 ABG pO2 ABG HCO3 ABG O2 Saturation ABG Base Excess FiO2 Sodium 134.5 L Potassium 4.4 Chloride 100 Carbon Dioxide 24 Anion Gap 11 BUN 7 Creatinine 0.43 L Est GFR ( Amer) > 60 Glucose 145 H Calcium 9.3 Phosphorus 3.8 Magnesium 2.2 Total Bilirubin 0.8 AST 23 Alkaline Phosphatase 69 Total Protein 7.5 Albumin 4.3 11/08/19 11/08/19 14:15 14:15 Creatine Kinase 78 Troponin I < 0.012 Impressions: Chest X-Ray 11/08/19 13:51 IMPRESSION: Persistent left perihilar mass with new increased opacification in the right mid lung and left costophrenic angle. These findings could represent worsening infection/consolidation or underlying malignancy. Chest/Abdomen CTA 11/08/19 15:22 IMPRESSION: No gross CT angio evidence of acute pulmonary emboli. No thoracic aortic dissection Progression of mediastinal and left hilar adenopathy since 09/17/2019 New trace pericardial effusion New airspace disease left posterior costophrenic sulcus Status: Image reviewed by me Assessment & Plan - Diagnosis (1) Acute respiratory failure with hypoxemia Is this a current diagnosis for this admission?: Yes Plan: Oxygen, nebulizer treatments. (2) Cigarette nicotine dependence Qualifiers: Substance use status: uncomplicated Qualified Code(s): F17.210 - Nicotine dependence, cigarettes, uncomplicated Is this a current diagnosis for this admission?: Yes (3) Mass of hilum Is this a current diagnosis for this admission?: Yes Plan: I discussed with Dr. Rivero in interventional radiology. He does NOT believe further CT guided biopsy are the best option and believes bronchosocpy is the safest way to obtain tissue for diagnosis. Dr. Rowe has already tried to refer her to Dr. Nixon in [place] for this procedure. I do NOT believe it is safe to wait further as outpatient for this procedure. I will try to arrange direct hospital transfer. (4) Pulmonary embolus, left Is this a current diagnosis for this admission?: Yes Plan: Continue either Lovenox or Xarelto. - Plan Summary Plan Summary: Patient was discussed with hospitalist as well. Please call if needed.
[2019-11-09] MEDS: IPRATROPIUM/ALBUTEROL 0.5-2.5 MG/3 ML AMPUL NEB SCH ×3 (09:55→20:04)
[2019-11-09] MEDS: LIDOCAINE 5% (700 MG) TRANSDERMAL ADH..PATCH TP SCH (10:45)
[2019-11-09] MEDS: OXYCODONE-ACETAMINOPHEN 5-325 MG TABLET PO PRN ×2 (12:33→19:49)
[2019-11-09] MEDS ORDERED: NICOTINE 21 MG/24 HR PATCH.TD24 TD PRN (16:07)
--- NOTE | 2019-11-09 16:22 | PDOC PROGRESS REPORT ---
Subjective Subjective:: Patient admitted for newly found lung mass of unknown cell type. Oncology consulted and I discussed the case with them, recommended patient be transferred to outside hospital [facility] where Dr. pichardo can perform biopsy of lung mass. I contacted this hospital and they refused to discuss the case as they are at capacity and not accepting any non-emergency cases. They stated they did not know when they would have the ability to take outside transfers but it would not be anytime soon as they have been like this for some time now. We will treat the patient's pneumonia here and get her well enough for outpatient follow-up. I recommend that if she becomes acutely ill and would be able to make the drive to the outside hospital, it may be best if she goes there through the ER as this may facilitate her biopsy getting done. Also of note, nursing has seen the patient closed up in her bathroom with smoke coming out from under the door, patient denied smoking but the room reeked of tobacco smoke reportedly. Patient also left the floor without telling her nurse and went outside with her , noted to be unsteady on her feet with low oxygen saturation. Nursing educated patient. Other than RENTERIA, anxiety, and chronic generalized back pain, patient has no new complaints today. Reason For Visit: ACUTE RESPIRATORY FAILURE WITH HYPOXIA, Physical Exam Vital Signs: Temp Pulse Resp BP Pulse Ox 97.8 F 114 H 18 117/72 100 11/09/19 12:29 11/09/19 14:00 11/09/19 13:32 11/09/19 12:29 11/09/19 13:32 Intake & Output 11/08/19 11/09/19 11/10/19 06:59 06:59 06:59 Intake Total 1250 995 Output Total 0 Balance 1250 995 Weight 48.8 kg 48.8 kg General appearance: PRESENT: no acute distress, well-developed, well-nourished Head exam: PRESENT: atraumatic, normocephalic Eye exam: PRESENT: conjunctiva pink Mouth exam: PRESENT: moist Respiratory exam: PRESENT: wheezes - Mild. ABSENT: rales, rhonchi Cardiovascular exam: PRESENT: RRR. ABSENT: diastolic murmur, rubs, systolic murmur GI/Abdominal exam: PRESENT: normal bowel sounds, soft. ABSENT: distended, guarding, mass, organolmegaly, rebound, tenderness Neurological exam: PRESENT: alert, awake, oriented to person, oriented to place, oriented to time, oriented to situation Psychiatric exam: PRESENT: anxious Skin exam: PRESENT: dry, intact, warm Results Laboratory Results: 11/09/19 05:30 11/09/19 05:30 11/08/19 11/08/19 11/08/19 14:15 14:15 20:25 WBC 15.0 H RBC 4.04 Hgb 12.7 Hct 37.9 MCV 94 MCH 31.4 MCHC 33.5 RDW 13.7 Plt Count 365 Seg Neutrophils % 86.7 H Carbonic Acid 1.30 HCO3/H2CO3 Ratio 18:1 ABG pH 7.36 ABG pCO2 43.3 ABG pO2 68.8 L ABG HCO3 24.1 H ABG O2 Saturation 93.2 L ABG Base Excess -1.4 FiO2 3 L Sodium 138.3 Potassium 5.0 Chloride 100 Carbon Dioxide 27 Anion Gap 11 BUN 9 Creatinine 0.55 Est GFR ( Amer) > 60 Glucose 99 Calcium 9.9 Phosphorus Magnesium Total Bilirubin 0.8 AST 33 Alkaline Phosphatase 69 Total Protein 7.8 Albumin 4.6 11/09/19 11/09/19 05:30 05:30 WBC 22.1 H RBC 3.79 Hgb 11.8 L Hct 34.6 L MCV 91 MCH 31.1 MCHC 34.0 RDW 13.4 Plt Count 299 Seg Neutrophils % Not Reportable Carbonic Acid HCO3/H2CO3 Ratio ABG pH ABG pCO2 ABG pO2 ABG HCO3 ABG O2 Saturation ABG Base Excess FiO2 Sodium 134.5 L Potassium 4.4 Chloride 100 Carbon Dioxide 24 Anion Gap 11 BUN 7 Creatinine 0.43 L Est GFR ( Amer) > 60 Glucose 145 H Calcium 9.3 Phosphorus 3.8 Magnesium 2.2 Total Bilirubin 0.8 AST 23 Alkaline Phosphatase 69 Total Protein 7.5 Albumin 4.3 11/08/19 11/08/19 14:15 14:15 Creatine Kinase 78 Troponin I < 0.012 Impressions: Chest X-Ray 11/08/19 13:51 IMPRESSION: Persistent left perihilar mass with new increased opacification in the right mid lung and left costophrenic angle. These findings could represent worsening infection/consolidation or underlying malignancy. Chest/Abdomen CTA 11/08/19 15:22 IMPRESSION: No gross CT angio evidence of acute pulmonary emboli. No thoracic aortic dissection Progression of mediastinal and left hilar adenopathy since 09/17/2019 New trace pericardial effusion New airspace disease left posterior costophrenic sulcus Assessment and Plan - Diagnosis (1) Mass of hilum Is this a current diagnosis for this admission?: Yes Plan: Per admitting physician: "Persistent hilar mass with postobstructive pneumonia. Most likely malignant given history of heavy tobacco abuse. Lung biopsy in [place] beginning of this year turned out to be negative. Needs repeat of biopsy. Patient has been followed by Dr. Rowe faculty instructor and is in the process of getting CT-guided biopsy however as per patient she has been having difficulty due to financial reasons. We will consult oncology and hopefully they can expedite CT-guided lung biopsy on this admission. Currently on oral anticoagulation for history of PE will switch to weight-based low molecular weight heparin in anticipation for possible biopsy." 11/09/2019 Contacted [facility] for transfer to have biopsy done by Dr. pichardo, direct capacity and refused transfer Pulmonology Dr. Rowe consulted Oncology consulted Causing recurrent postobstructive pneumonia (2) Postobstructive pneumonia Is this a current diagnosis for this admission?: Yes Plan: Recently discharged from outside hospital on Flagyl and Bactrim, respiratory cultures were growing Serratia marcescens Empiric cefepime Blood cultures pending Needs underlying lung mass treated (3) Acute respiratory failure with hypoxemia Is this a current diagnosis for this admission?: Yes Plan: Multifactorial, due to severe COPD with acute exacerbation, possibly underlying malignancy with left lung mass and postobstructive pneumonia. IV antibiotics, duo nebs, PRN BiPAP, supplemental oxygen, incentive spirometry, flutter valve, LABA, LABA, ICS. (4) COPD (chronic obstructive pulmonary disease) with emphysema Qualifiers: Emphysema type: panlobular Qualified Code(s): J43.1 - Panlobular emphysema Is this a current diagnosis for this admission?: Yes Plan: History of severe oxygen dependent COPD history of severe tobacco abuse (5) Tobacco abuse Is this a current diagnosis for this admission?: Yes Plan: Found smoking in hospital room by nursing, educated on not doing this Extensively counseled on quitting. NicoDerm patch will be provided. (6) Chronic anticoagulation Is this a current diagnosis for this admission?: Yes (7) Pulmonary embolus, left Is this a current diagnosis for this admission?: Yes Plan: History of PE on chronic anticoagulation. Likely due to underlying malignancy. Repeat CTA negative for PE however given possibility of malignancy will continue anticoagulation. Switch to weight-based low molecular weight heparin in anticipation for possible biopsy, can be switched back to home meds upon discharge. - Time Time Spent with patient: 25-34 minutes Medications reviewed and adjusted accordingly: Yes Anticipated Discharge Disposition: Home, Self Care Anticipated Discharge Timeframe: within 72 hours - Inpatient Certification Based on my medical assessment, after consideration of the patient's comorbidities, presenting symptoms, or acuity I expect that the services needed warrant INPATIENT care.: Yes I certify that my determination is in accordance with my understanding of Medicare's requirements for reasonable and necessary INPATIENT services [42 CFR 412.3e].: Yes Medical Necessity: Significant Comorbidiites Make Outpatient Treatment Too Risky, Need Close Monitoring Due to Risk of Patient Decompensation, Need for IV Antibiotics, Risk of Complication if Not Cared For in Hospital, Risk of Diagn osis Which Will Require Inpatient Eval/Care/Monitoring
[2019-11-09] MEDS ORDERED: HEPARIN SODIUM,PORCINE/D5W 25,000 UNIT/250 ML RTUINJ IV PRN (17:08)
[2019-11-09 17:54] LABS: HEMOGLOBIN 12.1 g/dL (12.0-15.5); INTERNATIONAL RATION (INR) 1.12; MEAN CORPUSCULAR HEMOGLOBIN 31.5 pg (27.0-33.4); MEAN CORPUSCULAR HGB CONC 34.5 g/dL (32.0-36.0); MEAN CORPUSCULAR VOLUME 91 fl (80-97); PROTHROMBIN TIME 14.6 SEC (11.4-15.4); RED BLOOD COUNT 3.83 10^6/uL (3.72-5.28); RED CELL DISTRIBUTION WIDTH 13.4 % (11.5-14.0); WHITE BLOOD COUNT 22.5 10^3/uL (4.0-10.5)
[2019-11-09 17:55] LABS: PARTIAL THROMBOPLASTIN TIME 38.4 SEC (23.5-35.8)
[2019-11-09 18:00] LABS: APPEARANCE,URINE CLEAR; BILIRUBIN,URINE NEGATIVE (NEGATIVE); COLOR,URINE YELLOW; GLUCOSE, URINE NEGATIVE (NEGATIVE); KETONES,URINE NEGATIVE (NEGATIVE); LEUKOCYTE ESTERASE,URINE TRACE (NEGATIVE); NITRITE,URINE NEGATIVE (NEGATIVE); PROTEIN,URINE NEGATIVE (NEGATIVE); URINE SPECIFIC GRAVITY 1.015; UROBILINOGEN,URINE NEGATIVE mg/dL (<2.0)
[2019-11-09] MEDS ORDERED: RIVAROXABAN 15 MG TABLET PO SCH (18:00)
[2019-11-09 18:22] LABS: ABSOLUTE LYMPHOCYTES# (MANUAL) 0.7 10^3/uL (0.5-4.7); ABSOLUTE MONOCYTES # (MANUAL) 0.2 10^3/uL (0.1-1.4); BAND NEUTROPHILS % (MANUAL) 2 % (3-5); BASOPHILS % (MANUAL) 0 % (0-2); EOSINOPHILS % (MANUAL) 0 % (0-6); LYMPHOCYTES % (MANUAL) 3 % (13-45); MONOCYTES % (MANUAL) 1 % (3-13); SEGMENTED NEUTROPHILS % (MAN) 94 % (42-78); TOTAL CELLS COUNTED 100
[2019-11-09 18:23] LABS: PLATELET CLUMPS PRESENT; PLATELET COMMENT ADEQUATE; RBC MORPHOLOGY COMMENT NORMO-CYTIC/CHROMIC
[2019-11-09 18:24] LABS: PLATELET COUNT 292 10^3/uL (150-450)
[2019-11-10] MEDS: OXYCODONE-ACETAMINOPHEN 5-325 MG TABLET PO PRN ×3 (02:24→19:34)
[2019-11-10] MEDS: MORPHINE SULFATE 10 MG/ML INJ IV PRN ×5 (02:32→22:59)
[2019-11-10] MEDS: METHYLPREDNISOLONE INJ 40 MG/1 ML SDV IV SCH ×3 (06:47→21:37)
[2019-11-10] MEDS: IPRATROPIUM/ALBUTEROL 0.5-2.5 MG/3 ML AMPUL NEB SCH ×3 (08:05→19:59)
[2019-11-10] MEDS: FAMOTIDINE 20 MG TABLET PO SCH ×2 (09:34→21:37)
[2019-11-10] MEDS: DOCUSATE SODIUM 100 MG CAPSULE PO SCH (09:34)
[2019-11-10] MEDS: MEGESTROL ACETATE 20 MG TABLET PO SCH (09:34)
[2019-11-10] MEDS: FLUTICASONE/UMECLIDIN/VILANTER 100-62.5-25 MCG/DOSE IH SCH (09:34)
[2019-11-10] MEDS: NICOTINE 14 MG/24 HR PATCH.TD24 TD SCH (09:34)
[2019-11-10] MEDS: CEFEPIME 1 GM/D5W RTU 1 GM/50 ML RTUPB IV SCH ×2 (09:34→21:37)
[2019-11-10] MEDS: FLUOXETINE HCL 20 MG CAPSULE PO SCH (09:35)
[2019-11-10] MEDS: LIDOCAINE 5% (700 MG) TRANSDERMAL ADH..PATCH TP SCH (09:35)
--- NOTE | 2019-11-10 09:48 | PDOC PROGRESS REPORT ---
Subjective Progress Note for:: 11/10/19 Subjective:: Patient is feeling much better today. Although she remains with mild dyspnea, she is sitting up eating breakfast. Able to converse freely without significant dyspnea. Reason For Visit: ACUTE RESPIRATORY FAILURE WITH HYPOXIA, Physical Exam Vital Signs: Temp Pulse Resp BP Pulse Ox 98.0 F 94 15 124/71 97 11/09/19 23:25 11/10/19 08:05 11/10/19 08:05 11/09/19 23:25 11/10/19 08:05 Pulse Oximeter Continuous Start: 11/09/19 16:25 Freq: RTQ4 Status: Active Protocol: Document 11/10/19 08:05 [facility] [place] [facility] (Rec: 11/10/19 08:15 [facility] [id number]) Pulse Oximetry Assessment Oxygen Saturation (92-100) 97 Oxygen Flow Rate (L/min) 3 Oxygen Delivery Method Nasal Cannula Fraction of Inspired Oxygen (FIO2) 32 Equipment Usage Equipment in Use Continuous SpO2 Machine # 4 Intake & Output 11/09/19 11/10/19 11/11/19 06:59 06:59 06:59 Intake Total 1250 1342 Output Total 0 1500 Balance 1250 -158 Weight 48.8 kg 47.7 kg General appearance: PRESENT: no acute distress Head exam: PRESENT: normocephalic Eye exam: PRESENT: EOMI Respiratory exam: PRESENT: clear to auscultation linh, unlabored Extremities exam: ABSENT: pedal edema Neurological exam: PRESENT: alert, awake Psychiatric exam: PRESENT: appropriate affect Skin exam: PRESENT: normal color Results Laboratory Results: 11/09/19 17:36 11/09/19 05:30 11/09/19 11/09/19 11/09/19 17:32 17:36 18:15 WBC 22.5 H RBC 3.83 Hgb 12.1 Hct 35.0 L MCV 91 MCH 31.5 MCHC 34.5 RDW 13.4 Plt Count 292 Seg Neutrophils % Not Reportable Urine Color YELLOW Urine Appearance CLEAR Urine pH 6.0 Ur Specific [place] 1.015 Urine Protein NEGATIVE Urine Glucose (UA) NEGATIVE Urine Ketones NEGATIVE Urine Blood NEGATIVE Urine Nitrite NEGATIVE Ur Leukocyte Esterase TRACE H Urine WBC (Auto) 1 Urine RBC (Auto) 1 Stool Occult Blood NEGATIVE 11/08/19 11/08/19 14:15 14:15 Creatine Kinase 78 Troponin I < 0.012 Impressions: Chest X-Ray 11/08/19 13:51 IMPRESSION: Persistent left perihilar mass with new increased opacification in the right mid lung and left costophrenic angle. These findings could represent worsening infection/consolidation or underlying malignancy. Chest/Abdomen CTA 11/08/19 15:22 IMPRESSION: No gross CT angio evidence of acute pulmonary emboli. No thoracic aortic dissection Progression of mediastinal and left hilar adenopathy since 09/17/2019 New trace pericardial effusion New airspace disease left posterior costophrenic sulcus Assessment & Plan - Diagnosis (1) Acute respiratory failure with hypoxemia Is this a current diagnosis for this admission?: Yes Plan: Improving. (2) Cigarette nicotine dependence Qualifiers: Substance use status: uncomplicated Qualified Code(s): F17.210 - Nicotine dependence, cigarettes, uncomplicated Is this a current diagnosis for this admission?: Yes (3) Mass of hilum Is this a current diagnosis for this admission?: Yes Plan: I have discussed with Dr. Chapman and also spoke with Dr. Jonathon Nixon at [facility] today. Further bronchoscopy/biopsies are not possible here at [place]. Transfer to [facility] would need to take place. However, if patient is stable, may be discharged home. Outpatient bronchoscopy has been arranged on Nov 24 at [address] Nixon as outpatient. However, she will need a COVID-19 test resulted within 3 days prior to this procedure. Rapid test would need to be done on . I am not sure if this can be arranged through the hospital. (4) Pulmonary embolus, left Is this a current diagnosis for this admission?: Yes Plan: Continue anticoagulation with either Eliquis or Lovenox. Both can be stopped 24-48 hours prior to a procedure. - Time Time Spent with patient: 15-24 minutes
--- NOTE | 2019-11-10 13:02 | PDOC CONSULTATION ---
Consultation Consult Date: 11/10/19 Attending physician:: ARMAND GOMEZ Provider Consulted: STEVAN HI Consult reason:: mass of L lung History of Present Illness Admission Date/PCP: 11/08/19 20:41 History of Present Illness: LUCIANA RAMIREZ is a 58 year old [id number] female presented with shortness of breath and was found to have a left lower lobe infiltrate she was subsequently admitted. Has had a protracted history where she has been diagnosed with a lung mass in [place] however after having a bronchoscopy the was no diagnosis he subsequently has come to [place] and is been a [facility] where she was diagnosed with a PE. She is also going to [facility] for shortness of breath. She is her last admission was at this institution where she was profoundly hypoxic and she did have a lung mass however to be bronched that she would have had to submit to the possible intubation which she did not want any parts of. She unfortunately continues to smoke. She denies fever chills nausea vomiting or diarrhea. Past Medical History Cardiac Medical History: Reports: Pulmonary Embolism Denies: Coronary Artery Disease, Myocardial Infarction, Hypertension Pulmonary Medical History: Reports: Asthma, Chronic Obstructive Pulmonary Disease (COPD) Denies: Bronchitis, Pneumonia Neurological Medical History: Denies: Seizures Endocrine Medical History: Denies: Diabetes Mellitus Type 2 Renal/ Medical History: Denies: Chronic Kidney Disease, End Stage Renal Disease GI Medical History: Denies: Crohn's Disease, Ulcerative Colitis Musculoskeltal Medical History: Denies: Arthritis Skin Medical History: Denies: Eczema Psychiatric Medical History: Reports: Depression Traumatic Medical History: Denies: Pneumothorax, Stab Wound Hematology: Denies: Anemia Infectious Medical History: Denies: Methicillin-Resistant Staph Aureus Past Surgical History Past Surgical History: Reports: Section Denies: Hysterectomy, Pacemaker Social History Information Source: [facility], [facility] Smoking Status: Current Every Day Smoker Cigarettes Packs Per Day: 0.5 Number of Years Smokin Last Time Smoked: 11/08/2019 Passive smoke exposure as: Both Frequency of Alcohol Use: None Hx Recreational Drug Use: No Drugs: None Hx Prescription Drug Abuse: No Do you have pets?: Yes Have you had any respiratory illnesses as a child?: No Have you been exposed to any sick contacts recently?: No Have you had any recent respiratory illnesses?: Yes Have you travelled outside of [place] in the past 12 months?: No Family History Family History: COPD, Hypertension, Malignancy - Breast cancer mother Parental Family History Reviewed: Yes Children Family History Reviewed: Yes Sibling(s) Family History Reviewed.: Yes Medication/Allergy Home Medications: Albuterol Sulfate [Ventolin 0.083% Neb 2.5 mg/3 mL Ampul] 1 vial NEB Q4HP PRN 09/16/19 Budesonide/Formoterol Fumarate [Symbicort HFA 160-4.5 mcg Inhaler 6 gm] 2 puff IH Q12 09/16/19 Fluoxetine HCl 20 mg PO QHS 09/16/19 Ipratropium [place] [Atrovent 0.02% Neb 0.5 mg/2.5 ml Ampul] 0.5 mg NEB BID 09/16/19 Oxycodone HCl/Acetaminophen [Percocet 5-325 mg Tablet] 1 tab PO Q6HP PRN 09/16/19 Rivaroxaban [Xarelto 10 mg Tablet] 20 mg PO WSUPPER 09/16/19 Lidocaine [Lidoderm 5% (700 mg) Transdermal Patch] 1 patch TP DAILY #14 09/21/19 Allergies/Adverse Reactions: No Known Allergies Allergy (Verified 09/16/17 08:30) Review of Systems All systems: reviewed and no additional remarkable complaints except as stated Physical Exam Vital Signs: Temp Pulse Resp BP Pulse Ox 97.4 F 94 15 117/68 97 11/10/19 10:00 11/10/19 08:05 11/10/19 08:05 11/10/19 07:53 11/10/19 08:05 Pulse Oximeter Continuous Start: 11/09/19 16:25 Freq: RTQ4 Status: Active Protocol: Document 11/10/19 08:05 [facility] (Rec: 11/10/19 08:15 [facility] [id number]) Pulse Oximetry Assessment Oxygen Saturation (92-100) 97 Oxygen Flow Rate (L/min) 3 Oxygen Delivery Method Nasal Cannula Fraction of Inspired Oxygen (FIO2) 32 Equipment Usage Equipment in Use Continuous SpO2 Machine # 4 Intake & Output 11/09/19 11/10/19 11/11/19 06:59 06:59 06:59 Intake Total 1250 1342 98 Output Total 0 1500 Balance 1250 -158 98 Weight 48.8 kg 47.7 kg General appearance: PRESENT: no acute distress, cooperative, disheveled, thin, well-developed Head exam: PRESENT: atraumatic, normocephalic Eye exam: PRESENT: conjunctiva pale, EOMI. ABSENT: nystagmus, periorbital swelling, scleral icterus Mouth exam: ABSENT: dry mucosa, neck supple, tongue midline Neck exam: ABSENT: carotid bruit, full ROM, JVD, lymphadenopathy, meningismus, tenderness, thyromegaly, tracheal deviation, tracheostomy, other Respiratory exam: PRESENT: decreased breath sounds, prolonged expiratory phas, rales, rhonchi, unlabored, wheezes. ABSENT: retraction, stridor, tachypnea Cardiovascular exam: PRESENT: RRR, +S2, tachycardia Pulses: PRESENT: normal radial pulses GI/Abdominal exam: PRESENT: soft. ABSENT: distended, guarding, mass, rebound, tenderness Extremities exam: PRESENT: full ROM. ABSENT: calf tenderness, clubbing, joint swelling, pedal edema, tenderness Musculoskeletal exam: PRESENT: full ROM. ABSENT: deformity, dislocation Neurological exam: PRESENT: altered Psychiatric exam: PRESENT: depressed Skin exam: PRESENT: dry, warm Results Laboratory Results: 11/09/19 17:36 11/09/19 05:30 11/09/19 11/09/19 11/09/19 17:32 17:36 18:15 WBC 22.5 H RBC 3.83 Hgb 12.1 Hct 35.0 L MCV 91 MCH 31.5 MCHC 34.5 RDW 13.4 Plt Count 292 Seg Neutrophils % Not Reportable Urine Color YELLOW Urine Appearance CLEAR Urine pH 6.0 Ur Specific [place] 1.015 Urine Protein NEGATIVE Urine Glucose (UA) NEGATIVE Urine Ketones NEGATIVE Urine Blood NEGATIVE Urine Nitrite NEGATIVE Ur Leukocyte Esterase TRACE H Urine WBC (Auto) 1 Urine RBC (Auto) 1 Stool Occult Blood NEGATIVE 11/08/19 11/08/19 14:15 14:15 Creatine Kinase 78 Troponin I < 0.012 Impressions: Chest X-Ray 11/08/19 13:51 IMPRESSION: Persistent left perihilar mass with new increased opacification in the right mid lung and left costophrenic angle. These findings could represent worsening infection/consolidation or underlying malignancy. Chest/Abdomen CTA 11/08/19 15:22 IMPRESSION: No gross CT angio evidence of acute pulmonary emboli. No thoracic aortic dissection Progression of mediastinal and left hilar adenopathy since 09/17/2019 New trace pericardial effusion New airspace disease left posterior costophrenic sulcus Assessment & Plan - Diagnosis (1) Tobacco abuse Is this a current diagnosis for this admission?: Yes Plan: She continues to smoke will add transdermal nicotine patch (2) Chronic anticoagulation Is this a current diagnosis for this admission?: Yes Plan: Patient has been placed on heparin drip as a bridge prior to biopsy patient's anticoagulation for pulmonary embolus that was discovered in August 2019 (3) Mass of hilum Is this a current diagnosis for this admission?: Yes Plan: reviewed again the CT scan with radiology for CT-guided needle biopsy. If this is not successful or they feel he cannot take it the patient is willing to take the risk of possible intubation and I will proceed with bronchoscopy (4) Postobstructive pneumonia Is this a current diagnosis for this admission?: Yes Plan: Continue current antibiotic therapy - Time Time Spent with patient: 55 min Time Spent: 50 to 70 Minutes
--- NOTE | 2019-11-10 15:15 | RADIOLOGY REPORT (SQ) ---
EXAM DESCRIPTION: CT HEAD WITHOUT IMAGES COMPLETED DATE/TIME: 11/10/2019 3:01 pm REASON FOR STUDY: abn mental status//lung mass COMPARISON: 11/08/2019. TECHNIQUE: Axial images acquired through the brain without intravenous contrast. Images reviewed wi th bone, brain and subdural windows. Additional sagittal and coronal reconstructions were generated. Images stored on PACS. All CT scanners at this facility use dose modulation, iterative reconstruction, and/or weight based d osing when appropriate to reduce radiation dose to as low as reasonably achievable (ALARA). [facility]: Dose Right [facility]: CareDose [facility]: Dose Right [facility]: Teradose 4D [facility]: Landis+Gyr RADIATION DOSE: CT Rad equipment meets quality standard of care and radiation dose reduction techniq ues were employed. CTDIvol: 48.6 mGy. DLP: 880 mGy-cm. mGy. LIMITATIONS: None. FINDINGS: VENTRICLES: Normal size and contour. CEREBRUM: No masses. No hemorrhage. No midline shift. No evidence for acute infarction. Normal gra y/white matter differentiation. No areas of low density in the white matter. CEREBELLUM: No masses. No hemorrhage. No alteration of density. No evidence for acute infarction. EXTRAAXIAL SPACES: No fluid collections. No masses. ORBITS AND GLOBE: No intra- or extraconal masses. Normal contour of globe without masses. CALVARIUM: No fracture. PARANASAL SINUSES: No fluid or mucosal thickening. SOFT TISSUES: No mass or hematoma. OTHER: No other significant finding. IMPRESSION: NORMAL BRAIN CT WITHOUT CONTRAST. EVIDENCE OF ACUTE STROKE: NO. COMMENT: Quality ID # [id number]: Final reports with documentation of one or more dose reduction techniques (e.g., Automated exposure control, adjustment of the mA and/or kV according to patient size, use of iterative reconstruction technique) TECHNICAL DOCUMENTATION: JOB ID: [id number] 2010 [employer]- All Rights Reserved Reading location - IP/workstation name: [email or web address]
--- NOTE | 2019-11-10 17:07 | PDOC PROGRESS REPORT ---
Subjective Subjective:: Patient admitted for newly found lung mass of unknown cell type. Oncology consulted and I discussed the case with them, recommended patient be transferred to outside hospital [facility] where Dr. pichardo can perform biopsy of lung mass. I contacted this hospital and they refused to discuss the case as they are at capacity and not accepting any non-emergency cases. They stated they did not know when they would have the ability to take outside transfers but it would not be anytime soon as they have been like this for some time now. We will treat the patient's pneumonia here and get her well enough for outpatient follow-up. I recommend that if she becomes acutely ill and would be able to make the drive to the outside hospital, it may be best if she goes there through the ER as this may facilitate her biopsy getting done. Also of note, nursing has seen the patient closed up in her bathroom with smoke coming out from under the door, patient denied smoking but the room reeked of tobacco smoke reportedly. Patient also left the floor without telling her nurse and went outside with her , noted to be unsteady on her feet with low oxygen saturation. Nursing educated patient. Other than RENTERIA, anxiety, and chronic generalized back pain, patient has no new complaints today. 11/10/2019 Patient seems to be more stable today from a respiratory perspective unfortunately she is started having some hemoptysis and her heparin drip had to be stopped. This will be on hold until further notice. We are all waiting on pulmonology and radiology to decide home if anyone will perform the next biopsy on her lung mass. Patient prefers to not be discharged until this is completed as she will likely continue to get postobstructive pneumonias to be readmitted in the future. It would be helpful to know what cell type is in her mass and we can consult oncology to treated at that point if the patient chooses. I discussed with the patient that she cannot smoke in her room she initially denied it but then seemed to agree that she understood this rule. Other than previously mentioned, she has no new complaints today. Reason For Visit: ACUTE RESPIRATORY FAILURE WITH HYPOXIA, Physical Exam Vital Signs: Temp Pulse Resp BP Pulse Ox 97.4 F 97 16 117/68 94 11/10/19 10:00 11/10/19 14:00 11/10/19 13:59 11/10/19 07:53 09/01/20 13:59 Pulse Oximeter Continuous Start: 11/09/19 16:25 Freq: RTQ4 Status: Active Protocol: Document 11/10/19 13:59 [facility] (Rec: 11/10/19 14:17 [facility] [id number]) Pulse Oximetry Assessment Oxygen Saturation (92-100) 94 Oxygen Delivery Method Room Air Fraction of Inspired Oxygen (FIO2) 21 Equipment Usage Equipment in Use Continuous SpO2 Machine # 4 Intake & Output 11/09/19 11/10/19 11/11/19 06:59 06:59 06:59 Intake Total 1250 1342 151 Output Total 0 1500 Balance 1250 -158 151 Weight 48.8 kg 47.7 kg Exam: General appearance: PRESENT: no acute distress, well-developed, well-nourished, states she does not smoke in the room Head exam: PRESENT: atraumatic, normocephalic Eye exam: PRESENT: conjunctiva pink Mouth exam: PRESENT: moist Respiratory exam: PRESENT: wheezes - Mild. ABSENT: rales, rhonchi Cardiovascular exam: PRESENT: RRR. ABSENT: diastolic murmur, rubs, systolic murmur GI/Abdominal exam: PRESENT: normal bowel sounds, soft. ABSENT: distended, guarding, mass, organolmegaly, rebound, tenderness Neurological exam: PRESENT: alert, awake, oriented to person, oriented to place, oriented to time, oriented to situation Psychiatric exam: PRESENT: Mildly anxious Skin exam: PRESENT: dry, intact, warm Results Laboratory Results: 11/09/19 17:36 11/09/19 05:30 11/09/19 11/09/19 11/09/19 17:32 17:36 18:15 WBC 22.5 H RBC 3.83 Hgb 12.1 Hct 35.0 L MCV 91 MCH 31.5 MCHC 34.5 RDW 13.4 Plt Count 292 Seg Neutrophils % Not Reportable Urine Color YELLOW Urine Appearance CLEAR Urine pH 6.0 Ur Specific [place] 1.015 Urine Protein NEGATIVE Urine Glucose (UA) NEGATIVE Urine Ketones NEGATIVE Urine Blood NEGATIVE Urine Nitrite NEGATIVE Ur Leukocyte Esterase TRACE H Urine WBC (Auto) 1 Urine RBC (Auto) 1 Stool Occult Blood NEGATIVE 11/08/19 11/08/19 14:15 14:15 Creatine Kinase 78 Troponin I < 0.012 Impressions: Chest X-Ray 11/08/19 13:51 IMPRESSION: Persistent left perihilar mass with new increased opacification in the right mid lung and left costophrenic angle. These findings could represent worsening infection/consolidation or underlying malignancy. Chest/Abdomen CTA 11/08/19 15:22 IMPRESSION: No gross CT angio evidence of acute pulmonary emboli. No thoracic aortic dissection Progression of mediastinal and left hilar adenopathy since 09/17/2019 New trace pericardial effusion New airspace disease left posterior costophrenic sulcus Head CT 11/10/19 00:00 IMPRESSION: NORMAL BRAIN CT WITHOUT CONTRAST. EVIDENCE OF ACUTE STROKE: NO. Assessment and Plan - Diagnosis (1) Mass of hilum Is this a current diagnosis for this admission?: Yes Plan: Per admitting physician: "Persistent hilar mass with postobstructive pneumonia. Most likely malignant given history of heavy tobacco abuse. Lung biopsy in [place] beginning of this year turned out to be negative. Needs repeat of biopsy. Patient has been followed by Dr. Rowe access analyst and is in the process of getting CT-guided biopsy however as per patient she has been having difficulty due to financial reasons. We will consult oncology and hopefully they can expedite CT-guided lung biopsy on this admission. Currently on oral anticoagulation for history of PE will switch to weight-based low molecular weight heparin in anticipation for possible biopsy." Contacted [facility] for transfer to have biopsy done by Dr. pichardo, they are at full capacity and refused to even discuss the possibility of transfer Pulmonology Dr. Rowe consulted and he will discuss whether he will do a bronchoscopy with biopsy or peripheral biopsy will be done by radiology Oncology consulted Causing recurrent postobstructive pneumonia (2) Postobstructive pneumonia Is this a current diagnosis for this admission?: Yes Plan: Recently discharged from outside hospital on Flagyl and Bactrim, respiratory cultures were growing Serratia marcescens Empiric cefepime continued Blood cultures negative Needs underlying lung mass treated (3) Acute respiratory failure with hypoxemia Is this a current diagnosis for this admission?: Yes (4) COPD (chronic obstructive pulmonary disease) with emphysema Qualifiers: Emphysema type: panlobular Qualified Code(s): J43.1 - Panlobular emphysema Is this a current diagnosis for this admission?: Yes (5) Tobacco abuse Is this a current diagnosis for this admission?: Yes (6) Chronic anticoagulation Is this a current diagnosis for this admission?: Yes (7) Pulmonary embolus, left Is this a current diagnosis for this admission?: Yes Plan: History of PE on chronic anticoagulation. Likely due to underlying malignancy. Recent CTPA did not show PE anymore Repeat CTA negative for PE however given possibility of malignancy will need to continue anticoagulation outpatient. Heparin drip started in anticipation of biopsy however she developed hemoptysis and this had to be stopped - Time Time Spent with patient: 15-24 minutes Medications reviewed and adjusted accordingly: Yes Anticipated Discharge Disposition: Home, Self Care Anticipated Discharge Timeframe: within 72 hours - Inpatient Certification Based on my medical assessment, after consideration of the patient's comorbidities, presenting symptoms, or acuity I expect that the services needed warrant INPATIENT care.: Yes I certify that my determination is in accordance with my understanding of Medicare's requirements for reasonable and necessary INPATIENT services [42 CFR 412.3e].: Yes Medical Necessity: Significant Comorbidiites Make Outpatient Treatment Too Risky, Need Close Monitoring Due to Risk of Patient Decompensation, Need for IV Antibiotics, Risk of Complication if Not Cared For in Hospital, Risk of Diagnosis Which Will Require Inpatient Eval/Care/Monitoring
[2019-11-11] MEDS: MORPHINE SULFATE 10 MG/ML INJ IV PRN ×3 (02:49→11:58)
[2019-11-11 05:13] LABS: HEMATOCRIT 35.7 % (36.0-47.0); HEMOGLOBIN 11.9 g/dL (12.0-15.5); MEAN CORPUSCULAR HEMOGLOBIN 30.8 pg (27.0-33.4); MEAN CORPUSCULAR HGB CONC 33.4 g/dL (32.0-36.0); MEAN CORPUSCULAR VOLUME 92 fl (80-97); PLATELET COUNT 320 10^3/uL (150-450); RED BLOOD COUNT 3.87 10^6/uL (3.72-5.28); RED CELL DISTRIBUTION WIDTH 13.4 % (11.5-14.0); WHITE BLOOD COUNT 16.7 10^3/uL (4.0-10.5)
[2019-11-11] MEDS: METHYLPREDNISOLONE INJ 40 MG/1 ML SDV IV SCH ×2 (05:23→15:33)
[2019-11-11] MEDS: IPRATROPIUM/ALBUTEROL 0.5-2.5 MG/3 ML AMPUL NEB SCH ×2 (08:34→13:28)
[2019-11-11 08:35] LABS: APPEARANCE,URINE CLEAR; BILIRUBIN,URINE NEGATIVE (NEGATIVE); COLOR,URINE YELLOW; GLUCOSE, URINE NEGATIVE (NEGATIVE); KETONES,URINE NEGATIVE (NEGATIVE); LEUKOCYTE ESTERASE,URINE NEGATIVE (NEGATIVE); NITRITE,URINE NEGATIVE (NEGATIVE); PROTEIN,URINE NEGATIVE (NEGATIVE); URINE SPECIFIC GRAVITY 1.015; UROBILINOGEN,URINE NEGATIVE mg/dL (<2.0)
--- NOTE | 2019-11-11 08:47 | PDOC PROGRESS REPORT ---
Subjective Progress Note for:: 11/11/19 Subjective:: Patient feeling much better. She is up in room walking, without oxygen and without dyspnea. She is anxious to go home. Reason For Visit: ACUTE RESPIRATORY FAILURE WITH HYPOXIA, Physical Exam Vital Signs: Temp Pulse Resp BP Pulse Ox 97.6 F 86 17 145/90 H 93 11/10/19 23:15 11/11/19 02:00 11/10/19 23:15 11/10/19 23:15 11/11/19 04:12 Pulse Oximeter Continuous Start: 11/09/19 16:25 Freq: RTQ4 Status: Active Protocol: Document 11/11/19 04:12 [facility] (Rec: 11/11/19 06:57 DBE [id number]) Pulse Oximetry Assessment Oxygen Saturation (92-100) 93 Fraction of Inspired Oxygen (FIO2) 21 Equipment Usage Equipment in Use Continuous Pulse Oximeter 24 Hour Charge Charge Now Continuous SpO2 Machine # 4 Intake & Output 11/10/19 11/11/19 11/12/19 06:59 06:59 06:59 Intake Total 1342 1371 Output Total 1500 1400 Balance -158 -29 Weight 47.7 kg 46.4 kg General appearance: PRESENT: thin Head exam: PRESENT: normocephalic Respiratory exam: PRESENT: unlabored Musculoskeletal exam: PRESENT: ambulatory Neurological exam: PRESENT: alert, awake Skin exam: PRESENT: normal color Results Laboratory Results: 11/11/19 04:18 11/09/19 05:30 11/11/19 11/11/19 04:18 07:55 WBC 16.7 H RBC 3.87 Hgb 11.9 L Hct 35.7 L MCV 92 MCH 30.8 MCHC 33.4 RDW 13.4 Plt Count 320 Urine Color YELLOW Urine Appearance CLEAR Urine pH 7.0 Ur Specific [place] 1.015 Urine Protein NEGATIVE Urine Glucose (UA) NEGATIVE Urine Ketones NEGATIVE Urine Blood NEGATIVE Urine Nitrite NEGATIVE Ur Leukocyte Esterase NEGATIVE Urine WBC (Auto) 0 Urine RBC (Auto) 1 11/08/19 11/08/19 14:15 14:15 Creatine Kinase 78 Troponin I < 0.012 Impressions: Chest X-Ray 11/08/19 13:51 IMPRESSION: Persistent left perihilar mass with new increased opacification in the right mid lung and left costophrenic angle. These findings could represent worsening infection/consolidation or underlying malignancy. Chest/Abdomen CTA 11/08/19 15:22 IMPRESSION: No gross CT angio evidence of acute pulmonary emboli. No thoracic aortic dissection Progression of mediastinal and left hilar adenopathy since 09/17/2019 New trace pericardial effusion New airspace disease left posterior costophrenic sulcus Head CT 11/10/19 00:00 IMPRESSION: NORMAL BRAIN CT WITHOUT CONTRAST. EVIDENCE OF ACUTE STROKE: NO. Assessment & Plan - Diagnosis (1) Acute respiratory failure with hypoxemia Is this a current diagnosis for this admission?: Yes Plan: Much improved. She needs to stop smoking. (2) Cigarette nicotine dependence Qualifiers: Substance use status: uncomplicated Qualified Code(s): F17.210 - Nicotine dependence, cigarettes, uncomplicated Is this a current diagnosis for this admission?: Yes (3) Mass of hilum Is this a current diagnosis for this admission?: Yes Plan: I explained to the patient that Dr. Rowe has arranged for her to have an out patient bronchoscopy with Dr. Nixon at [facility] on 11/25/2019 at 2 pm. In terventional radiology here does not believe it is safe to perform a biopsy. However, she will need a rapid COVID-19 test performed within 72 hours of this procedure. If this can be arranged, she can be discharged today and outpatient follow-up as above. I discussed this with Dr. Chapman. (4) Pulmonary embolus, left Is this a current diagnosis for this admission?: Yes - Time Time Spent with patient: 15-24 minutes
[2019-11-11] MEDS: FAMOTIDINE 20 MG TABLET PO SCH (09:47)
[2019-11-11] MEDS: FLUOXETINE HCL 20 MG CAPSULE PO SCH (09:48)
[2019-11-11] MEDS: DOCUSATE SODIUM 100 MG CAPSULE PO SCH (09:49)
[2019-11-11] MEDS: CEFEPIME 1 GM/D5W RTU 1 GM/50 ML RTUPB IV SCH (09:49)
[2019-11-11] MEDS: LIDOCAINE 5% (700 MG) TRANSDERMAL ADH..PATCH TP SCH (09:50)
[2019-11-11] MEDS: NICOTINE 14 MG/24 HR PATCH.TD24 TD SCH (09:50)
[2019-11-11] MEDS: MEGESTROL ACETATE 20 MG TABLET PO SCH (09:50)
[2019-11-11] MEDS: FLUTICASONE/UMECLIDIN/VILANTER 100-62.5-25 MCG/DOSE IH SCH (09:52)
[2019-11-11 15:28] VITALS: BP 124/84
--- NOTE | 2019-11-11 18:51 | PDOC DISCHARGE SUMMARY ---
Impression - Admit/DC Date/PCP Admission Date/Primary Care Provider: 11/08/19 20:41 Discharge Date: 11/11/19 - Discharge Diagnosis (1) Mass of hilum Is this a current diagnosis for this admission?: Yes (2) Postobstructive pneumonia Is this a current diagnosis for this admission?: Yes (3) Acute respiratory failure with hypoxemia Is this a current diagnosis for this admission?: Yes (4) COPD (chronic obstructive pulmonary disease) with emphysema Is this a current diagnosis for this admission?: Yes (5) Tobacco abuse Is this a current diagnosis for this admission?: Yes (6) Chronic anticoagulation Is this a current diagnosis for this admission?: Yes (7) Pulmonary embolus, left Is this a current diagnosis for this admission?: Yes - Additional Information Discharge Diet: As Tolerated Discharge Activity: Activity As Tolerated, Balance Activity w/Rest Referrals: DR. HUERTA,[facility] [Other] - 11/25/19 2:00 pm (PATIENT MUST BE COVID TESTED 72 HOURS PRIOR TO PROCEDURE.) Prescriptions: Cyclobenzaprine HCl [Flexeril 10 mg Tablet] 5 mg PO TIDP PRN #10 tab PRN Reason: back pain, muscle spasms Levofloxacin [Levaquin 750 mg Tablet] 750 mg PO DAILY #4 tablet Nicotine [Nicoderm 21 mg/24 Hr Transderm Patch] 1 each TD DAILYP PRN #30 patch.td24 PRN Reason: Home Medications: Albuterol Sulfate [Ventolin 0.083% Neb 2.5 mg/3 mL Ampul] 1 vial NEB Q4HP PRN 09/16/19 Budesonide/Formoterol Fumarate [Symbicort HFA 160-4.5 mcg Inhaler 6 gm] 2 puff IH Q12 09/16/19 Fluoxetine HCl 20 mg PO QHS 09/16/19 Ipratropium [place] [Atrovent 0.02% Neb 0.5 mg/2.5 ml Ampul] 0.5 mg NEB BID 09/16/19 Oxycodone HCl/Acetaminophen [Percocet 5-325 mg Tablet] 1 tab PO Q6HP PRN 09/16/19 Rivaroxaban [Xarelto 10 mg Tablet] 20 mg PO WSUPPER 09/16/19 Lidocaine [Lidoderm 5% (700 mg) Transdermal Patch] 1 patch TP DAILY #14 09/21/19 Cyclobenzaprine HCl [Flexeril 10 mg Tablet] 5 mg PO TIDP PRN #10 tab 11/11/19 Levofloxacin [Levaquin 750 mg Tablet] 750 mg PO DAILY #4 tablet 11/11/19 Nicotine [Nicoderm 21 mg/24 Hr Transderm Patch] 1 each TD DAILYP PRN #30 patch.td24 11/11/19 History of Present Illiness History of Present Illness: Per Admitting Physician: "LUCIANA RAMIREZ is a 58 year old female past medical history of heavy tobacco abuse, COPD, postobstructive pneumonia, PE on chronic anticoagulation, left lung mass status post biopsy in [place] which turned out to be benign. Patient was recently admitted at [facility] for evaluation of shortness of breath, hemoptysis, lung mass, postobstructive pneumonia, and was discharged on metronidazole and Bactrim and was advised to follow-up with her residential designer Dr. Rowe. As per patient her residential designer is trying to get her to have a CT-guided left lung biopsy however due to insurance problems and has not been done yet. Patient is presenting to ED complaining of worsening shortness of breath and left-sided chest pain that radiates to her left back and flank. Chest pain is sharp, radiating to left flank and back, worse with breathing and movement, better with rest, patient denies any orthopnea, paroxysmal nocturnal dyspnea, hemoptysis, hematemesis, fever, chills, nausea, vomiting, diarrhea, constipation or any urinary symptoms. In ED she was noted to be tachypneic, tachycardic, ABG showed mild hypoxia and repeat CTA was negative for any PE however showed persistent hilar lymphadenopathy, left lower lobe infectious process possibly postobstructive pneumonia." Hospital Course Hospital Course: Patient admitted for newly found lung mass of unknown cell type. Oncology consulted and I discussed the case with them, recommended patient be transferred to outside hospital [facility] where Dr. huerta can perform biopsy of lung mass. I contacted this hospital and they refused to discuss the case as they are at capacity and not accepting any non-emergency cases. They stated they did not know when they would have the ability to take outside transfers but it would not be anytime soon as they have been like this for some time now. We will treat the patient's pneumonia here and get her well enough for outpatient follow-up. I recommend that if she becomes acutely ill and would be able to make the drive to the outside hospital, it may be best if she goes there through the ER as this may facilitate her biopsy getting done. Also of note, nursing has seen the patient closed up in her bathroom with smoke coming out from under the door, patient denied smoking but the room reeked of tobacco smoke reportedly. Patient also left the floor without telling her nurse and went outside with her , noted to be unsteady on her feet with low oxygen saturation. Nursing educated patient. Other than RENTERIA, anxiety, and chronic generalized back pain, patient has no new complaints today. 11/10/2019 Patient seems to be more stable today from a respiratory perspective unfortunately she is started having some hemoptysis and her heparin drip had to be stopped. This will be on hold until further notice. We are all waiting on pulmonology and radiology to decide home if anyone will perform the next biopsy on her lung mass. Patient prefers to not be discharged until this is completed as she will likely continue to get postobstructive pneumonias to be readmitted in the future. It would be helpful to know what cell type is in her mass and we can consult oncology to treated at that point if the patient chooses. I discussed with the patient that she cannot smoke in her room she initially denied it but then seemed to agree that she understood this rule. Other than previously mentioned, she has no new complaints today 11/11/2019 Patient feels stable overall but having some left low back muscle spasms and I have prescribed her some Flexeril. She would like to be discharged home and is anxious to leave the hospital. She has a follow-up appointment for her biopsy of her hilar mass at [facility] on 11/24 and she will have a COVID-19 test done within 3 days prior to this procedure. This is all been arranged by her oncologist Dr. Burgess. She will not be able to have any of her procedures/biopsies done at this facility according to Dr. Burgess. All consultants are in agreement the patient can be discharged home today. She will be given a short course of Levaquin to complete her antibiotics and she has the full understanding that her pneumonia is likely to recur until the hilar lung mass is treated and she no longer has postobstructive pneumonias. She will continue on her home Xarelto dose for PE she was diagnosed with previously even though PE was resolved on recent CTPA she is high likelihood to get recurrent PE in the setting of suspected malignancy. She understands that she will need to stop her Xarelto at least 24 hours prior to her biopsy. Physical Exam Vital Signs: Temp Pulse Resp BP Pulse Ox 98.0 F 82 16 124/84 92 11/11/19 15:28 11/11/19 15:28 11/11/19 15:28 11/11/19 15:28 11/11/19 15:28 Pulse Oximeter Continuous Start: 11/09/19 16:25 Freq: RTQ4 Status: Complete Protocol: Document 11/11/19 14:00 LDA (Rec: 11/11/19 14:00 LDA [email or web address]) Pulse Oximetry Assessment Equipment Usage Equipment Discontinued Continuous SpO2 Machine # 4 Intake & Output 11/10/19 11/11/19 11/12/19 06:59 06:59 06:59 Intake Total 1342 1371 985 Output Total 1500 1400 Balance -158 -29 985 Weight 47.7 kg 46.4 kg 46.7 kg Exam: General appearance: PRESENT: no acute distress, well-developed, well-nourished, states she feels pretty good and wants to go home Head exam: PRESENT: atraumatic, normocephalic Eye exam: PRESENT: conjunctiva pink Mouth exam: PRESENT: moist Respiratory exam: PRESENT: wheezes - Mild. ABSENT: rales, rhonchi Cardiovascular exam: PRESENT: RRR. ABSENT: diastolic murmur, rubs, systolic murmur GI/Abdominal exam: PRESENT: normal bowel sounds, soft. ABSENT: distended, guarding, mass, organolmegaly, rebound, tenderness Neurological exam: PRESENT: alert, awake, oriented to person, oriented to place, oriented to time, oriented to situation Psychiatric exam: PRESENT: Mildly anxious Skin exam: PRESENT: dry, intact, warm Results Laboratory Results: WBC 16.7 10^3/uL (4.0-10.5) H 11/11/19 04:18 RBC 3.87 10^6/uL (3.72-5.28) 11/11/19 04:18 Hgb 11.9 g/dL (12.0-15.5) L 11/11/19 04:18 Hct 35.7 % (36.0-47.0) L 11/11/19 04:18 MCV 92 fl (80-97) 11/11/19 04:18 MCH 30.8 pg (27.0-33.4) 11/11/19 04:18 MCHC 33.4 g/dL (32.0-36.0) 11/11/19 04:18 RDW 13.4 % (11.5-14.0) 11/11/19 04:18 Plt Count 320 10^3/uL (150-450) 11/11/19 04:18 Lymph % (Auto) Not Reportable 11/09/19 17:36 [place] % (Auto) Not Reportable 11/09/19 17:36 Eos % (Auto) Not Reportable 11/09/19 17:36 Baso % (Auto) Not Reportable 11/09/19 17:36 Absolute Neuts (auto) Not Reportable 11/09/19 17:36 Absolute Lymphs (auto) Not Reportable 11/09/19 17:36 Absolute Monos (auto) Not Reportable 11/09/19 17:36 Absolute Eos (auto) Not Reportable 11/09/19 17:36 Absolute Basos (auto) Not Reportable 11/09/19 17:36 Total Counted 100 11/09/19 17:36 Seg Neutrophils % Not Reportable 11/09/19 17:36 Seg Neuts % (Manual) 94 % (42-78) H 11/09/19 17:36 Band Neutrophils % 2 % (3-5) L 11/09/19 17:36 Lymphocytes % (Manual) 3 % (13-45) L 11/09/19 17:36 Monocytes % (Manual) 1 % (3-13) L 11/09/19 17:36 Eosinophils % (Manual) 0 % (0-6) 11/09/19 17:36 Basophils % (Manual) 0 % (0-2) 11/09/19 17:36 Abs Neuts (Manual) 21.6 10^3/uL (1.7-8.2) H 11/09/19 17:36 Abs Lymphs (Manual) 0.7 10^3/uL (0.5-4.7) 11/09/19 17:36 Abs Monocytes (Manual) 0.2 10^3/uL (0.1-1.4) 11/09/19 17:36 Absolute Eos (Manual) 0.0 10^3/uL (0.0-0.6) 11/09/19 17:36 Abs Basophils (Manual) 0.0 10^3/uL (0.0-0.2) 11/09/19 17:36 Clumped Platelets PRESENT 11/09/19 17:36 Platelet Comment ADEQUATE 11/09/19 17:36 RBC Morph Comment NORMO-CYTIC/CHROMIC 11/09/19 17:36 PT 14.6 SEC (11.4-15.4) 11/09/19 17:36 INR 1.12 11/09/19 17:36 APTT 49.0 SEC (23.5-35.8) H 11/10/19 14:26 Carbonic Acid 1.30 mmol/L (1.05-1.35) 11/08/19 20:25 HCO3/H2CO3 Ratio 18:1 11/08/19 20:25 ABG pH 7.36 (7.35-7.45) 11/08/19 20:25 ABG pCO2 43.3 mmHg (35-45) 11/08/19 20:25 ABG pO2 68.8 mmHg (80-100) L 11/08/19 20:25 ABG HCO3 24.1 mmol/L (20-24) H 11/08/19 20:25 ABG Total CO2 25.4 mmol/L (21-25) H 11/08/19 20:25 ABG O2 Saturation 93.2 % (94-98) L 11/08/19 20:25 ABG Base Excess -1.4 mmol/L 11/08/19 20:25 FiO2 3 L 11/08/19 20:25 Sodium 134.5 mmol/L (137-145) L 11/09/19 05:30 Potassium 4.4 mmol/L (3.6-5.0) 11/09/19 05:30 Chloride 100 mmol/L (98-107) 11/09/19 05:30 Carbon Dioxide 24 mmol/L (22-30) 11/09/19 05:30 Anion Gap 11 (5-19) 11/09/19 05:30 BUN 7 mg/dL (7-20) 11/09/19 05:30 Creatinine 0.43 mg/dL (0.52-1.25) L 11/09/19 05:30 Est GFR ( Amer) > 60 (>60) 11/09/19 05:30 Est GFR (MDRD) Non-Af > 60 (>60) 11/09/19 05:30 Glucose 145 mg/dL (75-110) H 11/09/19 05:30 Calcium 9.3 mg/dL (8.4-10.2) 11/09/19 05:30 Phosphorus 3.8 mg/dL (2.5-4.5) 11/09/19 05:30 Magnesium 2.2 mg/dL (1.6-2.3) 11/09/19 05:30 Total Bilirubin 0.8 mg/dL (0.2-1.3) 11/09/19 05:30 Direct Bilirubin 0.3 mg/dL (0.0-0.4) 11/09/19 05:30 Neonat Total Bilirubin Not Reportable 11/09/19 05:30 Neonat Direct Bilirubin Not Reportable 11/09/19 05:30 Neonat Indirect Bili Not Reportable 11/09/19 05:30 AST 23 U/L (14-36) 11/09/19 05:30 ALT 17 U/L (<35) 11/09/19 05:30 Alkaline Phosphatase 69 U/L (38-126) 11/09/19 05:30 Creatine Kinase 78 U/L (30-135) 11/08/19 14:15 Troponin I < 0.012 ng/mL 11/08/19 14:15 Total Protein 7.5 g/dL (6.3-8.2) 11/09/19 05:30 Albumin 4.3 g/dL (3.5-5.0) 11/09/19 05:30 Urine Color YELLOW 11/11/19 07:55 Urine Appearance CLEAR 11/11/19 07:55 Urine pH 7.0 (5.0-9.0) 11/11/19 07:55 Ur Specific [place] 1.015 11/11/19 07:55 Urine Protein NEGATIVE mg/dL (NEGATIVE) 11/11/19 07:55 Urine Glucose (UA) NEGATIVE mg/dL (NEGATIVE) 11/11/19 07:55 Urine Ketones NEGATIVE mg/dL (NEGATIVE) 11/11/19 07:55 Urine Blood NEGATIVE (NEGATIVE) 11/11/19 07:55 Urine Nitrite NEGATIVE (NEGATIVE) 11/11/19 07:55 Urine Bilirubin NEGATIVE (NEGATIVE) 11/11/19 07:55 Urine Urobilinogen NEGATIVE mg/dL (<2.0) 11/11/19 07:55 Ur Leukocyte Esterase NEGATIVE (NEGATIVE) 11/11/19 07:55 Urine WBC (Auto) 0 /HPF 11/11/19 07:55 Urine RBC (Auto) 1 /HPF 11/11/19 07:55 U Hyaline Cast (Auto) 1 /LPF 11/11/19 07:55 Squamous Epi Cells Auto <1 /HPF 11/11/19 07:55 Urine Mucus (Auto) RARE /LPF 11/11/19 07:55 Urine Ascorbic Acid NEGATIVE (NEGATIVE) 11/11/19 07:55 Stool Occult Blood NEGATIVE (NEGATIVE) 11/11/19 09:55 11/08/19 14:15 Troponin I < 0.012 Impressions: Chest X-Ray 11/08/19 13:51 IMPRESSION: Persistent left perihilar mass with new increased opacification in the right mid lung and left costophrenic angle. These findings could represent worsening infection/consolidation or underlying malignancy. Chest/Abdomen CTA 11/08/19 15:22 IMPRESSION: No gross CT angio evidence of acute pulmonary emboli. No thoracic aortic dissection Progression of mediastinal and left hilar adenopathy since 09/17/2019 New trace pericardial effusion New airspace disease left posterior costophrenic sulcus Head CT 11/10/19 00:00 IMPRESSION: NORMAL BRAIN CT WITHOUT CONTRAST. EVIDENCE OF ACUTE STROKE: NO. Plan Plan of Treatment: Follow-up with PCP Follow-up with pulmonology Follow-up for lung biopsy on 11/24, get COVID-19 test within 3 days prior to this Stop smoking Time Spent: Greater than 30 Minutes Stroke Is this a Stroke Patient?: No Acute Heart Failure - Is this a Heart Failure Patient?: No
== END 2019-11-11 16:10 | disposition home or self-care (01) | DRG 193 ==
LOC: ER 13:19 → EH 20:41 → 4N 11-09 00:51
PROVIDERS: ADMIT Internal Medicine; ATTEND Internal Medicine
PROC: 5A09457 Assistance with Respiratory Ventilation, 24-96 Consecutive Hours, Continuous Positive Airway Pressure (ICD-10-PCS; principal; 2019-11-08)
DX: J18.9 Pneumonia, unspecified organism (principal); J96.01 Acute respiratory failure with hypoxia; R64 Cachexia; Z68.1 Body mass index [BMI] 19.9 or less, adult; J43.1 Panlobular emphysema; R04.2 Hemoptysis; R91.8 Other nonspecific abnormal finding of lung field; Z86.711 Personal history of pulmonary embolism; Z79.01 Long term (current) use of anticoagulants; F17.210 Nicotine dependence, cigarettes, uncomplicated; D14.30 Benign neoplasm of unspecified bronchus and lung; F32.9 Major depressive disorder, single episode, unspecified; Z80.3 Family history of malignant neoplasm of breast; Z79.51 Long term (current) use of inhaled steroids; Z79.899 Other long term (current) drug therapy; Z91.19 Patient's noncompliance with other medical treatment and regimen
CPT/HCPCS: 36415; 36600; 70450; 71046; 71275; 80053; 81001; 82272; 82550; 82803; 83735; 84100; 84484; 85025; 85027; 85610; 85730; 87040; 93005; 93010; 94640; 94660; 94762; 96361; 96365; 96367; 96375; 96376; 99285; J0692; J0696; J1100; J1170; J1644; J2060; J2270; J2920; J2930; J3475; J3490; J7030; J7614

== ENCOUNTER → 2019-12-04 | Outpatient (CLI) | payer SELFPAY ==
--- NOTE | 2019-12-04 17:59 | RADIOLOGY REPORT (SQ) ---
EXAM DESCRIPTION: MRI HEAD COMBO IMAGES COMPLETED DATE/TIME: 12/04/2019 5:04 pm REASON FOR STUDY: C34.12 MALIGNANT NEOPLASM OF UPPER LOBE, LEFT BRONCHUS OR LUNG C34.12 MALIGNANT N EOPLASM OF UPPER LOBE, LEFT BRONCHUS OR PAUL COMPARISON: None. TECHNIQUE: Multiplanar imaging includes noncontrasted T1, T2, FLAIR, diffusion with ADC map and post gadolinium contrast T1 sequences. Images stored on PACS. CONTRAST TYPE AND DOSE: 10 mL Prohance. RENAL FUNCTION: Not indicated. ACR Type II contrast agent associated with few, if any, unconfounded cases of NSF LIMITATIONS: None. FINDINGS: ANATOMY: No anomalies. Normal vascular flow voids. Pituitary fossa normal. CSF SPACES: Normal in size and contour. No hemorrhage. CEREBRUM: Sulci and gyri normal in size and contour. Normal white matter signal on FLAIR imaging. No evidence of hemorrhage, mass, or extraaxial fluid collection. No abnormal enhancement post contrast. POSTERIOR FOSSA: No signal alteration. No hemorrhage. No edema, masses, or mass effect. Internal fransico tory canals, cerebellopontine angles, mastoids normal. No enhancing lesions. No abnormal enhancement post contrast. DIFFUSION IMAGING: Negative for acute or subacute infarction. ORBITS: No masses. Globes normal. PARANASAL SINUSES: No fluid levels. Mucosa normal. OTHER: No other significant finding. IMPRESSION: NORMAL MRI OF THE BRAIN WITHOUT AND WITH INTRAVENOUS GADOLINIUM CONTRAST. EVIDENCE OF ACUTE STROKE: NO. TECHNICAL DOCUMENTATION: JOB ID: [id number] 2010 [employer]- All Rights Reserved Reading location - IP/workstation name: [email or web address]
== END ==
LOC: RAD 15:55
PROVIDERS: ATTEND Internal Medicine Hematology & Oncology
DX: C34.12 Malignant neoplasm of upper lobe, left bronchus or lung (principal)
CPT/HCPCS: 82565; 70553; A9576

== ENCOUNTER → 2019-12-08 | Outpatient (CLI) | payer SELFPAY ==
--- NOTE | 2019-12-09 14:21 | RADIOLOGY REPORT (SQ) ---
EXAM DESCRIPTION: PET CT SKULL/THIGH IMAGES COMPLETED DATE/TIME: 12/08/2019 3:08 pm REASON FOR STUDY: C34.12 MALIGNANT NEOPLASM OF UPPER LOBE, LEFT BRONCHUS OR LUNG C34.12 MALIGNANT N EOPLASM OF UPPER LOBE, LEFT BRONCHUS OR PAUL COMPARISON: None. RADIONUCLIDE AND DOSE: 10.5 mCi F18 FDG The route of agent administration: Intravenous FASTING BLOOD SUGAR: 97 mg/dl CONTRAST TYPE AND DOSE: No CT contrast given. TECHNIQUE: Blood glucose level was verified. Above dose of FDG was injected intravenously. 2-D seg mented attenuation correction images were obtained from the base of the skull to the midthighs. Nonc ontrast CT images were obtained for attenuation correction and fusion with emission images. CT image s were performed without oral or intravenous contrast and are not sensitive for parenchymal lesions. A series of overlapping emission PET images were obtained. Images reviewed and manipulated at [facility] work station by the radiologist. Images stored on PACS. LIMITATIONS: None. FINDINGS: HEAD AND NECK: No areas of abnormal metabolic activity in the soft tissues of the head and neck. CHEST: 2 closely opposed hypermetabolic 1 L of nodes measuring 6.8 SUV and approximately 2.0 x 2.5 cm collectively. Hypermetabolic left 3A lymph nodes measuring 5.9 SUV and approximately 2.4 x 2.7 cm. Hypermetabolic 4L lymph nodes 8.5 SUV and approximately 3.6 x 3.3 cm image 84. Hypermetabolic level 10 L lymph nodes 9.7 SUV and approximately 4.0 x 4.5 cm although margins are ind istinct. Hypermetabolic pleural-based nodule left lower lobe on image 129 measuring 3.7 SUV and approximately 2.2 x 1.9 cm. ABDOMEN AND PELVIS: No areas of abnormal metabolic activity in the abdomen or pelvis. Expected physi ologic activity is present in the genitourinary system and bowel. PROXIMAL LOWER EXTREMITIES: No areas of abnormal metabolic activity in the soft tissues of the lower extremities. BONES: No abnormal metabolic activity in the visualized skeleton. ADDITIONAL CT FINDINGS: No additional significant findings on the noncontrast CT images. OTHER: Blood pool 1.2 SUV. Liver background 1.7 SUV. IMPRESSION: Hypermetabolic left lower lobe pulmonary nodule. Hypermetabolic thoracic adenopathy. N o distant metastasis. TECHNICAL DOCUMENTATION: JOB ID: [id number] 2011 [employer]- All Rights Reserved Reading location - IP/workstation name: [email or web address]
== END ==
LOC: RAD 11:10
PROVIDERS: ATTEND Internal Medicine Hematology & Oncology
DX: C34.12 Malignant neoplasm of upper lobe, left bronchus or lung (principal)
CPT/HCPCS: 78815; A9552

== ENCOUNTER 2019-12-17 08:40 | Day surgery (SDC) | payer MEDICAID ==
[2019-12-14 11:29] LABS: HEMATOCRIT 42.6 % (36.0-47.0); HEMOGLOBIN 14.7 g/dL (12.0-15.5); MEAN CORPUSCULAR HEMOGLOBIN 31.2 pg (27.0-33.4); MEAN CORPUSCULAR HGB CONC 34.5 g/dL (32.0-36.0); MEAN CORPUSCULAR VOLUME 90 fl (80-97); PLATELET COUNT 377 10^3/uL (150-450); RED BLOOD COUNT 4.71 10^6/uL (3.72-5.28); RED CELL DISTRIBUTION WIDTH 13.4 % (11.5-14.0); WHITE BLOOD COUNT 9.4 10^3/uL (4.0-10.5)
--- NOTE | 2019-12-14 12:32 | RADIOLOGY REPORT (SQ) ---
EXAM DESCRIPTION: CHEST PA/LATERAL IMAGES COMPLETED DATE/TIME: 12/14/2019 12:04 pm REASON FOR STUDY: PRE-OP COMPARISON: 11/08/2019 EXAM PARAMETERS: NUMBER OF VIEWS: two views TECHNIQUE: Digital Frontal and Lateral radiographic views of the chest acquired. RADIATION DOSE: NA LIMITATIONS: none FINDINGS: LUNGS AND PLEURA: Left hilar mass/adenopathy. No acute infiltrate or effusion. MEDIASTINUM AND HILAR STRUCTURES: See above. HEART AND VASCULAR STRUCTURES: Heart normal size. No evidence for failure. BONES: No acute findings. HARDWARE: None in the chest. OTHER: No other significant finding. IMPRESSION: Left hilar mass/adenopathy. No acute infiltrate. TECHNICAL DOCUMENTATION: JOB ID: [id number] 2010 [employer]- All Rights Reserved Reading location - IP/workstation name: [email or web address]
[~2019-12-17 08:40] MED LIST: ACETAMINOPHEN 325 MG TABLET PO PRN; CEFAZOLIN 1 GM/D5W RTU 1 GM/50 ML RTUPB IV ONE; CEFAZOLIN 1 GM/D5W RTU 1 GM/50 ML RTUPB IV PRN; LACTATED RINGERS 1000 ML IV PRN; LIDOCAINE 0.5% INJ-PF (5 MG/ML) 50 ML SDV SUBCUT PRN
[2019-12-17 09:17] LABS: INTERNATIONAL RATION (INR) 0.92; PROTHROMBIN TIME 12.6 SEC (11.4-15.4)
[2019-12-17 09:18] LABS: PARTIAL THROMBOPLASTIN TIME 33.6 SEC (23.5-35.8)
[2019-12-17] MEDS ORDERED: ALBUTEROL SULFATE 0.083% NEB 2.5 MG/3 ML AMPUL NEB ONE (09:18)
[2019-12-17] MEDS ORDERED: IPRATROPIUM/ALBUTEROL 0.5-2.5 MG/3 ML AMPUL NEB ONE (09:20)
[2019-12-17] MEDS ORDERED: MIDAZOLAM 2 MG/2 ML INJ ONE (09:37)
[2019-12-17] MEDS ORDERED: PROPOFOL INJ 200 MG/20 ML VIAL IV ONE (09:37)
[2019-12-17] MEDS ORDERED: FENTANYL CITRATE INJ/PF 100 MCG/2 ML AMPUL ONE (09:37)
[2019-12-17] MEDS ORDERED: HEPARIN SOD (PORCINE) 1,000 UNIT/ML 1 ML VIAL ONE (09:40)
[2019-12-17] MEDS ORDERED: LIDOCAINE 1%/EPINEPHRINE INJ 20 ML VIAL ONE (09:40)
[2019-12-17] MEDS ORDERED: DIPHENHYDRAMINE HCL 50 MG/ML VIAL IV PRN (10:05)
[2019-12-17] MEDS ORDERED: FENTANYL CITRATE INJ/PF 100 MCG/2 ML AMPUL IV PRN ×3 (10:05)
[2019-12-17] MEDS ORDERED: PROMETHAZINE HCL INJ 25 MG/1 ML VIAL IV PRN ×2 (10:05)
[2019-12-17] MEDS ORDERED: MEPERIDINE HCL/PF INJ 25 MG/1 ML DISP.SYRIN IV PRN (10:05)
[2019-12-17] MEDS ORDERED: OXYCODONE-ACETAMINOPHEN 5-325 MG TABLET PO PRN (10:58)
--- NOTE | 2019-12-17 10:58 | Operative Report ---
Nonrecallable Operative Report DATE OF SURGERY: 12/17/19 PREOPERATIVE DIAGNOSIS: lung cancer POSTOPERATIVE DIAGNOSIS: lung cancer OPERATION: portacath left chest SURGEON: YAHAIRA MONTANO ANESTHESIA: Moderate Sedation TISSUE REMOVED OR ALTERED: none COMPLICATIONS: none ESTIMATED BLOOD LOSS: 5cc INTRAOPERATIVE FINDINGS: see note PROCEDURE: Patient was brought to the operating when awake alert stable condition placed on the upper table supine position given IV sedation. The left neck and chest were prepped and draped in usual sterile fashion for the procedure. After appropriate timeout site verification procedure commenced. We anesthetized the skin under the left clavicle with 1% lidocaine plain we then accessed the subclavian vein with a 16-gauge needle and through the needle we passed a wire confirmed the superior vena cava on fluoroscopy. The tear-away introducer dilator was then placed over the wire into the superior vena cava the catheter was placed through the tear-away introducer which was torn away. Confirmation of the tip of the catheter was made above the right atrium on the fluoroscopy fluoroscopy. On the left anterior chest wall at the fifth intercostal space a transverse incision was made in the skin after anesthetizing with 1% lidocaine plain. A subcutaneous pocket was made for the port. The catheter was then tunneled from the subclavian stick site to the Port-A-Cath pocket. It was attached to the port and placed underneath the skin and the skin pocket was closed with interrupted 3-0 Vicryl sutures and 4-0 Biosyn close the skin. The I then injected Omnipaque dye into the port to confirm good position of the port and the catheter without kinking. Withdrew easily. It was then heparinized with heparinized saline solution. Steri-Strips completed the procedure. Estimated blood loss was less than 5 cc. Sponge needle counts were correct x2 she was awakened in the operating room transferred recovery in stable condition.
--- NOTE | 2019-12-17 11:01 | Discharge Summary ---
Discharge Summary (SDC) - Discharge Final Diagnosis: lung cancer Date of Surgery: 12/17/19 Discharge Date: 12/17/19 Condition: Good Forms: ASU Anesthesia D/C Instruction, Discharge POC-Surgical Service Referrals: YAHAIRA MONTANO MD [ACTIVE STAFF] - 12/28/19 1:15 pm Discharge Diet: As Tolerated Discharge Activity: Activity As Tolerated, No Lifting Over 10 Pounds Report the Following to Your Physician Immediately: Increase in Pain, Unusual Bleeding - f/u with oncology nurses or with me in surgery clinic in 7-10 days.
[2019-12-17] MEDS ORDERED: OXYCODONE-ACETAMINOPHEN 5-325 MG TABLET ONE (12:05)
--- NOTE | 2019-12-17 12:24 | RADIOLOGY REPORT (SQ) ---
EXAM DESCRIPTION: CHEST SINGLE VIEW IMAGES COMPLETED DATE/TIME: 12/17/2019 11:58 am REASON FOR STUDY: portacath COMPARISON: 12/14/2019 EXAM PARAMETERS: NUMBER OF VIEWS: One view. TECHNIQUE: Single frontal radiographic view of the chest acquired. RADIATION DOSE: NA LIMITATIONS: None. FINDINGS: LUNGS AND PLEURA: There is no pneumothorax. No acute pulmonary infiltrate. No pleural ef fusion. MEDIASTINUM AND HILAR STRUCTURES: Left hilar mass persists. HEART AND VASCULAR STRUCTURES: Heart normal in size. Normal vasculature. BONES: No acute findings. HARDWARE: Injection port on the left. The tip of the catheter is in the superior vena cava. OTHER: No other significant finding. IMPRESSION: No pneumothorax. Left hilar mass. Injection port as described. TECHNICAL DOCUMENTATION: JOB ID: [id number] 2010 [employer]- All Rights Reserved Reading location - IP/workstation name: [email or web address]
--- NOTE | 2019-12-17 13:24 | RADIOLOGY REPORT (SQ) ---
EXAM DESCRIPTION: FLUORO/CV PLACEMENT IMAGES COMPLETED DATE/TIME: 12/17/2019 11:08 am REASON FOR STUDY: LEFT PORT-A-CATH C34.90 MALIGNANT NEOPLASM OF UNSP PART OF UNSP BRONCHUS OR L COMPARISON: None. FLUOROSCOPY TIME: 2.2 minutes. 2 images saved to PACS. TECHNIQUE: Intra-operative images acquired during surgical procedure to evaluate progress. NUMBER OF IMAGES: 2 images. LIMITATIONS: None. FINDINGS: Images of the chest acquired during port placement. IMPRESSION: IMAGE(S) OBTAINED DURING PROCEDURE. COMMENT: Quality ID [id number]: Final reports for procedures using fluoroscopy that document radiation exp osure indices, or exposure time and number of fluorographic images (if radiation exposure indices are not available) Please consult full operative report of the attending physician for description of the procedure. TECHNICAL DOCUMENTATION: JOB ID: [id number] 2010 [employer]- All Rights Reserved Reading location - IP/workstation name: [email or web address]
[2019-12-17 14:12] VITALS: BP 120/74
== END 2019-12-17 12:30 | disposition home or self-care (01) ==
LOC: OROUT 08:40
PROVIDERS: ATTEND Surgery
DX: C34.90 Malignant neoplasm of unspecified part of unspecified bronchus or lung (principal); J44.9 Chronic obstructive pulmonary disease, unspecified; I26.99 Other pulmonary embolism without acute cor pulmonale; Z79.01 Long term (current) use of anticoagulants; Z79.899 Other long term (current) drug therapy
CPT/HCPCS: 36561; 36415; 85027; 85610; 85730; 87635; 71046; 71045; 77001; 00532; C1766; C1788; Q9967; J2250; J0690; J3010; J1644; J3490; J2704; C9803; 532; J7613

== ENCOUNTER → 2019-12-18 | Outpatient (CLI) | payer MEDICAID ==
[2019-12-18 16:10] LABS: ALBUMIN 4.5 g/dL (3.5-5.0); ALKALINE PHOSPHATASE 82 U/L (38-126); ANION GAP 9 (5-19); ASPARTATE AMINO TRANSFERASE 34 U/L (14-36); BILIRUBIN,DIRECT 0.3 mg/dL (0.0-0.4); BILIRUBIN,TOTAL 0.7 mg/dL (0.2-1.3); BLOOD UREA NITROGEN 9 mg/dL (7-20); CALCIUM 9.9 mg/dL (8.4-10.2); CARBON DIOXIDE 34 mmol/L (22-30); CHLORIDE 94 mmol/L (98-107); GLUCOSE 122 mg/dL (75-110); POTASSIUM 4.2 mmol/L (3.6-5.0); TOTAL PROTEIN 7.7 g/dL (6.3-8.2)
== END ==
LOC: OD 15:04
PROVIDERS: ATTEND Internal Medicine Hematology & Oncology
DX: C34.12 Malignant neoplasm of upper lobe, left bronchus or lung (principal)
CPT/HCPCS: 36415; 80053

== ENCOUNTER 2020-01-13 07:50 | Outpatient (CLI) | payer MEDICAID ==
[~2020-01-13 07:50] MED LIST changes: -ACETAMINOPHEN 325 MG TABLET PO PRN; -CEFAZOLIN 1 GM/D5W RTU 1 GM/50 ML RTUPB IV ONE; -CEFAZOLIN 1 GM/D5W RTU 1 GM/50 ML RTUPB IV PRN; +CISPLATIN 85 MG in NORMAL SALINE 500 ML IV PRN; +DEXAMETHASONE SOD PHOSPHATE 10 MG in NORMAL SALINE 50 ML IV PRN; +ETOPOSIDE IV PRN; +FOSAPREPITANT DIMEGLUMINE 150 MG in NORMAL SALINE 150 ML IV PRN; +FUROSEMIDE INJ/PF 40 MG/4 ML SDV IV PRN; -LACTATED RINGERS 1000 ML IV PRN; -LIDOCAINE 0.5% INJ-PF (5 MG/ML) 50 ML SDV SUBCUT PRN; +NORMAL SALINE 1000 ML 1,000 ML IV PRN; +NORMAL SALINE IV PRN; +PALONOSETRON 0.25 MG/5 ML SDV IV PRN
[2020-01-13 10:42] VITALS: BP 138/91
== END 2020-01-13 13:15 | disposition home or self-care (01) ==
LOC: II 07:50 → 5TH 08:05 → II 13:15
PROVIDERS: ATTEND Internal Medicine Hematology & Oncology
DX: Z51.11 Encounter for antineoplastic chemotherapy (principal); C34.12 Malignant neoplasm of upper lobe, left bronchus or lung
CPT/HCPCS: 96413; 96367; 96375; 96417; J9060; J1940; J9181; J7050; J7040; J1100; J1453; J2469; J1642

== ENCOUNTER 2020-01-14 10:55 | Outpatient (CLI) | payer MEDICAID ==
[~2020-01-14 10:55] MED LIST changes: -CISPLATIN 85 MG in NORMAL SALINE 500 ML IV PRN; +DEXAMETHASONE 10 MG in NS 50 ML IV PRN; -DEXAMETHASONE SOD PHOSPHATE 10 MG in NORMAL SALINE 50 ML IV PRN; -FOSAPREPITANT DIMEGLUMINE 150 MG in NORMAL SALINE 150 ML IV PRN; -FUROSEMIDE INJ/PF 40 MG/4 ML SDV IV PRN; -NORMAL SALINE 1000 ML 1,000 ML IV PRN; +NORMAL SALINE 250 ML @ KVO IV PRN; -PALONOSETRON 0.25 MG/5 ML SDV IV PRN
[2020-01-14 11:06] VITALS: BP 117/72
== END 2020-01-14 13:30 | disposition home or self-care (01) ==
LOC: II 10:55 → 5TH 10:57 → II 13:30
PROVIDERS: ATTEND Internal Medicine Hematology & Oncology
DX: Z51.11 Encounter for antineoplastic chemotherapy (principal); C34.12 Malignant neoplasm of upper lobe, left bronchus or lung
CPT/HCPCS: 96413; 96367; J9181; J7040; J1100; J1642

== ENCOUNTER 2020-01-15 09:53 | Outpatient (CLI) | payer MEDICAID ==
[2020-01-15 10:47] VITALS: BP 141/89
== END 2020-01-15 12:00 | disposition home or self-care (01) ==
LOC: II 09:53 → 5TH 10:17 → II 12:00
PROVIDERS: ATTEND Internal Medicine Hematology & Oncology
DX: Z51.11 Encounter for antineoplastic chemotherapy (principal); C34.12 Malignant neoplasm of upper lobe, left bronchus or lung
CPT/HCPCS: 96413; 96367; J9181; J7040; J1100; J1642; 96366

== ENCOUNTER 2020-02-10 08:01 | Outpatient (CLI) | payer MEDICAID ==
[~2020-02-10 08:01] MED LIST changes: +CISPLATIN 86 MG in NORMAL SALINE 500 ML IV PRN; +FOSAPREPITANT 150 MG in NS 150 ML IV PRN; +FUROSEMIDE INJ/PF 20 MG/2 ML SDV IV PRN; -NORMAL SALINE 250 ML @ KVO IV PRN; +NORMAL SALINE 500 ML @ KVO IV PRN; +PALONOSETRON 0.25 MG/5 ML VIAL IV PRN
[2020-02-10 08:15] VITALS: BP 110/62
== END 2020-02-10 13:30 | disposition home or self-care (01) ==
LOC: II 08:01 → 5TH 08:03 → II 13:30
PROVIDERS: ATTEND Internal Medicine Hematology & Oncology
DX: Z51.11 Encounter for antineoplastic chemotherapy (principal); C34.12 Malignant neoplasm of upper lobe, left bronchus or lung
CPT/HCPCS: 96413; 96367; 96375; 96417; J9060; J1940; J9181; J7050; J7040; J1100; J1453; J2469; J1642

== ENCOUNTER 2020-02-11 09:44 | Outpatient (CLI) | payer MEDICAID ==
[~2020-02-11 09:44] MED LIST changes: -CISPLATIN 86 MG in NORMAL SALINE 500 ML IV PRN; +DEXAMETHASONE SOD PHOSPHATE 10 MG in NORMAL SALINE 50 ML IV PRN; -FOSAPREPITANT 150 MG in NS 150 ML IV PRN; -FUROSEMIDE INJ/PF 20 MG/2 ML SDV IV PRN; +NORMAL SALINE 250 ML @ KVO IV PRN; -NORMAL SALINE 500 ML @ KVO IV PRN; -PALONOSETRON 0.25 MG/5 ML VIAL IV PRN
[2020-02-11 13:14] VITALS: BP 131/68
== END 2020-02-11 13:15 | disposition home or self-care (01) ==
LOC: II 09:44 → 5TH 09:45 → II 13:15
PROVIDERS: ATTEND Internal Medicine Hematology & Oncology
DX: Z51.11 Encounter for antineoplastic chemotherapy (principal); C34.12 Malignant neoplasm of upper lobe, left bronchus or lung
CPT/HCPCS: 96413; 96367; J9181; J7040; J1100; J1642

== ENCOUNTER 2020-02-12 10:52 | Outpatient (CLI) | payer MEDICAID ==
[~2020-02-12 10:52] MED LIST changes: -DEXAMETHASONE SOD PHOSPHATE 10 MG in NORMAL SALINE 50 ML IV PRN; +PEGFILGRASTIM 6 MG/0.6 ML ONPRO KIT SUBCUT PRN
[2020-02-12 11:35] VITALS: BP 139/76
== END 2020-02-12 14:26 | disposition home or self-care (01) ==
LOC: II 10:52 → 5TH 10:53 → II 14:26
PROVIDERS: ATTEND Internal Medicine Hematology & Oncology
DX: Z51.11 Encounter for antineoplastic chemotherapy (principal); C34.12 Malignant neoplasm of upper lobe, left bronchus or lung
CPT/HCPCS: 96413; 96367; 96372; J9181; J7040; J1100; J1642; J2505

== ENCOUNTER 2020-03-08 07:54 | Outpatient (CLI) | payer MEDICAID ==
[~2020-03-08 07:54] MED LIST changes: +CISPLATIN 86 MG in NORMAL SALINE 500 ML IV PRN; +FOSAPREPITANT 150 MG in NS 150 ML IV PRN; +FUROSEMIDE INJ/PF 20 MG/2 ML SDV IV PRN; +NORMAL SALINE 1000 ML @ AS DIRECTED IV PRN; -NORMAL SALINE 250 ML @ KVO IV PRN; +NORMAL SALINE 500 ML IV PRN; +PALONOSETRON 0.25 MG/5 ML VIAL IV PRN; -PEGFILGRASTIM 6 MG/0.6 ML ONPRO KIT SUBCUT PRN
[2020-03-08 09:34] VITALS: BP 125/68
== END 2020-03-08 12:26 | disposition home or self-care (01) ==
LOC: II 07:54 → 5TH 07:55 → II 12:26
PROVIDERS: ATTEND Internal Medicine Hematology & Oncology
DX: Z51.11 Encounter for antineoplastic chemotherapy (principal); C34.12 Malignant neoplasm of upper lobe, left bronchus or lung
CPT/HCPCS: 96413; 96367; 96375; 96417; J9060; J1940; J9181; J7050; J7040; J1100; J1453; J2469; J1642

== ENCOUNTER 2020-03-09 10:02 | Outpatient (CLI) | payer MEDICAID ==
[~2020-03-09 10:02] MED LIST changes: -CISPLATIN 86 MG in NORMAL SALINE 500 ML IV PRN; -FOSAPREPITANT 150 MG in NS 150 ML IV PRN; -FUROSEMIDE INJ/PF 20 MG/2 ML SDV IV PRN; -NORMAL SALINE 1000 ML @ AS DIRECTED IV PRN; +NORMAL SALINE 250 ML @ KVO IV PRN; -NORMAL SALINE 500 ML IV PRN; -PALONOSETRON 0.25 MG/5 ML VIAL IV PRN
[2020-03-09 11:05] VITALS: BP 122/72
== END 2020-03-09 13:15 | disposition home or self-care (01) ==
LOC: II 10:02 → 5TH 10:34 → II 13:15
PROVIDERS: ATTEND Internal Medicine Hematology & Oncology
DX: Z51.11 Encounter for antineoplastic chemotherapy (principal); C34.12 Malignant neoplasm of upper lobe, left bronchus or lung
CPT/HCPCS: 96413; 96367; J9181; J7040; J1100; J1642

== ENCOUNTER 2020-03-10 10:00 | Outpatient (CLI) | payer MEDICAID ==
[2020-03-10 10:16] VITALS: BP 150/89
== END 2020-03-10 12:30 | disposition home or self-care (01) ==
LOC: II 10:00 → 5TH 10:05 → II 12:30
PROVIDERS: ATTEND Internal Medicine Hematology & Oncology
DX: Z51.11 Encounter for antineoplastic chemotherapy (principal); C34.12 Malignant neoplasm of upper lobe, left bronchus or lung
CPT/HCPCS: 96413; 96367; J9181; J7040; J1100; J1642

== ENCOUNTER → 2020-04-04 | Outpatient (CLI) | payer MEDICAID ==
--- NOTE | 2020-04-04 16:27 | RADIOLOGY REPORT (SQ) ---
EXAM DESCRIPTION: CHEST 2 VIEWS IMAGES COMPLETED DATE/TIME: 04/04/2020 3:57 pm REASON FOR STUDY: (R05)COUGH COMPARISON: 12/17/2019 EXAM PARAMETERS: NUMBER OF VIEWS: two views TECHNIQUE: Digital Frontal and Lateral radiographic views of the chest acquired. RADIATION DOSE: NA LIMITATIONS: none FINDINGS: LUNGS AND PLEURA: No opacities, masses or pneumothorax. No pleural effusion. MEDIASTINUM AND HILAR STRUCTURES: No masses or contour abnormalities. HEART AND VASCULAR STRUCTURES: Heart normal size. No evidence for failure. BONES: No acute findings. HARDWARE: Injection port on the left. OTHER: No other significant finding. IMPRESSION: NO ACUTE RADIOGRAPHIC FINDING IN THE CHEST. TECHNICAL DOCUMENTATION: JOB ID: [id number] 2010 [employer]- All Rights Reserved Reading location - IP/workstation name: [email or web address]
== END ==
LOC: RAD 15:44
PROVIDERS: ATTEND Nurse Practitioner Family
DX: R05 Cough (principal); R06.02 Shortness of breath; Z85.118 Personal history of other malignant neoplasm of bronchus and lung
CPT/HCPCS: 71046

== ENCOUNTER 2020-04-05 09:11 | Outpatient (CLI) | payer MEDICAID ==
[~2020-04-05 09:11] MED LIST changes: +CISPLATIN 86 MG in NORMAL SALINE 500 ML IV PRN; +CISPLATIN IV PRN; +DEXAMETHASONE SOD PHOSPHATE 10 MG in NORMAL SALINE 50 ML IV PRN; +ETOPOSIDE 175 MG in NORMAL SALINE 500 ML IV PRN; +FOSAPREPITANT 150 MG in NS 150 ML IV PRN; +FOSAPREPITANT DIMEGLUMINE 150 MG in NORMAL SALINE 150 ML IV PRN; +FUROSEMIDE INJ/PF 20 MG/2 ML SDV IV PRN; -NORMAL SALINE 250 ML @ KVO IV PRN; +NORMAL SALINE 500 ML @ KVO IV PRN; +NORMAL SALINE 500 ML IV PRN; +PALONOSETRON 0.25 MG/5 ML SDV IV PRN; +PALONOSETRON 0.25 MG/5 ML VIAL IV PRN
[2020-04-05 09:33] VITALS: BP 113/67
== END 2020-04-05 14:30 | disposition home or self-care (01) ==
LOC: II 09:11 → 5TH 09:12 → II 14:30
PROVIDERS: ATTEND Internal Medicine Hematology & Oncology
DX: Z51.11 Encounter for antineoplastic chemotherapy (principal); C34.12 Malignant neoplasm of upper lobe, left bronchus or lung
CPT/HCPCS: 96413; 96367; 96375; 96417; J9060; J1940; J9181; J7050; J7040; J1100; J1453; J2469; J1642

== ENCOUNTER 2020-04-06 09:48 | Outpatient (CLI) | payer MEDICAID ==
[~2020-04-06 09:48] MED LIST changes: -CISPLATIN 86 MG in NORMAL SALINE 500 ML IV PRN; -CISPLATIN IV PRN; -FOSAPREPITANT 150 MG in NS 150 ML IV PRN; -FOSAPREPITANT DIMEGLUMINE 150 MG in NORMAL SALINE 150 ML IV PRN; -FUROSEMIDE INJ/PF 20 MG/2 ML SDV IV PRN; +NORMAL SALINE 250 ML @ KVO IV PRN; +NORMAL SALINE 250 ML IV PRN; -NORMAL SALINE 500 ML @ KVO IV PRN; -NORMAL SALINE 500 ML IV PRN; -PALONOSETRON 0.25 MG/5 ML SDV IV PRN; -PALONOSETRON 0.25 MG/5 ML VIAL IV PRN
[2020-04-06 10:35] VITALS: BP 133/84
== END 2020-04-06 12:15 | disposition home or self-care (01) ==
LOC: II 09:48 → 5TH 09:49 → II 12:15
PROVIDERS: ATTEND Internal Medicine Hematology & Oncology
DX: Z51.11 Encounter for antineoplastic chemotherapy (principal); C34.12 Malignant neoplasm of upper lobe, left bronchus or lung
CPT/HCPCS: 96413; 96367; J9181; J7040; J1100; J1642

== ENCOUNTER 2020-04-07 09:50 | Outpatient (CLI) | payer MEDICAID ==
[2020-04-07 09:57] VITALS: BP 140/86
== END 2020-04-07 12:28 | disposition home or self-care (01) ==
LOC: II 09:50 → 5TH 09:52 → II 12:28
PROVIDERS: ATTEND Internal Medicine Hematology & Oncology
DX: Z51.11 Encounter for antineoplastic chemotherapy (principal); C34.12 Malignant neoplasm of upper lobe, left bronchus or lung
CPT/HCPCS: 96413; 96367; J9181; J7040; J1100; J1642

== ENCOUNTER 2020-04-08 12:22 | Outpatient (CLI) | payer MEDICAID ==
[~2020-04-08 12:22] MED LIST changes: -DEXAMETHASONE 10 MG in NS 50 ML IV PRN; -DEXAMETHASONE SOD PHOSPHATE 10 MG in NORMAL SALINE 50 ML IV PRN; -ETOPOSIDE 175 MG in NORMAL SALINE 500 ML IV PRN; -ETOPOSIDE IV PRN; -NORMAL SALINE 250 ML @ KVO IV PRN; -NORMAL SALINE 250 ML IV PRN; -NORMAL SALINE IV PRN; +PEGFILGRASTIM-CBQV 6 MG/0.6 ML SYRINGE SUBCUT PRN
[2020-04-08 12:29] VITALS: BP 136/79
== END 2020-04-08 12:44 | disposition home or self-care (01) ==
LOC: II 12:22 → 5TH 12:23 → II 12:44
PROVIDERS: ATTEND Internal Medicine Hematology & Oncology
DX: Z76.89 Persons encountering health services in other specified circumstances (principal); C34.12 Malignant neoplasm of upper lobe, left bronchus or lung
CPT/HCPCS: 96372; Q5111